=== PATIENT | female | born 1950 | race Caucasian/White ===

== ENCOUNTER 2017-06-02 16:59 | Inpatient (IN) | payer MEDICARE, MEDICAID ==
[~2017-06-02] VITALS: Ht 167.6 cm; Wt 81.6 kg
[~2017-06-02 16:59] MED LIST: ADDERAL20 MG ORAL; AMBIEN5 M1 PO; DILANTIN100 MG ORAL; DILANTIN30 MG ORAL; EFFEXOR XR150 MG ORAL; EFFEXOR-XR150 MG ORAL; LIPITOR80 MG ORAL; MIRALAX17 G2 ORAL; PHENYTOIN MC; TYLENOL650 MG/20. ORAL
--- NOTE | 2017-06-02 17:40 | Emergency Room Report ---
History of Present Illness General Chief Complaint: Head, Face, Neck Trauma Source: Patient, Medical Record, EMS Present Illness HPI 67-year-old female, wheelchair-bound for one month due to unsteady gait, presenting with minor head trauma. Patient states that she was rolling her wheelchair, was going very fast, unable to stop and hit the left side of her face onto a pole. Patient denies falling out of her wheelchair, no LOC. No nausea no vomiting. Denies being on any blood thinners. States that she has a history of seizures but has not had a seizure for many years Denies any other complaints Allergies: Coded Allergies: CODEINE (Verified Allergy, Unknown, 05/10/16) Patient History Past Medical History: see triage record Past Surgical History: none Pertinent Family History: none Last Menstrual Period: na Reviewed Nursing Documentation: PMH: Agreed, PSxH: Agreed Nursing Documentation-PMH Past Medical History: No History, Except For Hx Cardiac Problems: No Hx Asthma: Yes Hx Cancer: No Hx Gastrointestinal Problems: No Hx Seizures: Yes Review of Systems All Other Systems: negative except mentioned in HPI Physical Exam Vital Signs Date Time Temp Pulse Resp B/P (MAP) Pulse Ox O2 Delivery O2 Flow Rate FiO2 06/02/17 17:05 97.2 84 16 137/84 96 Room Air Sp02 EP Interpretation: reviewed, normal General Appearance: normal inspection, well appearing, no apparent distress, alert, GCS 15, non-toxic, other - Calm cooperative Head: normocephalic - Left periorbital region and left forehead with ecchymosis and nonboggy hematoma Eyes: bilateral eye normal inspection, bilateral eye PERRL, bilateral eye EOMI , bilateral eye other - No exophthalmus bilaterally, left periorbital swelling, tender to palpation ENT: normal ENT inspection, normal pharynx, normal voice, moist mucus membranes Neck: normal inspection, full range of motion, supple, no bony tend Respiratory: normal inspection, lungs clear, normal breath sounds, no respiratory distress, no retraction, no wheezing, speaking full sentences, chest symmetrical Cardiovascular #1: normal inspection, regular rate, rhythm, normal capillary refill Cardiovascular #2: 2+ radial (R), 2+ radial (L) Gastrointestinal: normal inspection, non tender, soft, non-distended, no guarding Musculoskeletal: normal inspection, back normal, normal range of motion, non- tender Neurologic: normal inspection, alert, oriented x3, responsive, motor strength/ tone normal, sensory intact, normal gait, speech normal Psychiatric: normal inspection, judgement/insight normal, memory normal Skin: normal inspection, normal color, no rash, warm/dry, well hydrated, normal turgor Medical Decision Making Diagnostic Impression: Primary Impression: Unsteady gait Additional Impressions: UTI (urinary tract infection) Minor head injury ER Course 67-year-old female with minor head injury after a mechanical accident DDX: Rule out intracranial process/orbital fractures Plan: CT head pain control ER course: Patient has remained stable during ED stay. CT head neg +UTI Disposition: Pt admitted to med surg Patient was signed out to Dr. Vitor Moore, who has accepted patient for admission. Please note that this Emergency Department Report was dictated using [employer] mixer technology software, occasionally this can lead to erroneous entry secondary to interpretation by the dictation equipment Laboratory Tests Test 06/02/17 18:53 06/02/17 19:11 White Blood Count 9.0 K/UL (4.8-10.8) Red Blood Count 4.49 M/UL (4.20-5.40) Hemoglobin 13.9 G/DL (12.0-16.0) Hematocrit 41.6 % (37.0-47.0) Mean Corpuscular Volume 93 FL (80-99) Mean Corpuscular Hemoglobin 30.9 PG (27.0-31.0) Mean Corpuscular Hemoglobin Concent 33.3 G/DL (32.0-36.0) Red Cell Distribution Width 12.3 % (11.6-14.8) Platelet Count 243 K/UL (150-450) Mean Platelet Volume 6.0 FL (6.5-10.1) L Neutrophils (%) (Auto) 51.9 % (45.0-75.0) Lymphocytes (%) (Auto) 36.6 % (20.0-45.0) Monocytes (%) (Auto) 7.7 % (1.0-10.0) Eosinophils (%) (Auto) 2.5 % (0.0-3.0) Basophils (%) (Auto) 1.3 % (0.0-2.0) Sodium Level 141 mEQ/L (135-145) Potassium Level 4.0 mEQ/L (3.4-4.9) Chloride Level 103 mEQ/L (98-107) Carbon Dioxide Level 29 mEQ/L (20-30) Anion Gap 9 (5-15) Blood Urea Nitrogen 13 mg/dL (7-23) Creatinine 0.7 mg/dL (0.5-0.9) Estimate Glomerular Filtration Rate > 60 mL/min (>60) Glucose Level 162 mg/dL (74-106) H Calcium Level 8.5 mg/dL (8.6-10.2) L Total Bilirubin < 0.2 mg/dL (0.0-1.2) Aspartate Amino Transferase (AST) 19 U/L (5-40) Alanine Aminotransferase (ALT) 13 U/L (3-33) Alkaline Phosphatase 95 U/L (35-104) Total Creatine Kinase 70 U/L (26-140) Creatine Kinase MB 1.8 ng/mL (< 3.8) Creatine Kinase MB Relative Index 2.5 Troponin I < 0.30 ng/mL (<=0.30) Total Protein 6.2 g/dL (6.6-8.7) L Albumin 3.7 g/dL (3.5-5.2) Globulin 2.5 g/dL Albumin/Globulin Ratio 1.4 (1.0-2.7) Urine Color [place] Urine Appearance Slightly cloudy Urine pH 7 (4.5-8.0) Urine Specific [place] 1.010 (1.005-1.035) Urine Protein Negative (NEGATIVE) Urine Glucose (UA) Negative (NEGATIVE) Urine Ketones Negative (NEGATIVE) Urine Occult Blood 1+ (NEGATIVE) H Urine Nitrite Negative (NEGATIVE) Urine Bilirubin Negative (NEGATIVE) Urine Ictotest Negative Urine Urobilinogen Normal MG/DL (0.0-1.0) Urine Leukocyte Esterase 3+ (NEGATIVE) H Urine RBC 2-4 /HPF (0 - 2) H Urine WBC 20-30 /HPF (0 - 2) H Urine Squamous Epithelial Cells Many /LPF (NONE/OCC) H Urine Bacteria Moderate /HPF (NONE) H EKG Diagnostic Results Rate: normal Rhythm: NSR ST Segments: no acute changes ASA given to the pt in ED: No Rhythm Strip Diag. Results EP Interpretation: yes Rate: 79 Rhythm: NSR, no PVC's, no ectopy CT/MRI/US Diagnostic Results CT/MRI/US Diagnostic Results : Imaging Test Ordered: CT head Impression no acute intracranial findings L periorbital contusion Electronically signed by Tiffany Spear MD Last Vital Signs Date Time Temp Pulse Resp B/P (MAP) Pulse Ox O2 Delivery O2 Flow Rate FiO2 06/02/17 17:05 97.2 84 16 137/84 96 Room Air Disposition: ADMITTED INPATIENT Condition: Serious Tiffany Spear M.D. Jun 02, 2017 17:40
[2017-06-02 18:25] VITALS: BP 134/79
[2017-06-02 19:05] LABS: BASOPHILS % (AUTO) 1.3 % (0.0-2.0); EOSINOPHILS % (AUTO) 2.5 % (0.0-3.0); LYMPHOCYTES % (AUTO) 36.6 % (20.0-45.0); MEAN CORPUSCULAR HEMOGLOBIN 30.9 PG (27.0-31.0); MEAN CORPUSCULAR HGB CONC 33.3 G/DL (32.0-36.0); MEAN CORPUSCULAR VOLUME 93 FL (80-99); MONOCYTES % (AUTO) 7.7 % (1.0-10.0); NEUTROPHILS % (AUTO) 51.9 % (45.0-75.0); PLATELET COUNT 243 K/UL (150-450); RED BLOOD COUNT 4.49 M/UL (4.20-5.40); RED CELL DISTRIBUTION WIDTH 12.3 % (11.6-14.8)
[2017-06-02 19:22] LABS: ALANINE AMINOTRANSFERASE 13 U/L (3-33); ALBUMIN/GLOBULIN RATIO 1.4 (1.0-2.7); ANION GAP 9 (5-15); ASPARTATE AMINO TRANSFERASE 19 U/L (5-40); CALCIUM 8.5 mg/dL (8.6-10.2); CARBON DIOXIDE 29 mEQ/L (20-30); CHLORIDE 103 mEQ/L (98-107); CREATININE 0.7 mg/dL (0.5-0.9); GLOMERULAR FILTRATION RATE > 60 mL/min (>60); HEMOLYSIS 4; SODIUM 141 mEQ/L (135-145); TOTAL PROTEIN 6.2 g/dL (6.6-8.7); TROPONIN I < 0.30 ng/mL (<=0.30)
[2017-06-02 19:33] LABS: CKMB 1.8 ng/mL (< 3.8)
[2017-06-02 19:39] LABS: APPEARANCE,URINE SLIGHTLY CLOUDY; KETONES,URINE NEGATIVE (NEGATIVE); LEUKOCYTE ESTERASE ,URINE 3+ (NEGATIVE); NITRITE,URINE NEGATIVE (NEGATIVE); PH,URINE 7 (4.5-8.0); PROTEIN,URINE NEGATIVE (NEGATIVE); UROBILINOGEN,URINE NORMAL MG/DL (0.0-1.0)
[2017-06-02 19:50] LABS: BACTERIA,URINE MODERATE /HPF; ICTOTEST NEGATIVE; SQUAMOUS EPITHELIAL CELL,UR MANY /LPF (NONE/OCC); WBC,URINE 20-30 /HPF (0 - 2)
[2017-06-02] MEDS ORDERED: cefTRIAXone 1 GM in NS 55 ML IVPB ONE (20:00)
[2017-06-02] MEDS ORDERED: LORAZEPAM1 MG ORAL (20:10)
[2017-06-02] MEDS ORDERED: DUONEB 0.5-3(2.53 ML HHN (20:10)
[2017-06-02] MEDS ORDERED: MIRTAZAPINE15 MG ORAL (20:10)
[2017-06-02] MEDS ORDERED: ADULT ROBITUSS118 ML ORAL (20:10)
[2017-06-02] MEDS ORDERED: EFFEXOR XR75 MG ORAL (20:10)
[2017-06-02] MEDS ORDERED: TRAZODONE HCL50 MG ORAL (20:10)
[2017-06-02] MEDS ORDERED: IBUPROFEN600 MG ORAL (20:10)
[2017-06-02] MEDS ORDERED: DILANTIN-1125 MG/5 M PO (20:10)
[2017-06-02] MEDS ORDERED: ADDERAL20 MG ORAL (20:10)
[2017-06-02] MEDS ORDERED: ABILIFY20 MG ORAL (20:10)
[2017-06-02] MEDS ORDERED: COLACE100 MG ORAL (20:10)
[2017-06-02] MEDS ORDERED: DEPAKOTE500 MG PO ×2 (20:10)
[2017-06-02 20:40] VITALS: BP 132/18
[2017-06-02 22:20] VITALS: BP 136/18
[2017-06-02] MEDS ORDERED: LORazepam 1mg tab ORAL PRN (22:30)
[2017-06-02] MEDS ORDERED: Mylanta II UD 30ml ORAL PRN (22:30)
[2017-06-02] MEDS ORDERED: Miralax 17gm pkt ORAL PRN (22:30)
[2017-06-03 04:00] VITALS: BP_SYST 132; BP_SYST 152; BP_DIAS 79; BP_DIAS 91
[2017-06-03 08:00] VITALS: BP 133/66
[2017-06-03 08:00] LABS: BASOPHILS % (AUTO) 1.6 % (0.0-2.0); EOSINOPHILS % (AUTO) 4.5 % (0.0-3.0); LYMPHOCYTES % (AUTO) 31.8 % (20.0-45.0); MEAN CORPUSCULAR HEMOGLOBIN 32.1 PG (27.0-31.0); MEAN CORPUSCULAR HGB CONC 34.6 G/DL (32.0-36.0); MEAN CORPUSCULAR VOLUME 93 FL (80-99); MEAN PLATELET VOLUME 6.8 FL (6.5-10.1); MONOCYTES % (AUTO) 8.8 % (1.0-10.0); NEUTROPHILS % (AUTO) 53.3 % (45.0-75.0); PLATELET COUNT 283 K/UL (150-450); RED BLOOD COUNT 4.85 M/UL (4.20-5.40); RED CELL DISTRIBUTION WIDTH 12.2 % (11.6-14.8); WHITE BLOOD COUNT 7.3 K/UL (4.8-10.8)
[2017-06-03 08:22] LABS: ALANINE AMINOTRANSFERASE 15 U/L (3-33); ALBUMIN/GLOBULIN RATIO 1.3 (1.0-2.7); ANION GAP 10 (5-15); ASPARTATE AMINO TRANSFERASE 20 U/L (5-40); CALCIUM 9.6 mg/dL (8.6-10.2); CARBON DIOXIDE 32 mEQ/L (20-30); CHLORIDE 102 mEQ/L (98-107); CHOLESTEROL 202 mg/dL (< 200); CHOLESTEROL/HDL RATIO 2.3 (3.3-4.4); CREATININE 0.7 mg/dL (0.5-0.9); GLOMERULAR FILTRATION RATE > 60 mL/min (>60); HEMOLYSIS 4; LDL CHOLESTEROL CALC 92 mg/dL (60-99); SODIUM 144 mEQ/L (135-145); TOTAL PROTEIN 7.1 g/dL (6.6-8.7)
[2017-06-03] MEDS: Venlafaxine XR 75mg cap ORAL SCH ×2 (08:27→17:33)
[2017-06-03] MEDS: ARIPiprazole 10mg tab ORAL SCH (08:27)
[2017-06-03] MEDS: Morphine Sulfate 2mg/ml Inj IVP PRN ×3 (08:28→17:34)
[2017-06-03] MEDS ORDERED: Phenytoin Susp 100mg/4ml ORAL SCH (09:00)
[2017-06-03] MEDS ORDERED: Venlafaxine XR 75mg cap ORAL SCH (09:00)
--- NOTE | 2017-06-03 09:26 | Diagnostic Imaging Report ---
Indication: Headache Technique: Contiguous 5 mm thick transaxial imaging of the head obtained in a Siemens Sensation [address] scanner. Soft tissue and bone windows generated. Total Dose length Product (DLP): [address] Dose Index Volume (CTDIvol): 70.38, 0.15 mGy Comparison: 05/10/2016 Findings: There is mild prominence of the ventricles, basal cisterns, and cerebral sulci consistent with atrophy. Mild, nonspecific, white matter hypoattenuation is noted throughout the brain consistent with chronic small vessel disease. There is no midline shift, edema, acute hemorrhage, mass effect, or abnormal extra-axial fluid collections. There is no fracture. There is soft tissue swelling over the left supraorbital and periorbital soft tissues. Impression: No acute intracranial bleed, mass effect or edema. Mild atrophy of the brain. Nonspecific white matter hypoattenuation probably due to chronic small vessel disease. Left periorbital/portable soft tissue contusion The CT scanner at [facility] is accredited by the [employer] and the scans are performed using dose optimization techniques as appropriate to a performed exam including Automatic Exposure control.
--- NOTE | 2017-06-03 11:00 | Diagnostic Imaging Report ---
Indication: Dyspnea Comparison: 05/10/16 A single view chest radiograph was obtained. Findings: Cardiomediastinal appearance is within normal limits for age. Pulmonary vascularity is appropriate. The diaphragmatic contour is smooth and costophrenic angles are sharp. No pleural effusions are identified. The bones are osteopenic. Impression: No acute findings
[2017-06-03 11:56] VITALS: BP 139/80
--- NOTE | 2017-06-03 12:31 | Neurology Progress Note ---
Objective Physical Exam Last Vital Signs Date Time Temp Pulse Resp B/P (MAP) Pulse Ox O2 Delivery O2 Flow Rate FiO2 06/03/17 11:56 97.5 78 18 139/80 96 Room Air Laboratory Tests Test 06/02/17 18:53 06/02/17 19:11 06/03/17 06:50 White Blood Count 9.0 K/UL (4.8-10.8) 7.3 K/UL (4.8-10.8) Red Blood Count 4.49 M/UL (4.20-5.40) 4.85 M/UL (4.20-5.40) Hemoglobin 13.9 G/DL (12.0-16.0) 15.6 G/DL (12.0-16.0) Hematocrit 41.6 % (37.0-47.0) 45.1 % (37.0-47.0) Mean Corpuscular Volume 93 FL (80-99) 93 FL (80-99) Mean Corpuscular Hemoglobin 30.9 PG (27.0-31.0) 32.1 PG (27.0-31.0) H Mean Corpuscular Hemoglobin Concent 33.3 G/DL (32.0-36.0) 34.6 G/DL (32.0-36.0) Red Cell Distribution Width 12.3 % (11.6-14.8) 12.2 % (11.6-14.8) Platelet Count 243 K/UL (150-450) 283 K/UL (150-450) Mean Platelet Volume 6.0 FL (6.5-10.1) L 6.8 FL (6.5-10.1) Neutrophils (%) (Auto) 51.9 % (45.0-75.0) 53.3 % (45.0-75.0) Lymphocytes (%) (Auto) 36.6 % (20.0-45.0) 31.8 % (20.0-45.0) Monocytes (%) (Auto) 7.7 % (1.0-10.0) 8.8 % (1.0-10.0) Eosinophils (%) (Auto) 2.5 % (0.0-3.0) 4.5 % (0.0-3.0) H Basophils (%) (Auto) 1.3 % (0.0-2.0) 1.6 % (0.0-2.0) Sodium Level 141 mEQ/L (135-145) 144 mEQ/L (135-145) Potassium Level 4.0 mEQ/L (3.4-4.9) 5.0 mEQ/L (3.4-4.9) H Chloride Level 103 mEQ/L (98-107) 102 mEQ/L (98-107) Carbon Dioxide Level 29 mEQ/L (20-30) 32 mEQ/L (20-30) H Anion Gap 9 (5-15) 10 (5-15) Blood Urea Nitrogen 13 mg/dL (7-23) 12 mg/dL (7-23) Creatinine 0.7 mg/dL (0.5-0.9) 0.7 mg/dL (0.5-0.9) Estimat Glomerular Filtration Rate > 60 mL/min (>60) > 60 mL/min (>60) Glucose Level 162 mg/dL (74-106) H 114 mg/dL (74-106) H Calcium Level 8.5 mg/dL (8.6-10.2) L 9.6 mg/dL (8.6-10.2) Total Bilirubin < 0.2 mg/dL (0.0-1.2) 0.3 mg/dL (0.0-1.2) Aspartate Amino Transf (AST/SGOT) 19 U/L (5-40) 20 U/L (5-40) Alanine Aminotransferase (ALT/SGPT) 13 U/L (3-33) 15 U/L (3-33) Alkaline Phosphatase 95 U/L (35-104) 99 U/L (35-104) Total Creatine Kinase 70 U/L (26-140) Creatine Kinase MB 1.8 ng/mL (< 3.8) Creatine Kinase MB Relative Index 2.5 Troponin I < 0.30 ng/mL (<=0.30) Total Protein 6.2 g/dL (6.6-8.7) L 7.1 g/dL (6.6-8.7) Albumin 3.7 g/dL (3.5-5.2) 4.1 g/dL (3.5-5.2) Globulin 2.5 g/dL 3.0 g/dL Albumin/Globulin Ratio 1.4 (1.0-2.7) 1.3 (1.0-2.7) Urine Color [place] Urine Appearance Slightly cloudy Urine pH 7 (4.5-8.0) Urine Specific [place] 1.010 (1.005-1.035) Urine Protein Negative (NEGATIVE) Urine Glucose (UA) Negative (NEGATIVE) Urine Ketones Negative (NEGATIVE) Urine Occult Blood 1+ (NEGATIVE) H Urine Nitrite Negative (NEGATIVE) Urine Bilirubin Negative (NEGATIVE) Urine Ictotest Negative Urine Urobilinogen Normal MG/DL (0.0-1.0) Urine Leukocyte Esterase 3+ (NEGATIVE) H Urine RBC 2-4 /HPF (0 - 2) H Urine WBC 20-30 /HPF (0 - 2) H Urine Squamous Epithelial Cells Many /LPF (NONE/OCC) H Urine Bacteria Moderate /HPF (NONE) H Triglycerides Level 109 mg/dL (< 150) Cholesterol Level 202 mg/dL (< 200) H LDL Cholesterol 92 mg/dL (60-99) HDL Cholesterol 88 mg/dL (> 60) H Cholesterol/HDL Ratio 2.3 (3.3-4.4) L Thyroid Stimulating Hormone (TSH) 1.850 uIU/mL (0.300-4.500) Impression/Recommendations Recommendations # [id number] NICOLE HENDERSON Jun 03, 2017 12:31
--- NOTE | 2017-06-03 12:55 | Diagnostic Imaging Report ---
APPROVED REPORT CPT Code: 52172 Present Symptoms Lower Extremity Pain: Bilateral Comments: Fall BILATERAL: Imaging reveals a patent deep venous system bilaterally. There is no evidence of thrombus within the femoral, popliteal or tibial segments. The greater saphenous veins are also within normal limits. Doppler indicates normal spontaneous flow within these segments.
--- NOTE | 2017-06-03 14:28 | Consultation ---
History of Present Illness General Date patient seen: Jun 03, 2017 Chief Complaint: Head, Face, Neck Trauma Referring physician: Dr. Moore Reason for Consultation: Inpatient management Present Illness HPI 67-year-old female with hx of COPD, seizures, psychosis, long term resident wheelchair-bound for one month due to unsteady gait, presenting with minor head trauma. Patient states that she was rolling her wheelchair, was going very fast , unable to stop and hit the left side of her face onto a pole. Patient denies falling out of her wheelchair, no LOC. No nausea no vomiting. Denies being on any blood thinners. States that she has a history of seizures but has not had a seizure for many years. she is admitted for observation. Allergies: Coded Allergies: CODEINE (Verified Allergy, Unknown, 05/10/16) Medication History Scheduled Aripiprazole* (Abilify*), 20 MG ORAL DAILY, (Reported) Atorvastatin (Lipitor), 10 MG ORAL BEDTIME, (Reported) Dextroamphetamine/Amphetamine (Adderall 20 mg Tablet), 10 MG ORAL ACBREAKFAST, ( Reported) Divalproex Sodium (Depakote), 750 MG PO BEFORE BREAKFAST, (Reported) Divalproex Sodium (Depakote), 500 MG PO BEDTIME, (Reported) Docusate Sodium* (Colace*), 100 MG ORAL TWICE A DAY, (Reported) Guaifenesin/Dextromethorphan* (Adult Robitussin Peak Cold Liq*), 10 ML ORAL Q4H, (Reported) Mirtazapine* (Remeron*), 7.5 MG ORAL BEDTIME, (Reported) Phenytoin (Dilantin), 200 MG ORAL BID, (Reported) Phenytoin (Dilantin-125), 250 MG PO BID, (Reported) Trazodone Hcl* (Desyrel*), 50 MG ORAL BEDTIME, (Reported) Venlafaxine Hcl* (Effexor Xr*), 150 MG ORAL DAILY, (Reported) Venlafaxine Hcl* (Effexor Xr*), 75 MG ORAL BID, (Reported) Scheduled PRN Acetaminophen (Acetaminophen), 650 MG ORAL Q4HR PRN for Prn Headache/Temp > 101, (Reported) Ibuprofen* (Motrin*), 600 MG ORAL Q6H PRN for For Pain, (Reported) Ipratropium/Albuterol Sulfate (DuoNeb 0.5-3(2.5)mg/3ml), 3 ML HHN for Shortness of Breath, (Reported) Lorazepam* (Lorazepam*), 1 MG ORAL EVERY 6 HOURS PRN for anxiety, (Reported) Polyethylene Glycol 3350* (Miralax*), 17 GM ORAL DAILY PRN for Insomnia, ( Reported) Zolpidem Tartrate (Ambien), 5 MG PO NEEDED PRN for Insomnia, (Reported) Patient History Healthcare decision maker N Resuscitation status Full Code Advanced Directive on File Past Medical/Surgical History Past Medical/Surgical History: (1) Psychosis (2) Seizures Review of Systems All Other Systems: negative except mentioned in HPI Physical Exam General Appearance: WD/WN Lines, tubes and drains: peripheral Neck: non-tender, normal alignment Respiratory/Chest: chest wall non-tender, lungs clear, normal breath sounds Breasts: no masses Cardiovascular/Chest: normal rate, regular rhythm Abdomen: normal bowel sounds, non tender Genitourinary/Rectal: normal genital exam Extremities: normal range of motion, non-tender Last 24 Hour Vital Signs Date Time Temp Pulse Resp B/P (MAP) Pulse Ox O2 Delivery O2 Flow Rate FiO2 06/03/17 13:33 97.5 06/03/17 11:56 97.5 78 18 139/80 96 Room Air 06/03/17 08:00 96.4 81 18 133/66 95 Room Air 06/03/17 04:00 97.0 84 20 152/91 95 Room Air 06/02/17 22:45 84 18 136/78 98 Room Air 06/02/17 22:20 98.1 82 16 136/18 98 Room Air 06/02/17 20:40 98.1 80 16 132/18 98 Room Air 06/02/17 18:57 97.3 06/02/17 18:25 97.2 85 17 134/79 98 Room Air 06/02/17 17:05 97.2 84 16 137/84 96 Room Air Intake and Output 06/03/17 06/04/17 19:00 07:00 Intake Total 840 ml Balance 840 ml Intake Oral 840 ml # Voids 3 Laboratory Tests Test 06/02/17 18:53 06/02/17 19:11 06/03/17 06:50 White Blood Count 9.0 K/UL (4.8-10.8) 7.3 K/UL (4.8-10.8) Red Blood Count 4.49 M/UL (4.20-5.40) 4.85 M/UL (4.20-5.40) Hemoglobin 13.9 G/DL (12.0-16.0) 15.6 G/DL (12.0-16.0) Hematocrit 41.6 % (37.0-47.0) 45.1 % (37.0-47.0) Mean Corpuscular Volume 93 FL (80-99) 93 FL (80-99) Mean Corpuscular Hemoglobin 30.9 PG (27.0-31.0) 32.1 PG (27.0-31.0) H Mean Corpuscular Hemoglobin Concent 33.3 G/DL (32.0-36.0) 34.6 G/DL (32.0-36.0) Red Cell Distribution Width 12.3 % (11.6-14.8) 12.2 % (11.6-14.8) Platelet Count 243 K/UL (150-450) 283 K/UL (150-450) Mean Platelet Volume 6.0 FL (6.5-10.1) L 6.8 FL (6.5-10.1) Neutrophils (%) (Auto) 51.9 % (45.0-75.0) 53.3 % (45.0-75.0) Lymphocytes (%) (Auto) 36.6 % (20.0-45.0) 31.8 % (20.0-45.0) Monocytes (%) (Auto) 7.7 % (1.0-10.0) 8.8 % (1.0-10.0) Eosinophils (%) (Auto) 2.5 % (0.0-3.0) 4.5 % (0.0-3.0) H Basophils (%) (Auto) 1.3 % (0.0-2.0) 1.6 % (0.0-2.0) Sodium Level 141 mEQ/L (135-145) 144 mEQ/L (135-145) Potassium Level 4.0 mEQ/L (3.4-4.9) 5.0 mEQ/L (3.4-4.9) H Chloride Level 103 mEQ/L (98-107) 102 mEQ/L (98-107) Carbon Dioxide Level 29 mEQ/L (20-30) 32 mEQ/L (20-30) H Anion Gap 9 (5-15) 10 (5-15) Blood Urea Nitrogen 13 mg/dL (7-23) 12 mg/dL (7-23) Creatinine 0.7 mg/dL (0.5-0.9) 0.7 mg/dL (0.5-0.9) Estimat Glomerular Filtration Rate > 60 mL/min (>60) > 60 mL/min (>60) Glucose Level 162 mg/dL (74-106) H 114 mg/dL (74-106) H Calcium Level 8.5 mg/dL (8.6-10.2) L 9.6 mg/dL (8.6-10.2) Total Bilirubin < 0.2 mg/dL (0.0-1.2) 0.3 mg/dL (0.0-1.2) Aspartate Amino Transf (AST/SGOT) 19 U/L (5-40) 20 U/L (5-40) Alanine Aminotransferase (ALT/SGPT) 13 U/L (3-33) 15 U/L (3-33) Alkaline Phosphatase 95 U/L (35-104) 99 U/L (35-104) Total Creatine Kinase 70 U/L (26-140) Creatine Kinase MB 1.8 ng/mL (< 3.8) Creatine Kinase MB Relative Index 2.5 Troponin I < 0.30 ng/mL (<=0.30) Total Protein 6.2 g/dL (6.6-8.7) L 7.1 g/dL (6.6-8.7) Albumin 3.7 g/dL (3.5-5.2) 4.1 g/dL (3.5-5.2) Globulin 2.5 g/dL 3.0 g/dL Albumin/Globulin Ratio 1.4 (1.0-2.7) 1.3 (1.0-2.7) Urine Color [place] Urine Appearance Slightly cloudy Urine pH 7 (4.5-8.0) Urine Specific [place] 1.010 (1.005-1.035) Urine Protein Negative (NEGATIVE) Urine Glucose (UA) Negative (NEGATIVE) Urine Ketones Negative (NEGATIVE) Urine Occult Blood 1+ (NEGATIVE) H Urine Nitrite Negative (NEGATIVE) Urine Bilirubin Negative (NEGATIVE) Urine Ictotest Negative Urine Urobilinogen Normal MG/DL (0.0-1.0) Urine Leukocyte Esterase 3+ (NEGATIVE) H Urine RBC 2-4 /HPF (0 - 2) H Urine WBC 20-30 /HPF (0 - 2) H Urine Squamous Epithelial Cells Many /LPF (NONE/OCC) H Urine Bacteria Moderate /HPF (NONE) H Triglycerides Level 109 mg/dL (< 150) Cholesterol Level 202 mg/dL (< 200) H LDL Cholesterol 92 mg/dL (60-99) HDL Cholesterol 88 mg/dL (> 60) H Cholesterol/HDL Ratio 2.3 (3.3-4.4) L Thyroid Stimulating Hormone (TSH) 1.850 uIU/mL (0.300-4.500) Phenytoin (Dilantin) Level 31.4 ug/mL (10-20) *H Valproic Acid (Depakene) Level 16 ug/mL (50-100) L Microbiology Date/Time Source Procedure Growth Status 06/02/17 19:11 Urine,Clean Catch Urine Culture - Preliminary NO GROWTH Resulted Height (Feet): 5 Height (Inches): 6.00 Weight (Pounds): 180 Medications Current Medications Medications (Trade) Dose Ordered Sig/Tho Route PRN Reason Start Time Stop Time Status Last Admin Dose Admin Acetaminophen (Tylenol) 650 mg Q4H PRN ORAL fever 06/02/17 22:30 07/02/17 22:29 Al Hydroxide/Mg Hydroxide (Mylanta II) 30 ml Q6H PRN ORAL dyspepsia 06/02/17 22:30 07/02/17 22:29 Aripiprazole (Abilify) 20 mg DAILY ORAL 06/03/17 09:00 07/03/17 08:59 06/03/17 08:27 Dextrose (Dextrose 50%) STAT PRN IV Hypoglycemia 06/02/17 22:30 07/02/17 22:29 Divalproex Sodium (Depakote) 500 mg BEDTIME ORAL 06/03/17 21:00 07/03/17 20:59 Lorazepam (Ativan 2mg/ml 1ml) 0.5 mg Q4H PRN IV For Anxiety 06/02/17 22:30 06/09/17 22:29 Mirtazapine (Remeron) 7.5 mg BEDTIME ORAL 06/03/17 21:00 07/03/17 20:59 Morphine Sulfate (Morphine Sulfate) 1 mg EVERY 4 HOURS PRN IVP For Pain 06/02/17 22:30 06/09/17 22:29 06/03/17 13:03 Ondansetron HCl (Zofran) 4 mg Q6H PRN IVP Nausea & Vomiting 06/02/17 22:30 07/02/17 22:29 Polyethylene Glycol (Miralax) 17 gm HSPRN PRN ORAL Constipation 06/02/17 22:30 07/02/17 22:29 Trazodone HCl (Desyrel) 50 mg BEDTIME ORAL 06/03/17 21:00 07/03/17 20:59 Venlafaxine HCl (Effexor-XR) 150 mg BID ORAL 06/03/17 09:00 07/03/17 08:59 06/03/17 08:27 Zolpidem Tartrate (Ambien) 5 mg HSPRN PRN ORAL Insomnia 06/02/17 22:30 06/09/17 22:29 Assessment/Plan Problem List: (1) Altered level of consciousness ICD Codes: R40.4 - Transient alteration of awareness SNOMED: 1621230 (2) Confusion ICD Codes: R41.0 - Disorientation, unspecified SNOMED: 826602799 (3) Seizures ICD Codes: R56.9 - Unspecified convulsions SNOMED: 25018010 (4) Unsteady gait ICD Codes: R26.81 - Unsteadiness on feet SNOMED: 55466299, 347101424 Assessment/Plan neuro evaluation symptomatic treatment respiratory treatment dvt prophylaxis' pt/ot SHYAM PALENCIA Jun 03, 2017 14:28
[2017-06-03 16:14] VITALS: BP 154/91
[2017-06-03] MEDS: LORazepam Inj 2mg/ml 1ml IV PRN ×2 (17:33→21:36)
--- NOTE | 2017-06-03 17:39 | Infectious Diseases Prog Note ---
Assessment/Plan Problems: (1) UTI (urinary tract infection) Assessment & Plan: will start cefepime empirically, and send urine culture (2) Minor head injury Assessment & Plan: due to facial trauma, continue neuro check, neurology is following (3) Confusion Assessment & Plan: due to the above, will continue antibiotics, neurology is following Subjective Allergies: Coded Allergies: CODEINE (Verified Allergy, Unknown, 05/10/16) Objective Vital Signs Last 24 Hour Vital Signs Date Time Temp Pulse Resp B/P (MAP) Pulse Ox O2 Delivery O2 Flow Rate FiO2 06/03/17 16:14 97.3 79 18 154/91 95 Room Air 06/03/17 13:33 97.5 06/03/17 11:56 97.5 78 18 139/80 96 Room Air 06/03/17 08:00 96.4 81 18 133/66 95 Room Air 06/03/17 04:00 97.0 84 20 152/91 95 Room Air 06/02/17 22:45 84 18 136/78 98 Room Air 06/02/17 22:20 98.1 82 16 136/18 98 Room Air 06/02/17 20:40 98.1 80 16 132/18 98 Room Air 06/02/17 18:57 97.3 06/02/17 18:25 97.2 85 17 134/79 98 Room Air Height (Feet): 5 Height (Inches): 6.00 Weight (Pounds): 180 Microbiology Date/Time Source Procedure Growth Status 06/02/17 19:11 Urine,Clean Catch Urine Culture - Preliminary NO GROWTH Resulted Laboratory Tests Test 06/02/17 18:53 06/02/17 19:11 06/03/17 06:50 White Blood Count 9.0 K/UL (4.8-10.8) 7.3 K/UL (4.8-10.8) Red Blood Count 4.49 M/UL (4.20-5.40) 4.85 M/UL (4.20-5.40) Hemoglobin 13.9 G/DL (12.0-16.0) 15.6 G/DL (12.0-16.0) Hematocrit 41.6 % (37.0-47.0) 45.1 % (37.0-47.0) Mean Corpuscular Volume 93 FL (80-99) 93 FL (80-99) Mean Corpuscular Hemoglobin 30.9 PG (27.0-31.0) 32.1 PG (27.0-31.0) H Mean Corpuscular Hemoglobin Concent 33.3 G/DL (32.0-36.0) 34.6 G/DL (32.0-36.0) Red Cell Distribution Width 12.3 % (11.6-14.8) 12.2 % (11.6-14.8) Platelet Count 243 K/UL (150-450) 283 K/UL (150-450) Mean Platelet Volume 6.0 FL (6.5-10.1) L 6.8 FL (6.5-10.1) Neutrophils (%) (Auto) 51.9 % (45.0-75.0) 53.3 % (45.0-75.0) Lymphocytes (%) (Auto) 36.6 % (20.0-45.0) 31.8 % (20.0-45.0) Monocytes (%) (Auto) 7.7 % (1.0-10.0) 8.8 % (1.0-10.0) Eosinophils (%) (Auto) 2.5 % (0.0-3.0) 4.5 % (0.0-3.0) H Basophils (%) (Auto) 1.3 % (0.0-2.0) 1.6 % (0.0-2.0) Sodium Level 141 mEQ/L (135-145) 144 mEQ/L (135-145) Potassium Level 4.0 mEQ/L (3.4-4.9) 5.0 mEQ/L (3.4-4.9) H Chloride Level 103 mEQ/L (98-107) 102 mEQ/L (98-107) Carbon Dioxide Level 29 mEQ/L (20-30) 32 mEQ/L (20-30) H Anion Gap 9 (5-15) 10 (5-15) Blood Urea Nitrogen 13 mg/dL (7-23) 12 mg/dL (7-23) Creatinine 0.7 mg/dL (0.5-0.9) 0.7 mg/dL (0.5-0.9) Estimat Glomerular Filtration Rate > 60 mL/min (>60) > 60 mL/min (>60) Glucose Level 162 mg/dL (74-106) H 114 mg/dL (74-106) H Calcium Level 8.5 mg/dL (8.6-10.2) L 9.6 mg/dL (8.6-10.2) Total Bilirubin < 0.2 mg/dL (0.0-1.2) 0.3 mg/dL (0.0-1.2) Aspartate Amino Transf (AST/SGOT) 19 U/L (5-40) 20 U/L (5-40) Alanine Aminotransferase (ALT/SGPT) 13 U/L (3-33) 15 U/L (3-33) Alkaline Phosphatase 95 U/L (35-104) 99 U/L (35-104) Total Creatine Kinase 70 U/L (26-140) Creatine Kinase MB 1.8 ng/mL (< 3.8) Creatine Kinase MB Relative Index 2.5 Troponin I < 0.30 ng/mL (<=0.30) Total Protein 6.2 g/dL (6.6-8.7) L 7.1 g/dL (6.6-8.7) Albumin 3.7 g/dL (3.5-5.2) 4.1 g/dL (3.5-5.2) Globulin 2.5 g/dL 3.0 g/dL Albumin/Globulin Ratio 1.4 (1.0-2.7) 1.3 (1.0-2.7) Urine Color [place] Urine Appearance Slightly cloudy Urine pH 7 (4.5-8.0) Urine Specific [place] 1.010 (1.005-1.035) Urine Protein Negative (NEGATIVE) Urine Glucose (UA) Negative (NEGATIVE) Urine Ketones Negative (NEGATIVE) Urine Occult Blood 1+ (NEGATIVE) H Urine Nitrite Negative (NEGATIVE) Urine Bilirubin Negative (NEGATIVE) Urine Ictotest Negative Urine Urobilinogen Normal MG/DL (0.0-1.0) Urine Leukocyte Esterase 3+ (NEGATIVE) H Urine RBC 2-4 /HPF (0 - 2) H Urine WBC 20-30 /HPF (0 - 2) H Urine Squamous Epithelial Cells Many /LPF (NONE/OCC) H Urine Bacteria Moderate /HPF (NONE) H Triglycerides Level 109 mg/dL (< 150) Cholesterol Level 202 mg/dL (< 200) H LDL Cholesterol 92 mg/dL (60-99) HDL Cholesterol 88 mg/dL (> 60) H Cholesterol/HDL Ratio 2.3 (3.3-4.4) L Thyroid Stimulating Hormone (TSH) 1.850 uIU/mL (0.300-4.500) Phenytoin (Dilantin) Level 31.4 ug/mL (10-20) *H Valproic Acid (Depakene) Level 16 ug/mL (50-100) L Current Medications Medications (Trade) Dose Ordered Sig/Tho Route PRN Reason Start Time Stop Time Status Last Admin Dose Admin Acetaminophen (Tylenol) 650 mg Q4H PRN ORAL fever 06/02/17 22:30 07/02/17 22:29 Al Hydroxide/Mg Hydroxide (Mylanta II) 30 ml Q6H PRN ORAL dyspepsia 06/02/17 22:30 07/02/17 22:29 Aripiprazole (Abilify) 20 mg DAILY ORAL 06/03/17 09:00 07/03/17 08:59 06/03/17 08:27 Dextrose (Dextrose 50%) STAT PRN IV Hypoglycemia 06/02/17 22:30 07/02/17 22:29 Divalproex Sodium (Depakote) 500 mg BEDTIME ORAL 06/03/17 21:00 07/03/17 20:59 Lorazepam (Ativan 2mg/ml 1ml) 0.5 mg Q4H PRN IV For Anxiety 06/02/17 22:30 06/09/17 22:29 06/03/17 17:33 Mirtazapine (Remeron) 7.5 mg BEDTIME ORAL 06/03/17 21:00 07/03/17 20:59 Morphine Sulfate (Morphine Sulfate) 1 mg EVERY 4 HOURS PRN IVP For Pain 06/02/17 22:30 06/09/17 22:29 06/03/17 17:34 Ondansetron HCl (Zofran) 4 mg Q6H PRN IVP Nausea & Vomiting 06/02/17 22:30 07/02/17 22:29 Polyethylene Glycol (Miralax) 17 gm HSPRN PRN ORAL Constipation 06/02/17 22:30 07/02/17 22:29 Trazodone HCl (Desyrel) 50 mg BEDTIME ORAL 06/03/17 21:00 07/03/17 20:59 Venlafaxine HCl (Effexor-XR) 150 mg BID ORAL 06/03/17 09:00 07/03/17 08:59 06/03/17 17:33 Zolpidem Tartrate (Ambien) 5 mg HSPRN PRN ORAL Insomnia 06/02/17 22:30 06/09/17 22:29 Rivera Shipley M.D. Jun 03, 2017 17:39
[2017-06-03] MEDS: Cefepime HCl 1 GM in D5W 55 ML IVPB SCH (18:16)
--- NOTE | 2017-06-03 19:13 | Cardiology Report ---
APPROVED REPORT EKG Measurement Heart [id number] VA [id number] Normal sinus rhythm Normal ECG
[2017-06-03 19:58] VITALS: BP 112/79
--- NOTE | 2017-06-03 21:30 | Consultation ---
DATE OF CONSULTATION: 06/03/2017 NEUROLOGICAL CONSULTATION REQUESTING PHYSICIAN: iVtor Moore D.O. History of Present Illness: The patient is a 67-year-old female, seen in neurological consultation to evaluate the seizure disorder and episodes of head trauma. According to the patient, she was at her nursing facility sitting in a wheelchair, when she stood up her wheelchair lost control and bumped into the wall hitting her head against the rails falling. She is not sure if she did have some loss of consciousness. With this, she was brought to the emergency room. The patient reported that she is suffering from chronic seizure disorder, which "not usual ones", described a sudden onset of being dizzy, legs buckling up and she would fall down, although she was quite weak with description of her seizures. She indicated her last such episode was about 10 days ago. Last month or two, she is quite unsteady with the walking so she is using more often wheelchair. Her vital signs on admission were stable, blood pressure 137/84 and she was afebrile. Her initial workup included laboratory studies with normal CBC, unremarkable chemistry except glucose 162 and calcium 8.5. Normal lipid, troponin, and CK. Her urinalysis, 20-30 WBC. Imaging studies included a chest x-ray revealing no acute findings. CT scan of the brain revealing no acute intracranial abnormality. There was a mild diffuse atrophy and nonspecific white matter hypoattenuation. There was a left periorbital soft tissue contusion noted. Since admission till present, there was no paroxysmal event noted. Past Medical History: The patient has a history of chronic psychiatric disorder, history of chronic seizure disorder, history of amphetamine dependency presumably for narcolepsy. Medications: Her treatment now includes Abilify, she is on Adderall 10 mg every morning, Depakote 750 mg every morning and 500 mg at bedtime, Robitussin, Motrin, albuterol, lorazepam 1 mg q.6 h. as needed, Remeron 7.5 mg at bedtime, phenytoin 200 mg b.i.d., trazodone 50 mg at bedtime, Effexor 150 mg daily, and zolpidem. ALLERGIES: Codeine. SOCIAL HISTORY: Lives in a nursing facility, previously homeless. FAMILY HISTORY: Noncontributory. Review Of Symptoms: The patient indicates that she is feeling well. She has some discomfort in the injury site of her scalp. She has history of a seizure activity, but no chest pain, no palpitation. History of recent gait abnormality. PHYSICAL EXAMINATION: General: A well-developed and well-nourished female, lying in bed, smiling. VITAL SIGNS: Now stable, blood pressure 132/80 and respiration 14. HEENT: Head, normocephalic with periorbital ecchymosis, but no otorrhea, no rhinorrhea. NECK: Supple. MUSCULOSKELETAL: No injuries. Peripheral pulses 1+ symmetric. Mental Status: She is alert and oriented x3 with no evidence of aphasia or apraxia. Emotionally inappropriate. Cranial Nerve II: Pupils, both responding to light and accommodation. Extraocular movement intact. No nystagmus. CRANIAL NERVE V: Normal corneal responses. CRANIAL NERVE VII: No facial asymmetry. CRANIAL NERVE VIII: Grossly normal hearing. CRANIAL NERVES IX THROUGH XII: With normal limits. Motor Examination: Normal muscle tone and strength 5/5 in all extremities. No involuntary movement. Deep tendon reflexes 1+ symmetric with downgoing toes on both sides. Sensory Exam: Normal to pinprick and light touch. Gait, the patient was very unsteady, she almost fell when unassisted. IMPRESSION: 1. Chronic partial complex seizure disorder, rule out pseudoseizures. 2. Gait ataxia. 3. Polypharmacy. 4. Chronic psychiatric disorder. RECOMMENDATIONS: 1. The patient to be seen by Psychiatrist to streamline her antidepressants and antipsychotic treatment. 2. We will adjust Depakote to keep it in midtherapeutic range, subsequently we will taper off Dilantin. 3. We will check EEG, observe for any paroxysmal events. 4. Get PT/OT and start mobility protocol. Thank you. Cody Michaels M.D. DR: DARLYN JOB#: [id number] CC:
[2017-06-03] MEDS: Depakote 500mg tab ORAL SCH (21:32)
[2017-06-03] MEDS: TraZODone 50mg tab ORAL SCH (21:32)
--- NOTE | 2017-06-03 22:45 | History and Physical Report ---
DATE OF ADMISSION: 06/02/2017 TIME SEEN: At 1 p.m. CONSULTANTS: 1. Cody Michaels M.D. 2. Keon Tejeda M.D. 3. Jules Savage M.D. Chief Complaint: Weakness, unsteady gait, fall, periorbital ecchymosis, and seizure. Brief History: This is a 67-year-old female from [facility], presented with the above-mentioned diagnoses. Apparently, she had a seizure and fell, sustained bilateral periorbital ecchymosis. The patient is calm in bed, slightly weak, no complaints. PAST MEDICAL HISTORY: Include seizures and schizophrenia. PAST SURGICAL HISTORY: Right knee. Medications: Include Depakote, Remeron, Desyrel, Abilify, Effexor, Tylenol, morphine, MiraLAX, Zofran, Ambien, and Ativan. ALLERGIES: Codeine. Social History: Positive smoke. No alcohol. No intravenous drug abuse. FAMILY HISTORY: Noncontributory. Review Of Systems: No chest pain. No shortness of breath. No nausea, vomiting, or diarrhea. PHYSICAL EXAMINATION: General: Calm in bed, slightly weak, oriented x3, and in no acute distress. Vital Signs: Show temperature is 97 degrees, pulse 78, respirations 18, and blood pressure 139/80. HEENT: Bilateral periorbital ecchymosis noted. The patient is able to see. CARDIOVASCULAR: No murmurs. LUNGS: Distant and clear. ABDOMEN: Positive bowel sounds. Nontender and nondistended. EXTREMITIES: No cyanosis, clubbing, or edema. NEUROLOGIC: The patient is moving all extremities. Slightly weak. Laboratory Data: Labs at this time show CBC is normal. BMP shows potassium 5.0, bicarbonate 32, and glucose 114. Cholesterol 202. Urine toxicology, valproic 16 and phenytoin 31.4. Urinalysis, 3+ leukocyte esterase. ASSESSMENT: 1. Weakness. 2. Urinary tract infection. 3. Unsteady gait. 4. Seizure. 5. Periorbital ecchymosis. 6. Schizophrenia. PLAN: 1. Continue premedications. 2. OT, PT, and dietary evaluation. 3. Pain control. 4. Seizure control. 5. CBC and BMP in the morning. 6. Antibiotics per Infectious Disease. 7. Resume home medications. 8. Dr. Michaels, Dr. Tejeda, Dr. Savage, and Dr. Lemons to consult. 9. We will continue to follow this patient medically. Vitor Moore D.O. DR: ESTHELA JOB#: [id number] CC:
[2017-06-03 23:20] VITALS: BP 132/60
--- NOTE | 2017-06-03 23:30 | Consultation ---
DATE OF CONSULTATION: INFECTIOUS DISEASES CONSULTATION REQUESTING PHYSICIAN: Vitor Moore D.O. Reason For Consultation: Urinary tract infection. Recommendation for antibiotic therapy. History of Present Illness: The patient is a 67-year-old female with past medical history of asthma and seizure disorder, who is wheelchair-bound for one month with unsteady gait, was rolling her wheelchair and going fast, unable to stop, so she hit her face into a pole and was brought into the emergency room at [facility] for facial trauma and black eyes. The patient did not lose consciousness. Denied any significant vision changes after the trauma. No nasal drainage or drip. No shortness of breath or cough. No nausea or vomiting. The patient was found to have urinary tract infection in the emergency room. So, she was started on ceftriaxone and I was consulted by the primary provider for antibiotic treatment and further management. Past Medical History: Significant for asthma and seizure and unsteady gait. PAST SURGICAL HISTORY: Negative. Medications: The patient received ceftriaxone. For the rest of her medications, please refer to MAR. ALLERGIES: She is allergic to codeine. Social History: She lives at the [facility]. No recent drugs, tobacco, or alcohol. FAMILY HISTORY: Not contributory. Review of Systems: A 12-point system reviewed, all negative apart from the one I mentioned above in my History and Physical. PHYSICAL EXAMINATION: General: An elderly female with facial ecchymosis and bruises around her eyes, awake, alert, mildly confused, not in distress. Vital Signs: Temperature 97.3 degrees, pulse 97, respiration 18, blood pressure 154/91 and saturation 95% on room air. HEENT: She had black eyes and bruises around both eyes. No bleeding or drainage from her eyes or nose. No eyedrop or prolapse. No ear drainage or bleeding. Moist oral mucosa. No exudate or thrush. NECK: Supple. No lymphadenopathy. Full range of motion. CARDIOVASCULAR: Regular rate and rhythm. No murmur or gallop. LUNGS: Clear bilaterally. No wheezing or rhonchi. Abdomen: Soft, nontender, and nondistended. Positive bowel sounds. No hepatosplenomegaly. EXTREMITIES: No edema or cyanosis. Laboratory And Diagnostic Data: Labs showed white count of 9000, creatinine of 0.7. Urinalysis showed +3 leukocyte esterase, WBC 20 to 30 and moderate amount of bacteria. Imaging, head CT scan showed no acute intracranial bleed, mass effect, or edema. Chest x-ray showed no acute finding. ASSESSMENT/RECOMMENDATION: 1. Urinary tract infection. We will start the patient on cefepime empiric treatment pending urine culture results. 2. Minor head injury due to facial trauma. Continue neuro check. Neurology is following. 3. Confusion, suspect due to head injury. We will continue antibiotics to cover for urine infection. Neurology team is following. Thank you. Rivera Shipley M.D. DR: BRIDGETTE JOB#: [id number] CC:
[2017-06-04] MEDS: Zolpidem 5mg tab ORAL PRN ×2 (01:57→22:26)
[2017-06-04 03:57] VITALS: BP 120/76
[2017-06-04 07:15] LABS: BASOPHILS % (AUTO) 1.2 % (0.0-2.0); EOSINOPHILS % (AUTO) 4.5 % (0.0-3.0); LYMPHOCYTES % (AUTO) 40.8 % (20.0-45.0); MEAN CORPUSCULAR HEMOGLOBIN 32.1 PG (27.0-31.0); MEAN CORPUSCULAR HGB CONC 34.3 G/DL (32.0-36.0); MEAN CORPUSCULAR VOLUME 94 FL (80-99); MEAN PLATELET VOLUME 6.9 FL (6.5-10.1); MONOCYTES % (AUTO) 8.7 % (1.0-10.0); NEUTROPHILS % (AUTO) 44.9 % (45.0-75.0); PLATELET COUNT 236 K/UL (150-450); RED BLOOD COUNT 4.37 M/UL (4.20-5.40); RED CELL DISTRIBUTION WIDTH 12.4 % (11.6-14.8); WHITE BLOOD COUNT 5.7 K/UL (4.8-10.8)
[2017-06-04 07:46] LABS: ANION GAP 11 (5-15); CALCIUM 9.1 mg/dL (8.6-10.2); CARBON DIOXIDE 31 mEQ/L (20-30); CHLORIDE 102 mEQ/L (98-107); CREATININE 0.8 mg/dL (0.5-0.9); GLOMERULAR FILTRATION RATE > 60 mL/min (>60); HEMOLYSIS 0; POTASSIUM 4.7 mEQ/L (3.4-4.9); SODIUM 144 mEQ/L (135-145)
[2017-06-04 08:00] VITALS: BP 132/84
--- NOTE | 2017-06-04 08:30 | Consultation ---
DATE OF CONSULTATION: 06/03/2017 INITIAL PSYCHIATRIC CONSULTATION CONSULTING PHYSICIAN: Hussein Vicente M.D. History Of Present Illness: This is a 67-year-old female patient with unsteady gait. The patient began to 00:15 confusion, disorganized thought process, and mood lability. She states that she has a history of bipolar II disorder. She states she has been delusional. She was admitted to [facility] with unsteady gait and generalized weakness. The patient states that her mood lability is worse and she also has increased depression 00:43 she would like adjustment to her Effexor medication. She normally uses Effexor 75 mg twice a day; however, she is requesting 00:49 to reduce depression and anxiety. Social History: She is financially supported by [employer] and Medicare. She is living in 00:[address] [facility], financially supported by [employer] and [employer]. SUBSTANCE ABUSE HISTORY: Denies drug or alcohol use. ALLERGIES: No known drug allergies. Mental Status Examination: This is a 67-year-old female without psychomotor agitation. 01:10. Denies auditory or visual hallucinations or delusions. Denies suicidal or homicidal thoughts. Insight and judgement are fair. DIAGNOSIS: Bipolar II. Plan: Continue her on Abilify 20 mg daily and Depakote as well as Effexor, but I am going to increase her Effexor to 150 twice a day for maximal effect on reducing her anxiety and depression. Chart reviewed and discussed with staff. Jules Savage M.D. DR: LALO JOB#: [id number] CC:
[2017-06-04] MEDS: ARIPiprazole 10mg tab ORAL SCH (09:36)
[2017-06-04] MEDS: Venlafaxine XR 75mg cap ORAL SCH ×2 (09:37→17:18)
[2017-06-04] MEDS: Cefepime HCl 1 GM in D5W 55 ML IVPB SCH ×3 (09:38→22:27)
[2017-06-04 12:00] VITALS: BP 133/79
--- NOTE | 2017-06-04 12:55 | General Progress Note ---
Assessment/Plan Problem List: (1) UTI (urinary tract infection) ICD Codes: N39.0 - Urinary tract infection, site not specified SNOMED: 71322303, 238195592 (2) Weak ICD Codes: R53.1 - Weakness SNOMED: 53983370 (3) Seizures ICD Codes: R56.9 - Unspecified convulsions SNOMED: 14802598 (4) Confusion ICD Codes: R41.0 - Disorientation, unspecified SNOMED: 575254685 (5) Altered level of consciousness ICD Codes: R40.4 - Transient alteration of awareness SNOMED: 9609338 (6) Unsteady gait ICD Codes: R26.81 - Unsteadiness on feet SNOMED: 26271203, 300207426 (7) Minor head injury ICD Codes: S00.90XA - Unspecified superficial injury of unspecified part of head, initial encounter SNOMED: 661969492 Status: stable, progressing, tolerating diet Assessment/Plan ot pt diet abx cbc bmp am Subjective Constitutional: Reports: weakness Allergies: Coded Allergies: CODEINE (Verified Allergy, Unknown, 05/10/16) All Systems: reviewed and negative except above Subjective calm in bed no seizure Objective Last 24 Hour Vital Signs Date Time Temp Pulse Resp B/P (MAP) Pulse Ox O2 Delivery O2 Flow Rate FiO2 06/04/17 12:00 97.5 80 20 133/79 94 Room Air 06/04/17 08:00 98.1 89 20 132/84 95 Room Air 06/04/17 03:57 98.1 80 19 120/76 96 Room Air 06/03/17 23:20 97.7 60 18 132/60 96 Room Air 06/03/17 19:58 98.1 80 19 112/79 96 Room Air 06/03/17 18:04 97.3 06/03/17 16:14 97.3 79 18 154/91 95 Room Air Laboratory Tests 06/04/17 05:35: White Blood Count 5.7, Red Blood Count 4.37, Hemoglobin 14.0, Hematocrit 40.9, Mean Corpuscular Volume 94, Mean Corpuscular Hemoglobin 32.1H, Mean Corpuscular Hemoglobin Concent 34.3, Red Cell Distribution Width 12.4, Platelet Count 236, Mean Platelet Volume 6.9, Neutrophils (%) (Auto) 44.9L, Lymphocytes (%) (Auto) 40.8, Monocytes (%) (Auto) 8.7, Eosinophils (%) (Auto) 4.5H, Basophils (%) (Auto ) 1.2, Sodium Level 144, Potassium Level 4.7, Chloride Level 102, Carbon Dioxide Level 31H, Anion Gap 11, Blood Urea Nitrogen 18, Creatinine 0.8, Estimat Glomerular Filtration Rate > 60, Glucose Level 88, Calcium Level 9.1 Height (Feet): 5 Height (Inches): 6.00 Weight (Pounds): 180 General Appearance: alert EENT: normal ENT inspection Neck: normal alignment Cardiovascular: normal peripheral pulses, normal rate, regular rhythm Respiratory/Chest: chest wall non-tender, lungs clear, normal breath sounds Abdomen: normal bowel sounds, non tender, soft Extremities: normal inspection Edema: no edema noted Arm (L), no edema noted Arm (R), no edema noted Leg (L), no edema noted Leg (R), no edema noted Pedal (L), no edema noted Pedal (R), no edema noted Generalized Neurologic: responsive, motor weakness Skin: normal pigmentation, warm/dry CHRISTOPHER GREEN Jun 04, 2017 12:55
[2017-06-04] MEDS: LORazepam Inj 2mg/ml 1ml IV PRN (13:38)
--- NOTE | 2017-06-04 14:55 | Neurology Progress Note ---
Objective Physical Exam Last Vital Signs Date Time Temp Pulse Resp B/P (MAP) Pulse Ox O2 Delivery O2 Flow Rate FiO2 06/04/17 12:00 97.5 80 20 133/79 94 Room Air Laboratory Tests Test 06/04/17 05:35 White Blood Count 5.7 K/UL (4.8-10.8) Red Blood Count 4.37 M/UL (4.20-5.40) Hemoglobin 14.0 G/DL (12.0-16.0) Hematocrit 40.9 % (37.0-47.0) Mean Corpuscular Volume 94 FL (80-99) Mean Corpuscular Hemoglobin 32.1 PG (27.0-31.0) H Mean Corpuscular Hemoglobin Concent 34.3 G/DL (32.0-36.0) Red Cell Distribution Width 12.4 % (11.6-14.8) Platelet Count 236 K/UL (150-450) Mean Platelet Volume 6.9 FL (6.5-10.1) Neutrophils (%) (Auto) 44.9 % (45.0-75.0) L Lymphocytes (%) (Auto) 40.8 % (20.0-45.0) Monocytes (%) (Auto) 8.7 % (1.0-10.0) Eosinophils (%) (Auto) 4.5 % (0.0-3.0) H Basophils (%) (Auto) 1.2 % (0.0-2.0) Sodium Level 144 mEQ/L (135-145) Potassium Level 4.7 mEQ/L (3.4-4.9) Chloride Level 102 mEQ/L (98-107) Carbon Dioxide Level 31 mEQ/L (20-30) H Anion Gap 11 (5-15) Blood Urea Nitrogen 18 mg/dL (7-23) Creatinine 0.8 mg/dL (0.5-0.9) Estimat Glomerular Filtration Rate > 60 mL/min (>60) Glucose Level 88 mg/dL (74-106) Calcium Level 9.1 mg/dL (8.6-10.2) General: well developed, well nourished, no acute distress Head: normocophalic, other - periorbital ecchymosis Neck: no rigidity EENT: benign Neurologic Exam Mental Status: awake, alert, oriented x4, normal cognition Speech: normal speech, no dysarthia Language: normal language, no aphasia Cranial Nerve II: fundus normal, visual bettencourt, no papilledema Cranial Nerves III, IV, : PERRLA, EOMI, pupils Cranial Nerve V: normal facial sensations, temporales function normal, masseters function normal, pterygoids function normal Cranial Nerve VII: no facial asymmetry, normal facial expressions Cranial Nerve VIII: normal hearing, no nystagmus Cranial Nerve IX: normal palate elevation, gag response Cranial Nerve X: no voice hoarseness Cranial Nerve XI: SCM symmetric, trapezii function normal Cranial Nerve XII: tongue midline, no tongue atrophy/fasciculations Motor System: normal muscle tone, strength 5/5, no involuntary movement, no muscle wasting Sensory: normal pinprick, normal light touch, normal position sense, normal graphesthesia Coordination: normal finger to nose bilaterally, other - + romberg Deep Tendon Reflexes: 0 bicep (L), 0 bicep (R), 0 tricep (L), 0 tricep (R), 0 brachioradialis (L), 0 brachioradialis (R), 0 knee (L), 0 knee (R), 0 ankle (L) , 0 ankle (R) Reflexes: mute plantar (L), mute plantar (R) Stance: normal Gait: stable, normal regular, heel + toe gait, other - unstable Impression/Recommendations Problems: (1) dilantin toxicity (2) Unsteady gait (3) Seizures (4) Minor head injury Status: stable, progressing, tolerating diet Recommendations # [id number] d/c dilantin depakote 1000mg bid NICOLE HENDERSON Jun 04, 2017 14:55
[2017-06-04 16:00] VITALS: BP 129/76
--- NOTE | 2017-06-04 16:05 | Physician Query ---
PLEASE COMPLETE DOCUMENT BEFORE SIGNING Fidelina Butler Date: Seed C[employer]/CDS Name: [employer] / CDS Phone # Exercise your independent professional judgment when responding to query. Question asked do not imply a particular answer is desired/expected. Clinical Documentation States: "Confusion / Altered Level Of Consciousness" documented in the Assessment/Plan of Dr. Vitor Moore. Clinical Findings Show: Seizures CT SCAN= No intracranial bleed, mass or trauma. Leukocyte esterase= 3+ Urine WBC= 20-30/hpf Urine Bacteria=moderate Please indicate the nature and chronicity of the condition below: [] Metabolic Encephalopathy [] Toxic Encephalopathy [] Toxic - Metabolic Encephalopathy [] Progressive Encephalopathy [] Encephalopathy, Other [] Other: [] Not Applicable Severity [] Acute [] Chronic [] Acute on Chronic [] Unable to determine Condition Present on Admission: [] Yes [] No []Clinically Undeterminable Please also document in your Progress Notes and/or Discharge Summary and indicate if the condition was present on admission. Cody Michaels MD Date/Time YADI
--- NOTE | 2017-06-04 17:20 | Infectious Diseases Prog Note ---
Assessment/Plan Problems: (1) UTI (urinary tract infection) Assessment & Plan: due to gram negative rods, on cefepime empirically, pending urine culture (2) Minor head injury Assessment & Plan: due to facial trauma, continue neuro check, neurology is following (3) Confusion Assessment & Plan: due to the above, will continue antibiotics, neurology is following Subjective Constitutional: Reports: no symptoms HEENT: Reports: visual change, congestion Respiratory: Reports: no symptoms Cardiovascular: Reports: no symptoms Gastrointestinal/Abdominal: Reports: no symptoms Genitourinary: Reports: no symptoms Neurologic: Reports: no symptoms Psychiatric: Reports: no symptoms Skin: Reports: no symptoms Endocrine: Reports: no symptoms Hematologic: Reports: no symptoms Musculoskeletal: Reports: pain, swelling Allergies: Coded Allergies: CODEINE (Verified Allergy, Unknown, 05/10/16) Objective Vital Signs Last 24 Hour Vital Signs Date Time Temp Pulse Resp B/P (MAP) Pulse Ox O2 Delivery O2 Flow Rate FiO2 06/04/17 16:00 97.9 86 20 129/76 93 Room Air 06/04/17 12:00 97.5 80 20 133/79 94 Room Air 06/04/17 08:00 98.1 89 20 132/84 95 Room Air 06/04/17 03:57 98.1 80 19 120/76 96 Room Air 06/03/17 23:20 97.7 60 18 132/60 96 Room Air 06/03/17 19:58 98.1 80 19 112/79 96 Room Air 06/03/17 18:04 97.3 Height (Feet): 5 Height (Inches): 6.00 Weight (Pounds): 180 General Appearance: other - black eyes on both side , with bruises HEENT: normocephalic, atraumatic, anicteric, mucous membranes moist Respiratory/Chest: chest wall non-tender, lungs clear, normal breath sounds, no respiratory distress, no accessory muscle use Cardiovascular: normal peripheral pulses, normal rate, regular rhythm, no gallop/murmur, no JVD Abdomen: normal bowel sounds, soft, non tender, no organomegaly, non distended , no mass, no scars Extremities: no cyanosis, no clubbing Skin: no rash, no lesions, no ulcers Neurologic/Psychiatric: alert, oriented x 3 Microbiology Date/Time Source Procedure Growth Status 06/02/17 19:24 Nasal Nares MRSA Culture - Final NO METHICILLIN RESISTANT STAPH AUREUS... Complete 06/02/17 19:11 Urine,Clean Catch Urine Culture - Preliminary Gram Negative Bacillus 1 Resulted 06/02/17 19:24 Rectum VRE Culture - Final NO VANCOMYCIN RESISTANT ENTEROCOCCUS ... Complete Laboratory Tests Test 06/04/17 05:35 White Blood Count 5.7 K/UL (4.8-10.8) Red Blood Count 4.37 M/UL (4.20-5.40) Hemoglobin 14.0 G/DL (12.0-16.0) Hematocrit 40.9 % (37.0-47.0) Mean Corpuscular Volume 94 FL (80-99) Mean Corpuscular Hemoglobin 32.1 PG (27.0-31.0) H Mean Corpuscular Hemoglobin Concent 34.3 G/DL (32.0-36.0) Red Cell Distribution Width 12.4 % (11.6-14.8) Platelet Count 236 K/UL (150-450) Mean Platelet Volume 6.9 FL (6.5-10.1) Neutrophils (%) (Auto) 44.9 % (45.0-75.0) L Lymphocytes (%) (Auto) 40.8 % (20.0-45.0) Monocytes (%) (Auto) 8.7 % (1.0-10.0) Eosinophils (%) (Auto) 4.5 % (0.0-3.0) H Basophils (%) (Auto) 1.2 % (0.0-2.0) Sodium Level 144 mEQ/L (135-145) Potassium Level 4.7 mEQ/L (3.4-4.9) Chloride Level 102 mEQ/L (98-107) Carbon Dioxide Level 31 mEQ/L (20-30) H Anion Gap 11 (5-15) Blood Urea Nitrogen 18 mg/dL (7-23) Creatinine 0.8 mg/dL (0.5-0.9) Estimat Glomerular Filtration Rate > 60 mL/min (>60) Glucose Level 88 mg/dL (74-106) Calcium Level 9.1 mg/dL (8.6-10.2) Current Medications Medications (Trade) Dose Ordered Sig/Tho Route PRN Reason Start Time Stop Time Status Last Admin Dose Admin Acetaminophen (Tylenol) 650 mg Q4H PRN ORAL fever 06/02/17 22:30 07/02/17 22:29 Al Hydroxide/Mg Hydroxide (Mylanta II) 30 ml Q6H PRN ORAL dyspepsia 06/02/17 22:30 07/02/17 22:29 Aripiprazole (Abilify) 20 mg DAILY ORAL 06/03/17 09:00 07/03/17 08:59 06/04/17 09:36 Cefepime HCl 1 gm/ Dextrose 55 ml @ 110 mls/hr EVERY 12 HOURS IVPB 06/03/17 18:30 06/10/17 18:29 06/04/17 09:38 Dextrose (Dextrose 50%) STAT PRN IV Hypoglycemia 06/02/17 22:30 07/02/17 22:29 Divalproex Sodium (Depakote) 500 mg BEDTIME ORAL 06/03/17 21:00 07/03/17 20:59 06/03/17 21:32 Lorazepam (Ativan 2mg/ml 1ml) 0.5 mg Q4H PRN IV For Anxiety 06/02/17 22:30 06/09/17 22:29 06/04/17 13:38 Mirtazapine (Remeron) 7.5 mg BEDTIME ORAL 06/03/17 21:00 07/03/17 20:59 06/03/17 21:32 Morphine Sulfate (Morphine Sulfate) 1 mg EVERY 4 HOURS PRN IVP For Pain 06/02/17 22:30 06/09/17 22:29 06/03/17 17:34 Non-Formulary Medication (Non-Formulary Med) 1 ea DAILY ORAL 06/04/17 09:00 07/04/17 08:59 UNV Ondansetron HCl (Zofran) 4 mg Q6H PRN IVP Nausea & Vomiting 06/02/17 22:30 07/02/17 22:29 Polyethylene Glycol (Miralax) 17 gm HSPRN PRN ORAL Constipation 06/02/17 22:30 07/02/17 22:29 Trazodone HCl (Desyrel) 50 mg BEDTIME ORAL 06/03/17 21:00 07/03/17 20:59 06/03/17 21:32 Venlafaxine HCl (Effexor-XR) 150 mg BID ORAL 06/03/17 09:00 11/1/17 08:59 06/04/17 17:18 Zolpidem Tartrate (Ambien) 5 mg HSPRN PRN ORAL Insomnia 06/02/17 22:30 06/09/17 22:29 06/04/17 01:57 Rivera Shipley M.D. Jun 04, 2017 17:20
--- NOTE | 2017-06-04 18:15 | Pulmonology Progress Note ---
Assessment/Plan Problems: (1) Altered level of consciousness (2) Confusion (3) Seizures (4) Unsteady gait Assessment/Plan Dilantin was discontinued pt/ot check electrolytes f/u neuro recommendations Subjective ROS Limited/Unobtainable: No Interval Events: no new complains Allergies: Coded Allergies: CODEINE (Verified Allergy, Unknown, 05/10/16) Objective Last 24 Hour Vital Signs Date Time Temp Pulse Resp B/P (MAP) Pulse Ox O2 Delivery O2 Flow Rate FiO2 06/04/17 16:00 97.9 86 20 129/76 93 Room Air 06/04/17 12:00 97.5 80 20 133/79 94 Room Air 06/04/17 08:00 98.1 89 20 132/84 95 Room Air 06/04/17 03:57 98.1 80 19 120/76 96 Room Air 06/03/17 23:20 97.7 60 18 132/60 96 Room Air 06/03/17 19:58 98.1 80 19 112/79 96 Room Air General Appearance: WD/WN HEENT: normocephalic, atraumatic Respiratory/Chest: chest wall non-tender, lungs clear Breasts: no masses Cardiovascular: normal peripheral pulses Abdomen: normal bowel sounds, soft, non tender Genitourinary: normal external genitalia Extremities: no cyanosis Skin: no ulcers Neurologic/Psychiatric: training mgr II-XII grossly normal Microbiology Date/Time Source Procedure Growth Status 06/02/17 19:24 Nasal Nares MRSA Culture - Final NO METHICILLIN RESISTANT STAPH AUREUS... Complete 06/02/17 19:11 Urine,Clean Catch Urine Culture - Preliminary Gram Negative Bacillus 1 Resulted 06/02/17 19:24 Rectum VRE Culture - Final NO VANCOMYCIN RESISTANT ENTEROCOCCUS ... Complete Laboratory Tests 06/04/17 05:35: White Blood Count 5.7, Red Blood Count 4.37, Hemoglobin 14.0, Hematocrit 40.9, Mean Corpuscular Volume 94, Mean Corpuscular Hemoglobin 32.1H, Mean Corpuscular Hemoglobin Concent 34.3, Red Cell Distribution Width 12.4, Platelet Count 236, Mean Platelet Volume 6.9, Neutrophils (%) (Auto) 44.9L, Lymphocytes (%) (Auto) 40.8, Monocytes (%) (Auto) 8.7, Eosinophils (%) (Auto) 4.5H, Basophils (%) (Auto ) 1.2, Sodium Level 144, Potassium Level 4.7, Chloride Level 102, Carbon Dioxide Level 31H, Anion Gap 11, Blood Urea Nitrogen 18, Creatinine 0.8, Estimat Glomerular Filtration Rate > 60, Glucose Level 88, Calcium Level 9.1 Current Medications Medications (Trade) Dose Ordered Sig/Tho Route PRN Reason Start Time Stop Time Status Last Admin Dose Admin Acetaminophen (Tylenol) 650 mg Q4H PRN ORAL fever 06/02/17 22:30 07/02/17 22:29 Al Hydroxide/Mg Hydroxide (Mylanta II) 30 ml Q6H PRN ORAL dyspepsia 06/02/17 22:30 07/02/17 22:29 Aripiprazole (Abilify) 20 mg DAILY ORAL 06/03/17 09:00 07/03/17 08:59 06/04/17 09:36 Cefepime HCl 1 gm/ Dextrose 55 ml @ 110 mls/hr EVERY 12 HOURS IVPB 06/03/17 18:30 06/10/17 18:29 06/04/17 09:38 Dextrose (Dextrose 50%) STAT PRN IV Hypoglycemia 06/02/17 22:30 07/02/17 22:29 Divalproex Sodium (Depakote) 500 mg BEDTIME ORAL 06/03/17 21:00 07/03/17 20:59 06/03/17 21:32 Lorazepam (Ativan 2mg/ml 1ml) 0.5 mg Q4H PRN IV For Anxiety 06/02/17 22:30 06/09/17 22:29 06/04/17 13:38 Mirtazapine (Remeron) 7.5 mg BEDTIME ORAL 06/03/17 21:00 07/03/17 20:59 06/03/17 21:32 Morphine Sulfate (Morphine Sulfate) 1 mg EVERY 4 HOURS PRN IVP For Pain 06/02/17 22:30 06/09/17 22:29 06/03/17 17:34 Non-Formulary Medication (Non-Formulary Med) 1 ea DAILY ORAL 06/04/17 09:00 07/04/17 08:59 UNV Ondansetron HCl (Zofran) 4 mg Q6H PRN IVP Nausea & Vomiting 06/02/17 22:30 07/02/17 22:29 Polyethylene Glycol (Miralax) 17 gm HSPRN PRN ORAL Constipation 06/02/17 22:30 07/02/17 22:29 Trazodone HCl (Desyrel) 50 mg BEDTIME ORAL 06/03/17 21:00 07/03/17 20:59 06/03/17 21:32 Venlafaxine HCl (Effexor-XR) 150 mg BID ORAL 06/03/17 09:00 07/03/17 08:59 06/04/17 17:18 Zolpidem Tartrate (Ambien) 5 mg HSPRN PRN ORAL Insomnia 06/02/17 22:30 06/09/17 22:29 06/04/17 01:57 SHYAM PALENCIA Jun 04, 2017 18:15
[2017-06-04 19:41] VITALS: BP 133/84
[2017-06-04] MEDS: Morphine Sulfate 2mg/ml Inj IVP PRN (21:52)
[2017-06-04] MEDS: TraZODone 50mg tab ORAL SCH (22:25)
[2017-06-04] MEDS: Depakote 500mg tab ORAL SCH (22:26)
[2017-06-04 23:49] VITALS: BP 131/76
[2017-06-05 04:00] VITALS: BP 129/74
[2017-06-05] MEDS: Morphine Sulfate 2mg/ml Inj IVP PRN ×2 (04:43→16:56)
[2017-06-05 07:35] VITALS: BP 113/72
[2017-06-05 08:31] LABS: BASOPHILS % (AUTO) 1.2 % (0.0-2.0); LYMPHOCYTES % (AUTO) 36.3 % (20.0-45.0); MEAN CORPUSCULAR HEMOGLOBIN 32.1 PG (27.0-31.0); MEAN CORPUSCULAR HGB CONC 34.6 G/DL (32.0-36.0); MEAN CORPUSCULAR VOLUME 93 FL (80-99); MONOCYTES % (AUTO) 7.7 % (1.0-10.0); NEUTROPHILS % (AUTO) 49.8 % (45.0-75.0); PLATELET COUNT 250 K/UL (150-450); RED BLOOD COUNT 4.65 M/UL (4.20-5.40); RED CELL DISTRIBUTION WIDTH 12.2 % (11.6-14.8); WHITE BLOOD COUNT 5.8 K/UL (4.8-10.8)
[2017-06-05 08:46] LABS: ANION GAP 10 (5-15); CARBON DIOXIDE 29 mEQ/L (20-30); CHLORIDE 100 mEQ/L (98-107); CREATININE 0.8 mg/dL (0.5-0.9); GLOMERULAR FILTRATION RATE > 60 mL/min (>60); HEMOLYSIS 1; POTASSIUM 4.2 mEQ/L (3.4-4.9); SODIUM 139 mEQ/L (135-145)
[2017-06-05] MEDS: Venlafaxine XR 75mg cap ORAL SCH (09:48)
[2017-06-05] MEDS: ARIPiprazole 10mg tab ORAL SCH (09:52)
[2017-06-05 11:47] VITALS: BP 122/63
--- NOTE | 2017-06-05 13:38 | General Progress Note ---
Assessment/Plan Problem List: (1) UTI (urinary tract infection) ICD Codes: N39.0 - Urinary tract infection, site not specified SNOMED: 23608662, 861732963 (2) Weak ICD Codes: R53.1 - Weakness SNOMED: 15088008 (3) Seizures ICD Codes: R56.9 - Unspecified convulsions SNOMED: 16070414 (4) Confusion ICD Codes: R41.0 - Disorientation, unspecified SNOMED: 433659357 (5) Altered level of consciousness ICD Codes: R40.4 - Transient alteration of awareness SNOMED: 5647709 (6) Unsteady gait ICD Codes: R26.81 - Unsteadiness on feet SNOMED: 57548302, 041142236 (7) Minor head injury ICD Codes: S00.90XA - Unspecified superficial injury of unspecified part of head, initial encounter SNOMED: 064977517 Status: stable, progressing, tolerating diet Assessment/Plan ot pt diet abx dc to snf Subjective Constitutional: Reports: weakness Allergies: Coded Allergies: CODEINE (Verified Allergy, Unknown, 05/10/16) All Systems: reviewed and negative except above Subjective calm in bed no seizure Objective Last 24 Hour Vital Signs Date Time Temp Pulse Resp B/P (MAP) Pulse Ox O2 Delivery O2 Flow Rate FiO2 06/05/17 11:47 97.6 72 21 122/63 97 Room Air 06/05/17 07:35 97.6 86 20 113/72 95 Room Air 06/05/17 04:00 97.9 76 20 129/74 96 Room Air 06/04/17 23:49 98.0 80 19 131/76 96 Room Air 06/04/17 19:41 98.1 83 18 133/84 96 Room Air 06/04/17 16:00 97.9 86 20 129/76 93 Room Air Intake and Output 06/05/17 06/06/17 19:00 07:00 Intake Total 480 ml Balance 480 ml Intake Oral 480 ml # Voids 1 Laboratory Tests 06/05/17 08:10: White Blood Count 5.8, Red Blood Count 4.65, Hemoglobin 14.9, Hematocrit 43.2, Mean Corpuscular Volume 93, Mean Corpuscular Hemoglobin 32.1H, Mean Corpuscular Hemoglobin Concent 34.6, Red Cell Distribution Width 12.2, Platelet Count 250, Mean Platelet Volume 7.0, Neutrophils (%) (Auto) 49.8, Lymphocytes (%) (Auto) 36.3, Monocytes (%) (Auto) 7.7, Eosinophils (%) (Auto) 5.0H, Basophils (%) (Auto ) 1.2, Sodium Level 139, Potassium Level 4.2, Chloride Level 100, Carbon Dioxide Level 29, Anion Gap 10, Blood Urea Nitrogen 16, Creatinine 0.8, Estimat Glomerular Filtration Rate > 60, Glucose Level 133H, Calcium Level 9.0 Height (Feet): 5 Height (Inches): 6.00 Weight (Pounds): 180 General Appearance: alert EENT: normal ENT inspection Neck: normal alignment Cardiovascular: normal peripheral pulses, normal rate, regular rhythm Respiratory/Chest: chest wall non-tender, lungs clear, normal breath sounds Abdomen: normal bowel sounds, non tender, soft Extremities: normal inspection Edema: no edema noted Arm (L), no edema noted Arm (R), no edema noted Leg (L), no edema noted Leg (R), no edema noted Pedal (L), no edema noted Pedal (R), no edema noted Generalized Neurologic: responsive, motor weakness Skin: normal pigmentation, warm/dry CHRISTOPHER GREEN Jun 05, 2017 13:38
[2017-06-05] MEDS ORDERED: MIRALAX17 G2 ORAL (14:50)
[2017-06-05] MEDS ORDERED: ZOFRAN 4 MG4 MG/2 ML IV (14:51)
[2017-06-05] MEDS ORDERED: MIRTAZAPINE15 MG ORAL (14:51)
[2017-06-05] MEDS ORDERED: MORPHINE SU4 MG/1 ML IV (14:51)
[2017-06-05] MEDS ORDERED: MYLANTA30 M1 PO (14:52)
[2017-06-05] MEDS ORDERED: ATIVAN0.5 MG IV (14:52)
[2017-06-05] MEDS ORDERED: CEPHALEXIN500 MG ORAL (14:53)
[2017-06-05 16:00] VITALS: BP 137/85
--- NOTE | 2017-06-05 16:27 | Infectious Diseases Prog Note ---
Assessment/Plan Problems: (1) UTI (urinary tract infection) Assessment & Plan: due to E coli , on cefepime empirically, will switch to oral keflex for 7 days (2) Minor head injury Assessment & Plan: due to facial trauma, continue neuro check, neurology is following (3) Confusion Assessment & Plan: due to the above, will continue antibiotics, neurology is following Subjective Constitutional: Reports: no symptoms HEENT: Reports: no symptoms Respiratory: Reports: no symptoms Breasts: Reports: no symptoms Cardiovascular: Reports: no symptoms Gastrointestinal/Abdominal: Reports: no symptoms Genitourinary: Reports: no symptoms Neurologic: Reports: no symptoms Psychiatric: Reports: no symptoms Skin: Reports: no symptoms Endocrine: Reports: no symptoms Hematologic: Reports: no symptoms Allergies: Coded Allergies: CODEINE (Verified Allergy, Unknown, 05/10/16) Objective Vital Signs Last 24 Hour Vital Signs Date Time Temp Pulse Resp B/P (MAP) Pulse Ox O2 Delivery O2 Flow Rate FiO2 06/05/17 16:00 97.3 80 20 137/85 96 Room Air 06/05/17 11:47 97.6 72 21 122/63 97 Room Air 06/05/17 07:35 97.6 86 20 113/72 95 Room Air 06/05/17 04:00 97.9 76 20 129/74 96 Room Air 06/04/17 23:49 98.0 80 19 131/76 96 Room Air 06/04/17 19:41 98.1 83 18 133/84 96 Room Air Height (Feet): 5 Height (Inches): 6.00 Weight (Pounds): 180 General Appearance: WD/WN, no acute distress HEENT: normocephalic, anicteric, mucous membranes moist, PERRL, pharynx normal , supple, no JVD, other - black eyes with bruises Respiratory/Chest: chest wall non-tender, lungs clear, normal breath sounds, no respiratory distress, no accessory muscle use Cardiovascular: normal peripheral pulses, normal rate, regular rhythm, no gallop/murmur, no JVD Abdomen: normal bowel sounds, soft, non tender, no organomegaly, non distended , no mass, no scars Extremities: no cyanosis, no clubbing Skin: no rash, no lesions, no ulcers Neurologic/Psychiatric: alert, oriented x 3 Lymphatic: no neck adenopathy, no groin adenopathy Microbiology Date/Time Source Procedure Growth Status 06/02/17 19:24 Nasal Nares MRSA Culture - Final NO METHICILLIN RESISTANT STAPH AUREUS... Complete 06/02/17 19:11 Urine,Clean Catch Urine Culture - Final Escherichia Coli Complete 06/02/17 19:24 Rectum VRE Culture - Final NO VANCOMYCIN RESISTANT ENTEROCOCCUS ... Complete Laboratory Tests Test 06/05/17 08:10 White Blood Count 5.8 K/UL (4.8-10.8) Red Blood Count 4.65 M/UL (4.20-5.40) Hemoglobin 14.9 G/DL (12.0-16.0) Hematocrit 43.2 % (37.0-47.0) Mean Corpuscular Volume 93 FL (80-99) Mean Corpuscular Hemoglobin 32.1 PG (27.0-31.0) H Mean Corpuscular Hemoglobin Concent 34.6 G/DL (32.0-36.0) Red Cell Distribution Width 12.2 % (11.6-14.8) Platelet Count 250 K/UL (150-450) Mean Platelet Volume 7.0 FL (6.5-10.1) Neutrophils (%) (Auto) 49.8 % (45.0-75.0) Lymphocytes (%) (Auto) 36.3 % (20.0-45.0) Monocytes (%) (Auto) 7.7 % (1.0-10.0) Eosinophils (%) (Auto) 5.0 % (0.0-3.0) H Basophils (%) (Auto) 1.2 % (0.0-2.0) Sodium Level 139 mEQ/L (135-145) Potassium Level 4.2 mEQ/L (3.4-4.9) Chloride Level 100 mEQ/L (98-107) Carbon Dioxide Level 29 mEQ/L (20-30) Anion Gap 10 (5-15) Blood Urea Nitrogen 16 mg/dL (7-23) Creatinine 0.8 mg/dL (0.5-0.9) Estimat Glomerular Filtration Rate > 60 mL/min (>60) Glucose Level 133 mg/dL (74-106) H Calcium Level 9.0 mg/dL (8.6-10.2) Current Medications Medications (Trade) Dose Ordered Sig/Tho Route PRN Reason Start Time Stop Time Status Last Admin Dose Admin Acetaminophen (Tylenol) 650 mg Q4H PRN ORAL fever 06/02/17 22:30 07/02/17 22:29 Al Hydroxide/Mg Hydroxide (Mylanta II) 30 ml Q6H PRN ORAL dyspepsia 06/02/17 22:30 07/02/17 22:29 Aripiprazole (Abilify) 20 mg DAILY ORAL 06/03/17 09:00 07/03/17 08:59 06/05/17 09:52 Cephalexin (Keflex) 500 mg FOUR TIMES A DAY ORAL 06/05/17 18:00 06/12/17 17:59 Dextrose (Dextrose 50%) STAT PRN IV Hypoglycemia 06/02/17 22:30 07/02/17 22:29 Divalproex Sodium (Depakote) 500 mg BEDTIME ORAL 06/03/17 21:00 07/03/17 20:59 06/04/17 22:26 Lorazepam (Ativan 2mg/ml 1ml) 0.5 mg Q4H PRN IV For Anxiety 06/02/17 22:30 06/09/17 22:29 06/04/17 13:38 Methylphenidate HCl (Ritalin) 5 mg DAILY ORAL 06/05/17 09:00 06/12/17 08:59 06/05/17 09:00 Mirtazapine (Remeron) 7.5 mg BEDTIME ORAL 06/03/17 21:00 07/03/17 20:59 06/04/17 22:26 Morphine Sulfate (Morphine Sulfate) 1 mg EVERY 4 HOURS PRN IVP For Pain 06/02/17 22:30 06/09/17 22:29 06/05/17 04:43 Ondansetron HCl (Zofran) 4 mg Q6H PRN IVP Nausea & Vomiting 06/02/17 22:30 07/02/17 22:29 Polyethylene Glycol (Miralax) 17 gm HSPRN PRN ORAL Constipation 06/02/17 22:30 07/02/17 22:29 Trazodone HCl (Desyrel) 50 mg BEDTIME ORAL 06/03/17 21:00 07/03/17 20:59 06/04/17 22:25 Venlafaxine HCl (Effexor-XR) 150 mg BID ORAL 06/03/17 09:00 07/03/17 08:59 06/05/17 09:48 Zolpidem Tartrate (Ambien) 5 mg HSPRN PRN ORAL Insomnia 06/02/17 22:30 06/09/17 22:29 06/04/17 22:26 Rivera Shipley M.D. Jun 05, 2017 16:27
[2017-06-05] MEDS ORDERED: NS 275ml ONE (16:45)
[2017-06-05] MEDS ORDERED: Tubing IV Secondary IV ONE (16:45)
[2017-06-05] MEDS ORDERED: Cephalexin 500mg cap ORAL SCH (18:00)
--- NOTE | 2017-06-06 08:15 | Progress Note ---
DATE: 06/05/2017 Subjective: This is a 67-year-old female patient with and unsteady gait. Plan: Continue treatment with medication regimen to prevent depression and agitation . Jules Savage M.D. DR: LALO JOB#: [id number] CC:
--- NOTE | 2017-06-06 08:15 | Progress Note ---
DATE: 06/05/2017 Subjective: This is a 67-year-old female patient coming in for . She has altered mental status and confusion . Jules Savage M.D. DR: LALO JOB#: [id number] CC:
--- NOTE | 2017-06-06 16:02 | Discharge Summary ---
Discharge Summary Hospital Course Date of Admission Jun 02, 2017 at 22:00 Date of Discharge Jun 05, 2017 at 17:11 Admitting Diagnosis unsteady gait/minor head injury HPI Nicolasa Barton is a 67 year old female who was admitted on Jun 02, 2017 at 22: 00 for Unsteady Gait,Minor Head Injury Hospital Course [id number] Discharge Discharge Disposition Patient was discharged to [facility] Discharge Diagnoses: Nanette Odonnell NP Jun 06, 2017 16:02
--- NOTE | 2017-06-07 09:15 | Discharge Summary 2 SIG ---
DATE OF ADMISSION: 06/02/2017 DATE OF DISCHARGE: 06/05/2017 CONSULTANTS: 1. Rivera Shipley M.D. 2. Jules Savage M.D. 3. Keon Tejeda M.D. 4. Cody Michaels M.D. Brief Hospital Course: The patient is a 67-year-old female from [facility], presented to ED for weakness, unsteady gait, fall, periorbital ecchymosis, and seizure. The patient is wheelchair bound and had unsteady gait. The patient stated she was unable to stop the wheelchair and hit the left side of her head into a pole. There was no loss of consciousness. She denied falling out of the wheelchair. She has history of seizures. On evaluation at ED, head CT showed no acute intracranial bleed, mass effect, or edema with mild atrophy of the brain and nonspecific white matter hypoattenuation due to chronic small vessel disease; there was presence of left periorbital soft tissue contusion. Urine showed evidence of infection. Urine WBC was 20 to 30, urine RBC 2 to 4 with 3+ leukocyte esterase, and negative nitrite. EKG was in normal sinus rhythm. She was admitted to medical floor for evaluation of unsteady gait, weakness, and UTI. She underwent neurologic evaluation. Depakote level was 16. Dilantin 51. Depakote was increased to 500 mg nightly. She was started on cefepime for urine infection. Urine culture showed growth of E. coli. She was diagnosed to have bipolar II disorder and was continued on Abilify and Effexor was increased to 150 mg b.i.d. for maximal effect for anxiety and depression. Dilantin was discontinued. She underwent PT and OT. She was eventually discharged back to shelter. FINAL DIAGNOSES: 1. Urinary tract infection with Escherichia coli. 2. Altered level of consciousness/toxic metabolic encephalopathy. 3. Bipolar II disorder. 4. Minor head injury with facial trauma. 5. Unsteady gait. 6. Seizure disorder. DISPOSITION: The patient was discharged to [facility]. DISCHARGE MEDICATIONS: Refer to medication list. Vitor Moore, D.O. I have been assigned to dictate discharge summary on this account and I was not involved in the patient's management. Nanette Odonnell N.P. DR: Jatin JOB#: [id number] CC: YADI
== END 2017-06-05 17:11 | DRG 689 ==
LOC: EDBD 16:59 → EMR 17:40 → EDBEDREQ 21:49 → 4E 22:00
DX: N39.0 Urinary tract infection, site not specified (principal); G92 Toxic encephalopathy; G40.209 Localization-related (focal) (partial) symptomatic epilepsy and epileptic syndromes with complex partial seizures, not intractable, without status epilepticus; F31.81 Bipolar II disorder; S00.12XA Contusion of left eyelid and periocular area, initial encounter; W22.8XXA Striking against or struck by other objects, initial encounter; R26.81 Unsteadiness on feet; B96.20 Unspecified Escherichia coli [E. coli] as the cause of diseases classified elsewhere; Z88.6 Allergy status to analgesic agent; Z99.3 Dependence on wheelchair
CPT/HCPCS: 36415; 70450; 71010; 80048; 80053; 80061; 80164; 80185; 81003; 82550; 82553; 84443; 84484; 85025; 87081; 87086; 87181; 93005; 93970; 97803; 99285

== ENCOUNTER 2018-07-01 14:31 | Inpatient (IN) | payer MEDICARE, MEDICAID ==
[~2018-07-01] VITALS: Ht 160 cm; Wt 108.7 kg
[~2018-07-01 14:31] MED LIST changes: +ABILIFY20 MG ORAL; +ADULT ROBITUSS118 ML ORAL; +ATIVAN0.5 MG IV; +ATORVASTATIN CA40 MG ORAL; +CEPHALEXIN500 MG ORAL; +CLOTRIMAZOLE15 GM TOPIC; +COLACE100 MG ORAL; +DEPAKOTE250 MG PO; +DEPAKOTE500 MG PO; +DILANTIN-1125 MG/5 M PO; +DUONEB 0.5-3(2.53 ML HHN; +EFFEXOR XR75 MG ORAL; +IBUPROFEN200 MG ORAL; +IBUPROFEN600 MG ORAL; +LORAZEPAM0.5 MG ORAL; +LORAZEPAM1 MG ORAL; +MIRTAZAPINE15 MG ORAL; +MORPHINE SU4 MG/1 ML IV; +MYLANTA30 M1 PO; +NYSTOP60 GM TP; +TRAZODONE HCL50 MG ORAL; +VENLAFAXINE HCL75 MG ORAL; +ZOFRAN 4 MG4 MG/2 ML IV
--- NOTE | 2018-07-01 14:33 | Emergency Room Report ---
History of Present Illness General Chief Complaint: Multiple Trauma/Fall Source: Patient, Medical Record, EMS Present Illness HPI Patient is a 68-year-old female presented after increased fall. Patient had recent vertigo sensations. Patient had been taking Dilantin as well as Depakote. She reportedly had increased pain to her left thumb. She reported with a lot of the bed last night. The patient prior history of COPD as well as a seizure disorder.The patient brought in by BLS ambulance from care facility. Allergies: Coded Allergies: CODEINE (Verified Allergy, Unknown, 05/10/16) Patient History Past Medical History: see triage record Reviewed Nursing Documentation: PMH: Agreed; PSxH: Agreed Nursing Documentation-PMH Past Medical History: No History, Except For Hx Asthma: Yes Hx COPD: Yes Hx Cancer: No Hx Gastrointestinal Problems: No Hx Seizures: Yes Review of Systems All Other Systems: negative except mentioned in HPI Physical Exam Vital Signs Date Time Temp Pulse Resp B/P (MAP) Pulse Ox O2 Delivery O2 Flow Rate FiO2 07/01/18 14:26 82 22 142/83 93 Room Air Sp02 EP Interpretation: reviewed, normal General Appearance: normal inspection, well appearing, no apparent distress, alert, GCS 15 Head: atraumatic ENT: normal ENT inspection, hearing grossly normal, normal voice Neck: normal inspection, full range of motion, supple, no bony tend Respiratory: normal inspection, no respiratory distress, no retraction, wheezing Cardiovascular #1: regular rate, rhythm, no edema Gastrointestinal: normal inspection, normal bowel sounds, non tender, soft, no guarding, no hernia Genitourinary: no CVA tenderness Musculoskeletal: normal inspection, back normal, normal range of motion, other - thumb left hand slight erythema Neurologic: normal inspection, alert, oriented x3, responsive, speech normal Psychiatric: normal inspection, judgement/insight normal, mood/affect normal Skin: normal color, no rash Medical Decision Making Diagnostic Impression: Primary Impression: Altered level of consciousness Additional Impressions: COPD (chronic obstructive pulmonary disease) dilantin toxicity ER Course Patient presented for generalized weakness. Differential diagnosis included was not limited to Dilantin toxicity, anemia, urinary tract infection, electrolyte abnormality, hypothyroidism, myocardial infarction, myasthenia gravis, dehydration, among others. Because of complexity of patient's case laboratory testing and imaging studies were ordered. The laboratory testing was notable for elevated Dilantin level. Dr. Vitor Moore was contacted for inpatient management due to the ataxia and the patient' s increased falling. CT of head read by radiology showed no evidence of cranial hemorrhage or fracture. The left hand x-rays read by radiology showed no evidence of acute fracture. Labs Test 07/01/18 14:45 07/01/18 15:00 White Blood Count 7.9 K/UL (4.8-10.8) Red Blood Count 5.37 M/UL (4.20-5.40) Hemoglobin 16.6 G/DL (12.0-16.0) Hematocrit 48.9 % (37.0-47.0) Mean Corpuscular Volume 91 FL (80-99) Mean Corpuscular Hemoglobin 31.0 PG (27.0-31.0) Mean Corpuscular Hemoglobin Concent 34.0 G/DL (32.0-36.0) Red Cell Distribution Width 10.5 % (11.6-14.8) Platelet Count 257 K/UL (150-450) Mean Platelet Volume 6.8 FL (6.5-10.1) Neutrophils (%) (Auto) 49.0 % (45.0-75.0) Lymphocytes (%) (Auto) 40.3 % (20.0-45.0) Monocytes (%) (Auto) 7.8 % (1.0-10.0) Eosinophils (%) (Auto) 1.9 % (0.0-3.0) Basophils (%) (Auto) 1.0 % (0.0-2.0) Sodium Level 141 MMOL/L (136-145) Potassium Level 4.4 MMOL/L (3.5-5.1) Chloride Level 103 MMOL/L (98-107) Carbon Dioxide Level 34 MMOL/L (21-32) Anion Gap 5 mmol/L (5-15) Blood Urea Nitrogen 10 mg/dL (7-18) Creatinine 1.0 MG/DL (0.55-1.30) Estimat Glomerular Filtration Rate 55.5 mL/min (>60) Glucose Level 98 MG/DL (74-106) Calcium Level 9.0 MG/DL (8.5-10.1) Total Bilirubin 0.3 MG/DL (0.2-1.0) Aspartate Amino Transf (AST/SGOT) 33 U/L (15-37) Alanine Aminotransferase (ALT/SGPT) 28 U/L (12-78) Alkaline Phosphatase 83 U/L (46-116) Total Protein 7.0 G/DL (6.4-8.2) Albumin 3.1 G/DL (3.4-5.0) Globulin 3.9 g/dL Albumin/Globulin Ratio 0.8 (1.0-2.7) Thyroid Stimulating Hormone (TSH) 2.325 uiU/mL (0.358-3.740) Phenytoin (Dilantin) Level 22.7 ug/mL (10-20) Valproic Acid (Depakene) Level 54 MCG/ML (50-100) Urine Color Yellow Urine Appearance Clear Urine pH 7 (4.5-8.0) Urine Specific [place] 1.010 (1.005-1.035) Urine Protein Negative (NEGATIVE) Urine Glucose (UA) Negative (NEGATIVE) Urine Ketones Negative (NEGATIVE) Urine Blood Negative (NEGATIVE) Urine Nitrite Negative (NEGATIVE) Urine Bilirubin Negative (NEGATIVE) Urine Urobilinogen 1 MG/DL (0.0-1.0) Urine Leukocyte Esterase 1+ (NEGATIVE) Urine RBC 0-2 /HPF (0 - 2) Urine WBC 2-4 /HPF (0 - 2) Urine Squamous Epithelial Cells Few /LPF (NONE/OCC) Urine Bacteria Few /HPF (NONE) Last Vital Signs Date Time Temp Pulse Resp B/P (MAP) Pulse Ox O2 Delivery O2 Flow Rate FiO2 07/01/18 14:26 82 22 142/83 93 Room Air Status: unchanged Disposition: ADMITTED INPATIENT Condition: Stable Lauro Castillo MD Jul 01, 2018 14:33
[2018-07-01] MEDS ORDERED: Norco 5mg/325mg tab ORAL ONE (14:45)
[2018-07-01] MEDS ORDERED: Albuterol/Ipratropium 3ml neb HHN ONE (14:45)
[2018-07-01] MEDS ORDERED: REMERON15 M1 ORAL (14:47)
[2018-07-01] MEDS ORDERED: TRAZODONE HCL300 MG ORAL (14:47)
[2018-07-01] MEDS ORDERED: ADDERAL20 MG ORAL (14:47)
[2018-07-01] MEDS ORDERED: PHENYTOIN SODI300 MG PO (14:47)
[2018-07-01] MEDS ORDERED: LORAZEPAM0.5 GM MC (14:47)
[2018-07-01] MEDS ORDERED: TRAMADOL HCL100 M2 ORAL (14:47)
[2018-07-01] MEDS ORDERED: DEPAKOTE SPRIN125 M1 ORAL (14:47)
[2018-07-01 14:48] VITALS: BP 142/83
[2018-07-01 14:56] LABS: EOSINOPHILS % (AUTO) 1.9 % (0.0-3.0); HEMATOCRIT 48.9 % (37.0-47.0); HEMOGLOBIN 16.6 G/DL (12.0-16.0); LYMPHOCYTES % (AUTO) 40.3 % (20.0-45.0); MEAN CORPUSCULAR VOLUME 91 FL (80-99); MONOCYTES % (AUTO) 7.8 % (1.0-10.0); PLATELET COUNT 257 K/UL (150-450); RED BLOOD COUNT 5.37 M/UL (4.20-5.40); RED CELL DISTRIBUTION WIDTH 10.5 % (11.6-14.8); WHITE BLOOD COUNT 7.9 K/UL (4.8-10.8)
[2018-07-01 15:07] LABS: ANION GAP 5 mmol/L (5-15); BLOOD UREA NITROGEN 10 mg/dL (7-18); CARBON DIOXIDE 34 MMOL/L (21-32); CHLORIDE 103 MMOL/L (98-107); POTASSIUM 4.4 MMOL/L (3.5-5.1); SODIUM 141 MMOL/L (136-145)
[2018-07-01 15:19] LABS: ALANINE AMINOTRANSFERASE 28 U/L (12-78); ALBUMIN 3.1 G/DL (3.4-5.0); ALBUMIN/GLOBULIN RATIO 0.8 (1.0-2.7); ALKALINE PHOSPHATASE 83 U/L (46-116); ASPARTATE AMINO TRANSFERASE 33 U/L (15-37); BILIRUBIN,TOTAL 0.3 MG/DL (0.2-1.0)
[2018-07-01 15:24] LABS: APPEARANCE,URINE CLEAR; BILIRUBIN, URINE NEGATIVE (NEGATIVE); GLUCOSE, URINE (UA) NEGATIVE (NEGATIVE); KETONES,URINE NEGATIVE (NEGATIVE); LEUKOCYTE ESTERASE ,URINE 1+ (NEGATIVE); NITRITE,URINE NEGATIVE (NEGATIVE); PH,URINE 7 (4.5-8.0); PROTEIN,URINE NEGATIVE (NEGATIVE); UROBILINOGEN,URINE 1 MG/DL (0.0-1.0)
[2018-07-01 15:33] LABS: COLOR,URINE YELLOW
--- NOTE | 2018-07-01 16:19 | Diagnostic Imaging Report ---
Indication: left hand pain. Findings: 3 views of the left hand were obtained. Normal alignment is demonstrated. No acute fractures, erosions, or periosteal reaction are seen. Soft tissues are unremarkable. Impression: No acute findings.
[2018-07-01] MEDS ORDERED: Albuterol/Ipratropium 3ml neb HHN PRN (18:15)
[2018-07-01] MEDS ORDERED: Mylanta II UD 30ml ORAL PRN (18:15)
[2018-07-01] MEDS ORDERED: Morphine Sulfate 2mg/ml Inj IVP PRN (18:15)
[2018-07-01] MEDS ORDERED: Nitroglycerin Subl 0.4mg tab SL PRN (18:15)
[2018-07-01] MEDS ORDERED: Miralax 17gm pkt ORAL PRN (18:15)
[2018-07-01 18:50] VITALS: BP 117/76
--- NOTE | 2018-07-01 19:30 | Cardiology Progress Note ---
Assessment/Plan Assessment/Plan The patient is seen and examined, full consult note will be dictated. Objective Last 24 Hour Vital Signs Date Time Temp Pulse Resp B/P (MAP) Pulse Ox O2 Delivery O2 Flow Rate FiO2 07/01/18 18:50 98.6 80 20 117/76 (90) 95 07/01/18 15:15 75 20 100 Room Air 21 07/01/18 15:13 76 20 96 Room Air 21 07/01/18 15:11 76 20 Room Air 21 07/01/18 14:48 98.0 22 142/83 93 Room Air 07/01/18 14:48 82 22 Room Air 07/01/18 14:26 82 22 142/83 93 Room Air Laboratory Tests Test 07/01/18 14:45 07/01/18 15:00 White Blood Count 7.9 K/UL (4.8-10.8) Red Blood Count 5.37 M/UL (4.20-5.40) Hemoglobin 16.6 G/DL (12.0-16.0) H Hematocrit 48.9 % (37.0-47.0) H Mean Corpuscular Volume 91 FL (80-99) Mean Corpuscular Hemoglobin 31.0 PG (27.0-31.0) Mean Corpuscular Hemoglobin Concent 34.0 G/DL (32.0-36.0) Red Cell Distribution Width 10.5 % (11.6-14.8) L Platelet Count 257 K/UL (150-450) Mean Platelet Volume 6.8 FL (6.5-10.1) Neutrophils (%) (Auto) 49.0 % (45.0-75.0) Lymphocytes (%) (Auto) 40.3 % (20.0-45.0) Monocytes (%) (Auto) 7.8 % (1.0-10.0) Eosinophils (%) (Auto) 1.9 % (0.0-3.0) Basophils (%) (Auto) 1.0 % (0.0-2.0) Sodium Level 141 MMOL/L (136-145) Potassium Level 4.4 MMOL/L (3.5-5.1) Chloride Level 103 MMOL/L (98-107) Carbon Dioxide Level 34 MMOL/L (21-32) H Anion Gap 5 mmol/L (5-15) Blood Urea Nitrogen 10 mg/dL (7-18) Creatinine 1.0 MG/DL (0.55-1.30) Estimat Glomerular Filtration Rate 55.5 mL/min (>60) Glucose Level 98 MG/DL (74-106) Calcium Level 9.0 MG/DL (8.5-10.1) Total Bilirubin 0.3 MG/DL (0.2-1.0) Aspartate Amino Transf (AST/SGOT) 33 U/L (15-37) Alanine Aminotransferase (ALT/SGPT) 28 U/L (12-78) Alkaline Phosphatase 83 U/L (46-116) Total Protein 7.0 G/DL (6.4-8.2) Albumin 3.1 G/DL (3.4-5.0) L Globulin 3.9 g/dL Albumin/Globulin Ratio 0.8 (1.0-2.7) L Thyroid Stimulating Hormone (TSH) 2.325 uiU/mL (0.358-3.740) Phenytoin (Dilantin) Level 22.7 ug/mL (10-20) H Valproic Acid (Depakene) Level 54 MCG/ML (50-100) Urine Color Yellow Urine Appearance Clear Urine pH 7 (4.5-8.0) Urine Specific [place] 1.010 (1.005-1.035) Urine Protein Negative (NEGATIVE) Urine Glucose (UA) Negative (NEGATIVE) Urine Ketones Negative (NEGATIVE) Urine Blood Negative (NEGATIVE) Urine Nitrite Negative (NEGATIVE) Urine Bilirubin Negative (NEGATIVE) Urine Urobilinogen 1 MG/DL (0.0-1.0) H Urine Leukocyte Esterase 1+ (NEGATIVE) H Urine RBC 0-2 /HPF (0 - 2) Urine WBC 2-4 /HPF (0 - 2) Urine Squamous Epithelial Cells Few /LPF (NONE/OCC) Urine Bacteria Few /HPF (NONE) Tr Sapp MD Jul 01, 2018 19:30
[2018-07-01 20:00] VITALS: BP 105/65
[2018-07-01] MEDS: Depakote 125mg Sprinkles ORAL SCH (20:46)
[2018-07-01] MEDS: LORazepam Inj 2mg/ml 1ml IV PRN (20:47)
[2018-07-01] MEDS: TraZODone 50mg tab ORAL SCH (20:47)
[2018-07-01] MEDS: Heparin 5000 units/ml inj SUBQ SCH (20:48)
--- NOTE | 2018-07-01 21:15 | Consultation ---
DATE OF CONSULTATION: 07/01/2018 CARDIOLOGY CONSULTATION CONSULTING PHYSICIAN: Tr Sapp M.D. REFERRING PHYSICIAN: Vitor Moore D.O. REASON FOR CONSULTATION: Management of shortness of breath. HISTORY OF PRESENT ILLNESS: The patient is a very unfortunate 68-year-old female with underlying psychiatric disorder, history of seizures, history of COPD/asthma, who presented to the hospital after an episode of fall. Apparently, the patient had some vertigo and had unstable gait and had an incidental fall. She reportedly had increased pain to the left thumb, but resolved. She has dyspnea on exertion with her activities. Cardiology consultation was made at request of Dr. Moore for evaluation of shortness of breath. There is no report of loss of consciousness with the fall. PAST MEDICAL HISTORY: 1. Asthma/COPD. 2. Seizures. PAST SURGICAL HISTORY: None. ALLERGIES: Codeine. MEDICATIONS: List of medication at nursing facility. Abilify 20 mg p.o. daily, atorvastatin 80 mg p.o. at bedtime, Lotrimin topical one application twice daily, Adderall 20 mg tablet every other day, divalproex 750 mg twice daily, ibuprofen 400 mg at bedtime q. 8 h., lorazepam 0.5 mg q. 8 h. p.r.n. agitation, Remeron 7.5 mg p.o. at bedtime, nystatin 60 g TP twice daily 14 days, phenytoin 300 mg at bedtime, tramadol 100 mg q.8 h., trazodone 50 mg at bedtime, ____ mg p.o. daily, Ambien 5 mg p.o. at bedtime p.r.n. insomnia. SOCIAL HISTORY: Denies any tobacco, alcohol, or illicit drug use. FAMILY HISTORY: No premature coronary artery disease in first-degree relatives. REVIEW OF SYSTEMS: HEENT: Denies any headache, diplopia, or blurred vision. CONSTITUTIONAL: Denies any fever, chills, night sweats, or weight loss. CARDIOVASCULAR: Denies any chest pain. She has got dyspnea on exertion. Denies any PND, orthopnea, or leg swelling. PULMONARY: She complains of cough and shortness of breath. She attributes to her asthma. GASTROINTESTINAL: Denies any nausea, vomiting, diarrhea, constipation, abdominal pain, or GI bleed. GENITOURINARY: Denies any hematuria, dysuria, or incontinence. NEUROLOGIC: History of epilepsy, but denies any signs of lateralization or altered speech at this time. PSYCHIATRIC: Very belligerent, verbally abusive, and restless and extremely agitated. PHYSICAL EXAMINATION: VITAL SIGNS: Blood pressure was 142/83, respirations 22, pulse of 82, and O2 saturation 92% on room air. GENERAL: The patient is a very verbally abusive 68-year-old female with agitation, restlessness, and aggressiveness. HEENT: Atraumatic and normocephalic. ENT: Pupils are equal, round, and reactive to light and accommodation. Extraocular muscles intact. NECK: Short with morbid obesity. Could not assess JVP or carotid upstrokes. CARDIOVASCULAR: Normal S1, S2. Regular rate and rhythm. No murmurs, gallops, or rubs. LUNGS: Diminished breath sounds bilaterally. ABDOMEN: Soft, nontender, nondistended. No hepatosplenomegaly. Positive bowel sounds. EXTREMITIES: No evidence of edema, clubbing, or cyanosis. LABORATORY FINDINGS: Chemistry showed sodium 141, potassium is 4.4, chloride 103, bicarbonate 34, BUN 10, creatinine 1.0, glucose 98, calcium 9.0. TSH 2.32. Toxicology, phenytoin level was high at 22.7. ASSESSMENT AND PLAN: The patient is a very unfortunate 68-year-old female, seen in Cardiology consultation. 1. Dyspnea on exertion. This could be secondary to obesity hypoventilation syndrome as the patient with morbid obesity and history of COPD. We will require to have chest x-ray, also 2D echocardiography for assessment of LV systolic and diastolic function and pulmonary artery pressure. 2. Ataxia most likely due to phenytoin overdose. Level of phenytoin is elevated. Neurology consultation to address the right doses of phenytoin. 3. Agitation and aggressiveness with background psychiatric disorder. Recommend psychiatric consultation. 4. Hypertension. I would probably use a calcium channel vin. Blood pressure is persistently elevated. 5. Further therapeutic and diagnostic decision will be based on results of the echocardiography and chest x-ray. I would like to thank, Dr. Moore, for allowing me to participate in the care of this patient. Tr Sekou, M.D. DR: RADHA JOB#: [id number] CC:
[2018-07-01] MEDS ORDERED: DiphenhydrAMINE 50mg/ml Inj IM SCH (21:30)
[2018-07-01] MEDS ORDERED: LORazepam Inj 2mg/ml 1ml IM SCH (21:30)
[2018-07-01] MEDS ORDERED: Haloperidol Decanoate 50mg Inj IM SCH (21:30)
--- NOTE | 2018-07-02 03:00 | History and Physical Report ---
DATE OF ADMISSION: 07/01/2018 TIME SEEN: 3 p.m. CONSULTANTS: 1. Keon Tejeda M.D. 2. Tr Sapp M.D. 3. Haja Ayala M.D. 4. Jules Savage M.D. 5. Humberto Joiner M.D. 6. Uri Lyons M.D. CHIEF COMPLAINT: Falling, weakness, vertigo, left thumb pain, and left shoulder mass. BRIEF HISTORY: This is a 68-year-old female from [facility], presented with history of recurrent falling, possible vertigo x2. The patient came to [facility], diagnosed with the above, being admitted to telemetry. Currently, calm, slightly weak. No complaint. REVIEW OF SYSTEMS: No chest pain. No shortness of breath. No nausea, vomiting, or diarrhea. PAST MEDICAL HISTORY: Includes weakness, dizziness, possible vertigo, falling, left thumb pain, left shoulder mass, obesity, depression, COPD, and drug abuse. PAST SURGICAL HISTORY: None. MEDICATIONS: Include , albuterol, and hydrocodone. We will obtain list shortly. ALLERGIES: Codeine. SOCIAL HISTORY: Positive smoking. No alcohol. No intravenous drug abuse. FAMILY HISTORY: Noncontributory. PHYSICAL EXAMINATION: GENERAL: Slightly anxious, in bed, oriented x2, in no acute distress. VITAL SIGNS: Temperature is 98 degrees, pulse 75, respirations 20, and blood pressure 142/83. CARDIOVASCULAR: No murmur. LUNGS: Distant and clear. ABDOMEN: Bowel sounds positive. Nontender. Nondistended. EXTREMITIES: Showed no cyanosis or edema. NEUROLOGIC: The patient moves all extremities. Slightly weak. LABORATORY DATA: Laboratories at this time show hemoglobin and hematocrit of 16.9 and 48.9, otherwise CBC is normal. CO2 is 34, otherwise BMP is normal. LFT and TSH are pending. Urinalysis is pending. Urine toxicology is pending as well. ASSESSMENT: 1. Falling. 2. Vertigo. 3. Weakness. 4. Left thumb pain. 5. Left shoulder mass. 6. Dizziness. 7. Obesity. 8. Depression. 9. COPD. 10. Drug abuse history. PLAN: 1. Continue previous medications. 2. OT, PT, and dietary evaluation. 3. CBC and BMP in the morning. 4. Pain control. 5. We will continue to follow this patient. 6. Check labs if become available. Vitor Moore D.O. DR: ESTHELA JOB#: [id number] CC:
[2018-07-02 04:00] VITALS: BP 127/65
[2018-07-02 06:44] LABS: BASOPHILS % (AUTO) 1.2 % (0.0-2.0); EOSINOPHILS % (AUTO) 3.3 % (0.0-3.0); HEMATOCRIT 44.8 % (37.0-47.0); HEMOGLOBIN 15.6 G/DL (12.0-16.0); LYMPHOCYTES % (AUTO) 39.2 % (20.0-45.0); MEAN CORPUSCULAR VOLUME 91 FL (80-99); MONOCYTES % (AUTO) 9.8 % (1.0-10.0); NEUTROPHILS % (AUTO) 46.5 % (45.0-75.0); PLATELET COUNT 223 K/UL (150-450); RED BLOOD COUNT 4.91 M/UL (4.20-5.40); RED CELL DISTRIBUTION WIDTH 10.7 % (11.6-14.8); WHITE BLOOD COUNT 5.9 K/UL (4.8-10.8)
[2018-07-02 07:09] LABS: ALANINE AMINOTRANSFERASE 29 U/L (12-78); ALBUMIN 2.9 G/DL (3.4-5.0); ALBUMIN/GLOBULIN RATIO 0.8 (1.0-2.7); ALKALINE PHOSPHATASE 77 U/L (46-116); ANION GAP 6 mmol/L (5-15); ASPARTATE AMINO TRANSFERASE 28 U/L (15-37); BILIRUBIN,TOTAL 0.3 MG/DL (0.2-1.0); BLOOD UREA NITROGEN 13 mg/dL (7-18); CALCIUM 8.5 MG/DL (8.5-10.1); CARBON DIOXIDE 31 MMOL/L (21-32); CHLORIDE 107 MMOL/L (98-107); CHOLESTEROL 161 MG/DL (< 200); CREATININE 0.9 MG/DL (0.55-1.30); HDL CHOLESTEROL 56 MG/DL (40-60); POTASSIUM 3.9 MMOL/L (3.5-5.1); SODIUM 144 MMOL/L (136-145); TRIGLYCERIDES 169 MG/DL (30-150)
[2018-07-02 08:00] VITALS: BP_SYST 122; BP_DIAS 7; BP_DIAS 77
[2018-07-02] MEDS: Heparin 5000 units/ml inj SUBQ SCH ×2 (08:45→20:29)
[2018-07-02] MEDS: ARIPiprazole 10mg tab ORAL SCH (08:46)
[2018-07-02] MEDS: Venlafaxine 25mg tab ORAL SCH (08:46)
[2018-07-02] MEDS: Depakote 125mg Sprinkles ORAL SCH ×2 (08:53→20:28)
--- NOTE | 2018-07-02 10:06 | Consultation ---
History of Present Illness General Date patient seen: Jul 02, 2018 Chief Complaint: Multiple Trauma/Fall Present Illness HPI 68-year-old female with hx of COPD, Obesity, psychiatric disorder and seizures presented to ER with CC of recurrent fall. Patient had recent vertigo sensations. Patient had been taking Dilantin as well as Depakote. She had toxic Dilantin level and admitted to telemetry for further work up. Allergies: Coded Allergies: CODEINE (Verified Allergy, Unknown, 05/10/16) Medication History Scheduled Aripiprazole* (Abilify*), 20 MG ORAL DAILY, (Reported) Atorvastatin Calcium* (Atorvastatin Calcium*), 80 MG ORAL DAILY, (Reported) Clotrimazole* (Lotrimin*), 1 APPLIC TOPIC TWICE A DAY Dextroamphetamine/Amphetamine (Adderall 20 mg Tablet), 30 MG ORAL EVERY OTHER DAY, (Reported) Divalproex Sodium (Divalproex Sodium), 750 MG ORAL BID, (Reported) Lorazepam (Lorazepam), 0.5 MG MC Q8HR, (Reported) Mirtazapine (Remeron), 7.5 MG ORAL BEDTIME, (Reported) Mirtazapine* (Remeron*), 7.5 MG ORAL BEDTIME, (Reported) Nystatin (Nystop), 60 GM TP BID Phenytoin Sodium Extended (Phenytoin Sodium Extended), 300 MG PO HS, (Reported) Tramadol Hcl (Tramadol Hcl), 100 MG ORAL Q8HR, (Reported) Trazodone Hcl (Trazodone Hcl), 50 MG ORAL BEDTIME, (Reported) Trazodone Hcl* (Desyrel*), 50 MG ORAL BEDTIME, (Reported) Venlafaxine Hcl* (Venlafaxine Hcl*), 100 MG ORAL DAILY, (Reported) Scheduled PRN Divalproex Sodium* (Depakote*), 750 MG PO BID PRN for seizures, (Reported) Ibuprofen (Ibuprofen*), 400 MG ORAL Q8H PRN for For Pain, (Reported) Lorazepam* (Lorazepam*), 0.5 MG ORAL EVERY 8 HOURS PRN for prn, (Reported) Zolpidem Tartrate (Ambien), 5 MG PO NEEDED PRN for Insomnia, (Reported) Patient History Healthcare decision maker N Resuscitation status Full Code Advanced Directive on File No Past Medical/Surgical History Past Medical/Surgical History: (1) COPD (chronic obstructive pulmonary disease) (2) Seizures (3) Bipolar 1 disorder (4) Psychosis (5) Schizophrenia Review of Systems All Other Systems: negative except mentioned in HPI Physical Exam General Appearance: WD/WN Lines, tubes and drains: peripheral HEENT: normocephalic, atraumatic Neck: non-tender, normal alignment Respiratory/Chest: chest wall non-tender, lungs clear Breasts: no masses Cardiovascular/Chest: normal peripheral pulses Abdomen: normal bowel sounds, non tender Genitourinary/Rectal: normal genital exam, normal rectal exam Extremities: normal range of motion, non-tender Neurologic: rn psych II-XII grossly normal Last 24 Hour Vital Signs Date Time Temp Pulse Resp B/P (MAP) Pulse Ox O2 Delivery O2 Flow Rate FiO2 07/02/18 08:00 97.6 83 22 122/7 (45) 93 07/02/18 08:00 Room Air 07/02/18 07:45 81 07/02/18 04:00 98.6 86 20 127/65 (85) 95 07/02/18 04:00 86 07/02/18 00:00 82 07/01/18 21:01 Room Air 07/01/18 20:00 82 07/01/18 20:00 98.5 82 20 105/65 (78) 95 07/01/18 20:00 82 20 Room Air 21 07/01/18 18:50 98.6 80 20 117/76 (90) 95 07/01/18 15:15 75 20 100 Room Air 21 07/01/18 15:13 76 20 96 Room Air 21 07/01/18 15:11 76 20 Room Air 21 07/01/18 14:48 98.0 22 142/83 93 Room Air 07/01/18 14:48 82 22 Room Air 07/01/18 14:26 82 22 142/83 93 Room Air Intake and Output 07/01/18 07/02/18 19:00 07:00 Intake Total 240 ml Balance 240 ml Intake Oral 240 ml # Voids 4 Laboratory Tests Test 07/01/18 14:45 07/01/18 15:00 07/02/18 05:20 White Blood Count 7.9 K/UL (4.8-10.8) 5.9 K/UL (4.8-10.8) Red Blood Count 5.37 M/UL (4.20-5.40) 4.91 M/UL (4.20-5.40) Hemoglobin 16.6 G/DL (12.0-16.0) H 15.6 G/DL (12.0-16.0) Hematocrit 48.9 % (37.0-47.0) H 44.8 % (37.0-47.0) Mean Corpuscular Volume 91 FL (80-99) 91 FL (80-99) Mean Corpuscular Hemoglobin 31.0 PG (27.0-31.0) 31.7 PG (27.0-31.0) H Mean Corpuscular Hemoglobin Concent 34.0 G/DL (32.0-36.0) 34.8 G/DL (32.0-36.0) Red Cell Distribution Width 10.5 % (11.6-14.8) L 10.7 % (11.6-14.8) L Platelet Count 257 K/UL (150-450) 223 K/UL (150-450) Mean Platelet Volume 6.8 FL (6.5-10.1) 6.8 FL (6.5-10.1) Neutrophils (%) (Auto) 49.0 % (45.0-75.0) 46.5 % (45.0-75.0) Lymphocytes (%) (Auto) 40.3 % (20.0-45.0) 39.2 % (20.0-45.0) Monocytes (%) (Auto) 7.8 % (1.0-10.0) 9.8 % (1.0-10.0) Eosinophils (%) (Auto) 1.9 % (0.0-3.0) 3.3 % (0.0-3.0) H Basophils (%) (Auto) 1.0 % (0.0-2.0) 1.2 % (0.0-2.0) Sodium Level 141 MMOL/L (136-145) 144 MMOL/L (136-145) Potassium Level 4.4 MMOL/L (3.5-5.1) 3.9 MMOL/L (3.5-5.1) Chloride Level 103 MMOL/L (98-107) 107 MMOL/L (98-107) Carbon Dioxide Level 34 MMOL/L (21-32) H 31 MMOL/L (21-32) Anion Gap 5 mmol/L (5-15) 6 mmol/L (5-15) Blood Urea Nitrogen 10 mg/dL (7-18) 13 mg/dL (7-18) Creatinine 1.0 MG/DL (0.55-1.30) 0.9 MG/DL (0.55-1.30) Estimat Glomerular Filtration Rate 55.5 mL/min (>60) > 60 mL/min (>60) Glucose Level 98 MG/DL (74-106) 103 MG/DL (74-106) Calcium Level 9.0 MG/DL (8.5-10.1) 8.5 MG/DL (8.5-10.1) Total Bilirubin 0.3 MG/DL (0.2-1.0) 0.3 MG/DL (0.2-1.0) Aspartate Amino Transf (AST/SGOT) 33 U/L (15-37) 28 U/L (15-37) Alanine Aminotransferase (ALT/SGPT) 28 U/L (12-78) 29 U/L (12-78) Alkaline Phosphatase 83 U/L (46-116) 77 U/L (46-116) Total Protein 7.0 G/DL (6.4-8.2) 6.5 G/DL (6.4-8.2) Albumin 3.1 G/DL (3.4-5.0) L 2.9 G/DL (3.4-5.0) L Globulin 3.9 g/dL 3.6 g/dL Albumin/Globulin Ratio 0.8 (1.0-2.7) L 0.8 (1.0-2.7) L Thyroid Stimulating Hormone (TSH) 2.325 uiU/mL (0.358-3.740) 1.660 uiU/mL (0.358-3.740) Phenytoin (Dilantin) Level 22.7 ug/mL (10-20) H Valproic Acid (Depakene) Level 54 MCG/ML (50-100) Urine Color Yellow Urine Appearance Clear Urine pH 7 (4.5-8.0) Urine Specific [place] 1.010 (1.005-1.035) Urine Protein Negative (NEGATIVE) Urine Glucose (UA) Negative (NEGATIVE) Urine Ketones Negative (NEGATIVE) Urine Blood Negative (NEGATIVE) Urine Nitrite Negative (NEGATIVE) Urine Bilirubin Negative (NEGATIVE) Urine Urobilinogen 1 MG/DL (0.0-1.0) H Urine Leukocyte Esterase 1+ (NEGATIVE) H Urine RBC 0-2 /HPF (0 - 2) Urine WBC 2-4 /HPF (0 - 2) Urine Squamous Epithelial Cells Few /LPF (NONE/OCC) Urine Bacteria Few /HPF (NONE) Prothrombin Time 10.9 SEC (9.30-11.50) Prothromb Time International Ratio 1.0 (0.9-1.1) Activated Partial Thromboplast Time 28 SEC (23-33) Triglycerides Level 169 MG/DL (30-150) H Cholesterol Level 161 MG/DL (< 200) LDL Cholesterol 70 mg/dL (<100) HDL Cholesterol 56 MG/DL (40-60) Cholesterol/HDL Ratio 2.9 (3.3-4.4) L Height (Feet): 5 Height (Inches): 3.00 Weight (Pounds): 239 Medications Current Medications Medications (Trade) Dose Ordered Sig/Tho Route PRN Reason Start Time Stop Time Status Last Admin Dose Admin Acetaminophen (Tylenol) 650 mg Q4H PRN ORAL fever 07/01/18 18:15 07/31/18 18:14 Al Hydroxide/Mg Hydroxide (Mylanta II) 30 ml Q6H PRN ORAL dyspepsia 07/01/18 18:15 07/31/18 18:14 Albuterol/ Ipratropium (Albuterol/ Ipratropium) 3 ml Q4H PRN HHN Shortness of Breath 07/01/18 18:15 07/06/18 18:14 Aripiprazole (Abilify) 20 mg DAILY ORAL 07/02/18 09:00 08/01/18 08:59 07/02/18 08:46 Clonidine HCl (Catapres Tab) 0.1 mg Q4H PRN ORAL For High Blood Pressure 07/01/18 18:15 07/31/18 18:14 Dextrose (Dextrose 50%) 25 ml Q30M PRN IV Hypoglycemia 07/01/18 18:15 07/31/18 18:14 Dextrose (Dextrose 50%) 50 ml Q30M PRN IV Hypoglycemia 07/01/18 18:15 07/31/18 18:14 Divalproex Sodium (Depakote Sprinkles) 750 mg Q12HR ORAL 07/01/18 21:00 07/31/18 20:59 07/02/18 08:53 Heparin Sodium (Porcine) (Heparin 5000 units/ml) 5,000 units EVERY 12 HOURS SUBQ 07/01/18 21:00 07/31/18 20:59 07/02/18 08:45 Lorazepam (Ativan 2mg/ml 1ml) 0.5 mg Q4H PRN IV For Anxiety 07/01/18 18:15 07/08/18 18:14 07/01/18 20:47 Mirtazapine (Remeron) 7.5 mg BEDTIME ORAL 07/01/18 21:00 07/31/18 20:59 07/01/18 20:47 Morphine Sulfate (Morphine Sulfate) 1 mg Q4H PRN IVP For Pain 7-07/01/18 18:15 07/08/18 18:14 Nitroglycerin (Ntg) 0.4 mg Q5M X 3 DOSES PRN SL Prn Chest Pain 07/01/18 18:15 07/31/18 18:14 Ondansetron HCl (Zofran) 4 mg Q6H PRN IVP Nausea & Vomiting 07/01/18 18:15 07/31/18 18:14 Polyethylene Glycol (Miralax) 17 gm HSPRN PRN ORAL Constipation 07/01/18 18:15 07/31/18 18:14 Temazepam (Restoril) 15 mg HSPRN PRN ORAL Insomnia 07/01/18 18:15 07/08/18 18:14 Trazodone HCl (Desyrel) 50 mg BEDTIME ORAL 07/01/18 21:00 07/31/18 20:59 07/01/18 20:47 Venlafaxine HCl (Effexor) 100 mg DAILY ORAL 07/02/18 09:00 08/01/18 08:59 07/02/18 08:46 Assessment/Plan Problem List: (1) Acute encephalopathy ICD Codes: G93.40 - Encephalopathy, unspecified SNOMED: 22701846, 446841170 (2) Schizophrenia ICD Codes: F20.9 - Schizophrenia, unspecified SNOMED: 67995298 (3) Paranoid disorder ICD Codes: F22 - Delusional disorders SNOMED: 204283516 (4) COPD (chronic obstructive pulmonary disease) ICD Codes: J44.9 - Chronic obstructive pulmonary disease, unspecified SNOMED: 71144715 (5) dilantin toxicity Assessment/Plan telemetry monitoring hold Dilantin cardio evaluation symptomatic treatment psych evaluation Keon Tejeda MD Jul 02, 2018 10:06
[2018-07-02 11:58] VITALS: BP 136/89
--- NOTE | 2018-07-02 12:48 | Consultation ---
History of Present Illness General Chief Complaint: Multiple Trauma/Fall Present Illness HPI 68-year-old female with complex medical and psych history such as COPD, obesity , psychiatric disorder and seizures presented to ER with complaints of recurrent falls. States has been dizzy and fell backwards with trauma to back shoulder, and hand. Admitted for care and management. Surgery called to evaluate given trauma. noted to have large bruise on back. c/o left shoulder pain and hand pain. Allergies: Coded Allergies: CODEINE (Verified Allergy, Unknown, 05/10/16) Medication History Scheduled Aripiprazole* (Abilify*), 20 MG ORAL DAILY, (Reported) Atorvastatin Calcium* (Atorvastatin Calcium*), 80 MG ORAL DAILY, (Reported) Clotrimazole* (Lotrimin*), 1 APPLIC TOPIC TWICE A DAY Dextroamphetamine/Amphetamine (Adderall 20 mg Tablet), 30 MG ORAL EVERY OTHER DAY, (Reported) Divalproex Sodium (Divalproex Sodium), 750 MG ORAL BID, (Reported) Lorazepam (Lorazepam), 0.5 MG MC Q8HR, (Reported) Mirtazapine (Remeron), 7.5 MG ORAL BEDTIME, (Reported) Mirtazapine* (Remeron*), 7.5 MG ORAL BEDTIME, (Reported) Nystatin (Nystop), 60 GM TP BID Phenytoin Sodium Extended (Phenytoin Sodium Extended), 300 MG PO HS, (Reported) Tramadol Hcl (Tramadol Hcl), 100 MG ORAL Q8HR, (Reported) Trazodone Hcl (Trazodone Hcl), 50 MG ORAL BEDTIME, (Reported) Trazodone Hcl* (Desyrel*), 50 MG ORAL BEDTIME, (Reported) Venlafaxine Hcl* (Venlafaxine Hcl*), 100 MG ORAL DAILY, (Reported) Scheduled PRN Divalproex Sodium* (Depakote*), 750 MG PO BID PRN for seizures, (Reported) Ibuprofen (Ibuprofen*), 400 MG ORAL Q8H PRN for For Pain, (Reported) Lorazepam* (Lorazepam*), 0.5 MG ORAL EVERY 8 HOURS PRN for prn, (Reported) Zolpidem Tartrate (Ambien), 5 MG PO NEEDED PRN for Insomnia, (Reported) Patient History History Provided By: Patient, Medical Record, PMD Healthcare decision maker N Resuscitation status Full Code Advanced Directive on File No Past Medical/Surgical History Past Medical/Surgical History: (1) Acute encephalopathy (2) Drug abuse (3) dilantin toxicity (4) Psychosis (5) Bipolar 1 disorder (6) Cellulitis (7) Seizures (8) COPD (chronic obstructive pulmonary disease) (9) Paranoid disorder (10) Schizophrenia Review of Systems All Other Systems: negative except mentioned in HPI Physical Exam General Appearance: no apparent distress, alert Lines, tubes and drains: peripheral HEENT: mucous membranes moist Neck: normal inspection Respiratory/Chest: normal breath sounds, no respiratory distress, no accessory muscle use Cardiovascular/Chest: normal rate Abdomen: normal bowel sounds, non tender, soft, no organomegaly, no mass Extremities: other - soft, range of motion normal passive and actively. skin lesion noted to left upper arm. no trauma on upper extremity around area of pain. no hematoma. no infection Skin Exam: warm/dry, other Neurologic: alert, responsive Last 24 Hour Vital Signs Date Time Temp Pulse Resp B/P (MAP) Pulse Ox O2 Delivery O2 Flow Rate FiO2 07/02/18 11:58 98.4 76 21 136/89 (105) 99 07/02/18 11:39 76 07/02/18 08:00 97.6 83 22 122/77 (92) 07/02/18 08:00 Room Air 07/02/18 07:45 81 07/02/18 04:00 98.6 86 20 127/65 (85) 95 07/02/18 04:00 86 07/02/18 00:00 82 07/01/18 21:01 Room Air 07/01/18 20:00 82 07/01/18 20:00 98.5 82 20 105/65 (78) 95 07/01/18 20:00 82 20 Room Air 21 07/01/18 18:50 98.6 80 20 117/76 (90) 95 07/01/18 15:15 75 20 100 Room Air 21 07/01/18 15:13 76 20 96 Room Air 21 07/01/18 15:11 76 20 Room Air 21 07/01/18 14:48 98.0 22 142/83 93 Room Air 07/01/18 14:48 82 22 Room Air 07/01/18 14:26 82 22 142/83 93 Room Air Intake and Output 07/01/18 07/02/18 19:00 07:00 Intake Total 240 ml Balance 240 ml Intake Oral 240 ml # Voids 4 Laboratory Tests Test 07/01/18 14:45 07/01/18 15:00 07/02/18 05:20 White Blood Count 7.9 K/UL (4.8-10.8) 5.9 K/UL (4.8-10.8) Red Blood Count 5.37 M/UL (4.20-5.40) 4.91 M/UL (4.20-5.40) Hemoglobin 16.6 G/DL (12.0-16.0) H 15.6 G/DL (12.0-16.0) Hematocrit 48.9 % (37.0-47.0) H 44.8 % (37.0-47.0) Mean Corpuscular Volume 91 FL (80-99) 91 FL (80-99) Mean Corpuscular Hemoglobin 31.0 PG (27.0-31.0) 31.7 PG (27.0-31.0) H Mean Corpuscular Hemoglobin Concent 34.0 G/DL (32.0-36.0) 34.8 G/DL (32.0-36.0) Red Cell Distribution Width 10.5 % (11.6-14.8) L 10.7 % (11.6-14.8) L Platelet Count 257 K/UL (150-450) 223 K/UL (150-450) Mean Platelet Volume 6.8 FL (6.5-10.1) 6.8 FL (6.5-10.1) Neutrophils (%) (Auto) 49.0 % (45.0-75.0) 46.5 % (45.0-75.0) Lymphocytes (%) (Auto) 40.3 % (20.0-45.0) 39.2 % (20.0-45.0) Monocytes (%) (Auto) 7.8 % (1.0-10.0) 9.8 % (1.0-10.0) Eosinophils (%) (Auto) 1.9 % (0.0-3.0) 3.3 % (0.0-3.0) H Basophils (%) (Auto) 1.0 % (0.0-2.0) 1.2 % (0.0-2.0) Sodium Level 141 MMOL/L (136-145) 144 MMOL/L (136-145) Potassium Level 4.4 MMOL/L (3.5-5.1) 3.9 MMOL/L (3.5-5.1) Chloride Level 103 MMOL/L (98-107) 107 MMOL/L (98-107) Carbon Dioxide Level 34 MMOL/L (21-32) H 31 MMOL/L (21-32) Anion Gap 5 mmol/L (5-15) 6 mmol/L (5-15) Blood Urea Nitrogen 10 mg/dL (7-18) 13 mg/dL (7-18) Creatinine 1.0 MG/DL (0.55-1.30) 0.9 MG/DL (0.55-1.30) Estimat Glomerular Filtration Rate 55.5 mL/min (>60) > 60 mL/min (>60) Glucose Level 98 MG/DL (74-106) 103 MG/DL (74-106) Calcium Level 9.0 MG/DL (8.5-10.1) 8.5 MG/DL (8.5-10.1) Total Bilirubin 0.3 MG/DL (0.2-1.0) 0.3 MG/DL (0.2-1.0) Aspartate Amino Transf (AST/SGOT) 33 U/L (15-37) 28 U/L (15-37) Alanine Aminotransferase (ALT/SGPT) 28 U/L (12-78) 29 U/L (12-78) Alkaline Phosphatase 83 U/L (46-116) 77 U/L (46-116) Total Protein 7.0 G/DL (6.4-8.2) 6.5 G/DL (6.4-8.2) Albumin 3.1 G/DL (3.4-5.0) L 2.9 G/DL (3.4-5.0) L Globulin 3.9 g/dL 3.6 g/dL Albumin/Globulin Ratio 0.8 (1.0-2.7) L 0.8 (1.0-2.7) L Thyroid Stimulating Hormone (TSH) 2.325 uiU/mL (0.358-3.740) 1.660 uiU/mL (0.358-3.740) Phenytoin (Dilantin) Level 22.7 ug/mL (10-20) H Valproic Acid (Depakene) Level 54 MCG/ML (50-100) Urine Color Yellow Urine Appearance Clear Urine pH 7 (4.5-8.0) Urine Specific [place] 1.010 (1.005-1.035) Urine Protein Negative (NEGATIVE) Urine Glucose (UA) Negative (NEGATIVE) Urine Ketones Negative (NEGATIVE) Urine Blood Negative (NEGATIVE) Urine Nitrite Negative (NEGATIVE) Urine Bilirubin Negative (NEGATIVE) Urine Urobilinogen 1 MG/DL (0.0-1.0) H Urine Leukocyte Esterase 1+ (NEGATIVE) H Urine RBC 0-2 /HPF (0 - 2) Urine WBC 2-4 /HPF (0 - 2) Urine Squamous Epithelial Cells Few /LPF (NONE/OCC) Urine Bacteria Few /HPF (NONE) Prothrombin Time 10.9 SEC (9.30-11.50) Prothromb Time International Ratio 1.0 (0.9-1.1) Activated Partial Thromboplast Time 28 SEC (23-33) Triglycerides Level 169 MG/DL (30-150) H Cholesterol Level 161 MG/DL (< 200) LDL Cholesterol 70 mg/dL (<100) HDL Cholesterol 56 MG/DL (40-60) Cholesterol/HDL Ratio 2.9 (3.3-4.4) L Height (Feet): 5 Height (Inches): 3.00 Weight (Pounds): 239 Medications Current Medications Medications (Trade) Dose Ordered Sig/Tho Route PRN Reason Start Time Stop Time Status Last Admin Dose Admin Acetaminophen (Tylenol) 650 mg Q4H PRN ORAL fever 07/01/18 18:15 07/31/18 18:14 Al Hydroxide/Mg Hydroxide (Mylanta II) 30 ml Q6H PRN ORAL dyspepsia 07/01/18 18:15 07/31/18 18:14 Albuterol/ Ipratropium (Albuterol/ Ipratropium) 3 ml Q4H PRN HHN Shortness of Breath 07/01/18 18:15 07/06/18 18:14 Aripiprazole (Abilify) 20 mg DAILY ORAL 07/02/18 09:00 08/01/18 08:59 07/02/18 08:46 Clonidine HCl (Catapres Tab) 0.1 mg Q4H PRN ORAL For High Blood Pressure 07/01/18 18:15 07/31/18 18:14 Dextrose (Dextrose 50%) 25 ml Q30M PRN IV Hypoglycemia 07/01/18 18:15 07/31/18 18:14 Dextrose (Dextrose 50%) 50 ml Q30M PRN IV Hypoglycemia 07/01/18 18:15 07/31/18 18:14 Divalproex Sodium (Depakote Sprinkles) 750 mg Q12HR ORAL 07/01/18 21:00 07/31/18 20:59 07/02/18 08:53 Heparin Sodium (Porcine) (Heparin 5000 units/ml) 5,000 units EVERY 12 HOURS SUBQ 07/01/18 21:00 07/31/18 20:59 07/02/18 08:45 Lorazepam (Ativan 2mg/ml 1ml) 0.5 mg Q4H PRN IV For Anxiety 07/01/18 18:15 07/08/18 18:14 07/01/18 20:47 Mirtazapine (Remeron) 7.5 mg BEDTIME ORAL 07/01/18 21:00 07/31/18 20:59 07/01/18 20:47 Morphine Sulfate (Morphine Sulfate) 1 mg Q4H PRN IVP For Pain 7-10 07/01/18 18:15 07/08/18 18:14 Nitroglycerin (Ntg) 0.4 mg Q5M X 3 DOSES PRN SL Prn Chest Pain 07/01/18 18:15 07/31/18 18:14 Ondansetron HCl (Zofran) 4 mg Q6H PRN IVP Nausea & Vomiting 07/01/18 18:15 07/31/18 18:14 Polyethylene Glycol (Miralax) 17 gm HSPRN PRN ORAL Constipation 07/01/18 18:15 07/31/18 18:14 Temazepam (Restoril) 15 mg HSPRN PRN ORAL Insomnia 07/01/18 18:15 07/08/18 18:14 Trazodone HCl (Desyrel) 50 mg BEDTIME ORAL 07/01/18 21:00 07/31/18 20:59 07/01/18 20:47 Venlafaxine HCl (Effexor) 100 mg DAILY ORAL 07/02/18 09:00 08/01/18 08:59 07/02/18 08:46 Assessment/Plan Problem List: (1) Trauma Assessment & Plan: s/p fall left upper arm pain. range of motion nml. exam benign. likely muscle ache from falling left mid back/flank bruise, subcutaneous fat injury stable. no acute surgical or trauma treatment indicated psych as per team thank you ICD Codes: T14.90XA - Injury, unspecified, initial encounter SNOMED: 988588955 (2) Psychosis ICD Codes: F29 - Unspecified psychosis not due to a substance or known physiological condition SNOMED: 88992582 (3) Cellulitis ICD Codes: L03.90 - Cellulitis, unspecified SNOMED: 325230080 Status: stable EloyUri Jul 02, 2018 12:48
--- NOTE | 2018-07-02 13:33 | General Progress Note ---
Assessment/Plan Problem List: (1) Falling ICD Codes: R29.6 - Repeated falls SNOMED: 741750225 (2) Weak ICD Codes: R53.1 - Weakness SNOMED: 34294386 (3) Vertigo ICD Codes: R42 - Dizziness and giddiness SNOMED: 305448571 (4) Acute encephalopathy ICD Codes: G93.40 - Encephalopathy, unspecified SNOMED: 95532201, 795796317 (5) Psychosis ICD Codes: F29 - Unspecified psychosis not due to a substance or known physiological condition SNOMED: 47344938 (6) Bipolar 1 disorder ICD Codes: F31.9 - Bipolar disorder, unspecified SNOMED: 038948840 (7) COPD (chronic obstructive pulmonary disease) ICD Codes: J44.9 - Chronic obstructive pulmonary disease, unspecified SNOMED: 00405756 (8) Schizophrenia ICD Codes: F20.9 - Schizophrenia, unspecified SNOMED: 02008430 (9) Paranoid disorder ICD Codes: F22 - Delusional disorders SNOMED: 274290809 (10) dilantin toxicity Status: unchanged Assessment/Plan ot pt diet ivf abx cbc bmp am psyc transfer Subjective Constitutional: Reports: weakness Allergies: Coded Allergies: CODEINE (Verified Allergy, Unknown, 05/10/16) All Systems: reviewed and negative except above Subjective sleepy calm Objective Last 24 Hour Vital Signs Date Time Temp Pulse Resp B/P (MAP) Pulse Ox O2 Delivery O2 Flow Rate FiO2 07/02/18 11:58 98.4 76 21 136/89 (105) 99 07/02/18 11:39 76 07/02/18 08:00 97.6 83 22 122/77 (92) 07/02/18 08:00 Room Air 07/02/18 07:45 81 07/02/18 04:00 98.6 86 20 127/65 (85) 95 07/02/18 04:00 86 07/02/18 00:00 82 07/01/18 21:01 Room Air 07/01/18 20:00 82 07/01/18 20:00 98.5 82 20 105/65 (78) 95 07/01/18 20:00 82 20 Room Air 21 07/01/18 18:50 98.6 80 20 117/76 (90) 95 07/01/18 15:15 75 20 100 Room Air 21 10/30/18 15:13 76 20 96 Room Air 21 07/01/18 15:11 76 20 Room Air 21 07/01/18 14:48 98.0 22 142/83 93 Room Air 07/01/18 14:48 82 22 Room Air 07/01/18 14:26 82 22 142/83 93 Room Air Intake and Output 07/01/18 07/02/18 19:00 07:00 Intake Total 240 ml Balance 240 ml Intake Oral 240 ml # Voids 4 Laboratory Tests 07/01/18 14:45: White Blood Count 7.9, Red Blood Count 5.37, Hemoglobin 16.6H, Hematocrit 48.9H , Mean Corpuscular Volume 91, Mean Corpuscular Hemoglobin 31.0, Mean Corpuscular Hemoglobin Concent 34.0, Red Cell Distribution Width 10.5L, Platelet Count 257, Mean Platelet Volume 6.8, Neutrophils (%) (Auto) 49.0, Lymphocytes (%) (Auto) 40.3, Monocytes (%) (Auto) 7.8, Eosinophils (%) (Auto) 1.9, Basophils (%) (Auto) 1.0, Sodium Level 141, Potassium Level 4.4, Chloride Level 103, Carbon Dioxide Level 34H, Anion Gap 5, Blood Urea Nitrogen 10, Creatinine 1.0, Estimat Glomerular Filtration Rate 55.5, Glucose Level 98, Calcium Level 9.0, Total Bilirubin 0.3, Aspartate Amino Transf (AST/SGOT) 33, Alanine Aminotransferase (ALT/SGPT) 28, Alkaline Phosphatase 83, Total Protein 7.0, Albumin 3.1L, Globulin 3.9, Albumin/Globulin Ratio 0.8L, Thyroid Stimulating Hormone (TSH) 2.325, Phenytoin (Dilantin) Level 22.7H, Valproic Acid (Depakene) Level 54 07/01/18 15:00: Urine Color Yellow, Urine Appearance Clear, Urine pH 7, Urine Specific [place] 1.010, Urine Protein Negative, Urine Glucose (UA) Negative, Urine Ketones Negative, Urine Blood Negative, Urine Nitrite Negative, Urine Bilirubin Negative , Urine Urobilinogen 1H, Urine Leukocyte Esterase 1+H, Urine RBC 0-2, Urine WBC 2-4, Urine Squamous Epithelial Cells Few, Urine Bacteria Few 07/02/18 05:20: White Blood Count 5.9, Red Blood Count 4.91, Hemoglobin 15.6, Hematocrit 44.8, Mean Corpuscular Volume 91, Mean Corpuscular Hemoglobin 31.7H, Mean Corpuscular Hemoglobin Concent 34.8, Red Cell Distribution Width 10.7L, Platelet Count 223, Mean Platelet Volume 6.8, Neutrophils (%) (Auto) 46.5, Lymphocytes (%) (Auto) 39.2, Monocytes (%) (Auto) 9.8, Eosinophils (%) (Auto) 3.3H, Basophils (%) (Auto ) 1.2, Sodium Level 144, Potassium Level 3.9, Chloride Level 107, Carbon Dioxide Level 31, Anion Gap 6, Blood Urea Nitrogen 13, Creatinine 0.9, Estimat Glomerular Filtration Rate > 60, Glucose Level 103, Calcium Level 8.5, Total Bilirubin 0.3, Aspartate Amino Transf (AST/SGOT) 28, Alanine Aminotransferase ( ALT/SGPT) 29, Alkaline Phosphatase 77, Total Protein 6.5, Albumin 2.9L, Globulin 3.6, Albumin/Globulin Ratio 0.8L, Thyroid Stimulating Hormone (TSH) 1.660, Prothrombin Time 10.9, Prothromb Time International Ratio 1.0, Activated Partial Thromboplast Time 28, Triglycerides Level 169H, Cholesterol Level 161, LDL Cholesterol 70, HDL Cholesterol 56, Cholesterol/HDL Ratio 2.9L Height (Feet): 5 Height (Inches): 3.00 Weight (Pounds): 239 General Appearance: lethargic EENT: normal ENT inspection Neck: normal alignment Cardiovascular: normal peripheral pulses, normal rate, regular rhythm Respiratory/Chest: chest wall non-tender, lungs clear, normal breath sounds Abdomen: normal bowel sounds, non tender, soft Extremities: normal inspection Edema: no edema noted Arm (L), no edema noted Arm (R), no edema noted Leg (L), no edema noted Leg (R), no edema noted Pedal (L), no edema noted Pedal (R), no edema noted Generalized Neurologic: motor weakness Skin: normal pigmentation, warm/dry Vitor Moore DO Jul 02, 2018 13:33
--- NOTE | 2018-07-02 14:34 | Consultation ---
Consult Note Consult Note # ID [id number] Jovanni Mclain MD Jul 02, 2018 14:34
[2018-07-02] MEDS: LORazepam Inj 2mg/ml 1ml IV PRN (15:23)
--- NOTE | 2018-07-02 15:38 | Diagnostic Imaging Report ---
Indication: Chest pain Technique: One view of the chest Comparison: 06/02/2017 Findings: Lungs and pleural spaces are clear. Heart size is normal. No significant interim change Impression: No acute process
[2018-07-02 16:00] VITALS: BP 119/70
[2018-07-02] MEDS ORDERED: Azithromycin 500 MG in D5W 275 ML IV SCH (16:00)
[2018-07-02 20:00] VITALS: BP 149/82
[2018-07-02] MEDS: TraZODone 50mg tab ORAL SCH ×2 (20:21→20:28)
--- NOTE | 2018-07-02 23:00 | Consultation ---
DATE OF CONSULTATION: 07/02/2018 INFECTIOUS DISEASES CONSULTATION CONSULTING PHYSICIAN: Jovanni Mclain M.D. REFERRING PHYSICIAN: Vitor Moore M.D. REASON FOR CONSULTATION: Evaluation of the patient for COPD exacerbation, antibiotic management. HISTORY OF PRESENT ILLNESS: The patient is a 68-year-old female with multiple medical problems as listed below, who was admitted to this medical center after the patient had fall due to dizziness and injured back. The patient complained of back pain and also she has been complaining of having recent cough. The patient is overall poor historian. Infectious Disease consultation has been requested for further evaluation of the patient and antibiotic management. PAST MEDICAL HISTORY: 1. History of asthma. 2. COPD. 3. Bipolar disorder. 4. History of seizure. ALLERGIES: Codeine. FAMILY HISTORY: Not contributing. REVIEW OF SYSTEMS: Poor historian. Much of the information was able to be gathered as mentioned above. The patient does not have chest pain or abdominal pain. The patient has no diarrhea, nausea, or vomiting. Mostly complaining of back pain. MEDICATIONS: Currently, she is off of antibiotics. PHYSICAL EXAMINATION: VITAL SIGNS: Temperature 98.6, pulse 86, respiratory rate 18, and blood pressure 136/89. HEENT: No pale conjunctivae. No icterus. NECK: No lymphadenopathy. CHEST: Coarse breathing sounds. HEART: S1 and S2. ABDOMEN: Soft, obese. BACK: The patient has ecchymosis in the lower back. EXTREMITIES: No cyanosis at this time. NEUROLOGIC: Awake. LABORATORY AND DIAGNOSTIC DATA: White blood cells 5.9, hemoglobin 16, and platelet 323,000. UA unremarkable. BUN 10, creatinine 0.9. ALT, AST, and alkaline phosphatase are unremarkable. Hand x-ray, no acute injury. ASSESSMENT: The patient is a 68-year-old female with: 1. COPD exacerbation. 2. Afebrile. 3. Normal white blood cells. 4. History of dizziness. PLAN: 1. We will start the patient on Zithromax. 2. Monitor CBC. 3. Monitor BMP. 4. Monitor chest x-ray. 5. Based on the patient's clinical course and labs, we will do further recommendation. Thank you, Dr. Vitor Moore, for allowing me to participate in the care of this patient. I will follow the patient with you during this hospitalization. Jovanni Mclain M.D. DR: Natalia JOB#: [id number] CC:
[2018-07-03] VITALS: BP 135/64
[2018-07-03 04:00] VITALS: BP 122/67
--- NOTE | 2018-07-03 06:30 | Consultation ---
DATE OF CONSULTATION: 07/02/2018 NOTE: POOR AUDIO CONSULTING PHYSICIAN: Jayden Limon PsyD. ATTENDING PHYSICIAN: Vitor Moore D.O. HISTORY OF PRESENT ILLNESS: This is a 68-year-old female patient who unsteady gait, falling, and vertigo. Left shoulder mass, left thumb pain. The patient has been continued . The patient has a history of schizoaffective disorder, bipolar type. The patient has been on psychotropic medications in the past. The patient is alert and oriented to person and place. This clinician assessed the patient. . She does not know why she came . She is very forgetful, confused, helpless. Denies any significant anxiety. Denies any suicidal or homicidal thoughts of ideation. However, does states that she has been sleeping more during the daytime. She is physically not doing well. . PAST MEDICAL HISTORY: COPD, obesity, and vertigo. ALLERGIES: The patient is allergic to codeine. SUBSTANCE ABUSE HISTORY: The patient does have a history of illicit substances including marijuana and history of alcohol use, and she does also smoke cigarettes. SOCIAL HISTORY: The patient is a 68-year-old female patient . MENTAL STATUS EXAMINATION: The patient is alert and oriented to person and place. Mood is dysphoric. Affect blunted. Thought process is disorganized. Poor attention and concentration. Poor insight, judgment, and impulse control. DIAGNOSES: 1. Schizoaffective disorder, bipolar type. 2. . 3. . PLAN: I assessed this patient. Provide the patient with reality orientation. . Continue with behavioral management. This clinician has reviewed the patient's chart. . Jayden Limon PsyD. DR: YVONNE JOB#: [id number] CC:
[2018-07-03 07:11] LABS: ALANINE AMINOTRANSFERASE 23 U/L (12-78); ALBUMIN/GLOBULIN RATIO 0.8 (1.0-2.7); ALKALINE PHOSPHATASE 80 U/L (46-116); ANION GAP 5 mmol/L (5-15); ASPARTATE AMINO TRANSFERASE 31 U/L (15-37); BILIRUBIN,TOTAL 0.4 MG/DL (0.2-1.0); BLOOD UREA NITROGEN 11 mg/dL (7-18); CARBON DIOXIDE 31 MMOL/L (21-32); CHLORIDE 104 MMOL/L (98-107); CREATININE 0.8 MG/DL (0.55-1.30); PHOSPHORUS 3.6 MG/DL (2.5-4.9); SODIUM 140 MMOL/L (136-145)
[2018-07-03 07:13] LABS: BASOPHILS % (AUTO) 1.2 % (0.0-2.0); EOSINOPHILS % (AUTO) 2.4 % (0.0-3.0); HEMOGLOBIN 16.7 G/DL (12.0-16.0); LYMPHOCYTES % (AUTO) 36.8 % (20.0-45.0); MEAN CORPUSCULAR VOLUME 90 FL (80-99); MONOCYTES % (AUTO) 8.2 % (1.0-10.0); NEUTROPHILS % (AUTO) 51.4 % (45.0-75.0); PLATELET COUNT 252 K/UL (150-450); RED BLOOD COUNT 5.35 M/UL (4.20-5.40); RED CELL DISTRIBUTION WIDTH 10.4 % (11.6-14.8); WHITE BLOOD COUNT 6.1 K/UL (4.8-10.8)
[2018-07-03 07:44] VITALS: BP 148/104
[2018-07-03] MEDS: Depakote 125mg Sprinkles ORAL SCH (08:22)
[2018-07-03] MEDS: ARIPiprazole 10mg tab ORAL SCH (08:22)
[2018-07-03] MEDS: Heparin 5000 units/ml inj SUBQ SCH ×2 (08:23→20:33)
[2018-07-03] MEDS: Venlafaxine 25mg tab ORAL SCH (08:23)
--- NOTE | 2018-07-03 10:56 | General Surgery Progress Note ---
General Surgery-Progress Note Subjective Symptoms: improved, tolerating diet Additional Comments states she is feeling better today. left shoulder pain resolved. no n/v/f/c. Objective Last 24 Hour Vital Signs Date Time Temp Pulse Resp B/P (MAP) Pulse Ox O2 Delivery O2 Flow Rate FiO2 07/03/18 08:00 Room Air 07/03/18 07:44 97.5 86 18 148/104 (119) 93 07/03/18 07:34 84 07/03/18 04:00 97.5 88 18 122/67 (85) 97 07/03/18 04:00 86 07/03/18 00:00 82 07/03/18 00:00 97.9 82 20 135/64 (87) 96 07/02/18 21:00 Room Air 07/02/18 20:34 77 18 Room Air 21 07/02/18 20:00 97.5 78 20 149/82 (104) 95 07/02/18 20:00 80 07/02/18 16:00 98.5 83 17 119/70 (86) 92 07/02/18 15:27 80 07/02/18 11:58 98.4 76 21 136/89 (105) 99 07/02/18 11:39 76 I&O Intake and Output 07/02/18 07/03/18 19:00 07:00 Intake Total 1350 ml Balance 1350 ml Intake Oral 1350 ml # Voids 5 3 Wound: clean, dry Drains: none Cardiovascular: RSR Respiratory: clear Abdomen: soft, flat, non-tender, present bowel sounds Extremities: no tenderness, no cyanosis Laboratory Tests Test 07/03/18 06:00 White Blood Count 6.1 K/UL (4.8-10.8) Red Blood Count 5.35 M/UL (4.20-5.40) Hemoglobin 16.7 G/DL (12.0-16.0) H Hematocrit 48.0 % (37.0-47.0) H Mean Corpuscular Volume 90 FL (80-99) Mean Corpuscular Hemoglobin 31.3 PG (27.0-31.0) H Mean Corpuscular Hemoglobin Concent 34.9 G/DL (32.0-36.0) Red Cell Distribution Width 10.4 % (11.6-14.8) L Platelet Count 252 K/UL (150-450) Mean Platelet Volume 6.7 FL (6.5-10.1) Neutrophils (%) (Auto) 51.4 % (45.0-75.0) Lymphocytes (%) (Auto) 36.8 % (20.0-45.0) Monocytes (%) (Auto) 8.2 % (1.0-10.0) Eosinophils (%) (Auto) 2.4 % (0.0-3.0) Basophils (%) (Auto) 1.2 % (0.0-2.0) Sodium Level 140 MMOL/L (136-145) Potassium Level 4.0 MMOL/L (3.5-5.1) Chloride Level 104 MMOL/L (98-107) Carbon Dioxide Level 31 MMOL/L (21-32) Anion Gap 5 mmol/L (5-15) Blood Urea Nitrogen 11 mg/dL (7-18) Creatinine 0.8 MG/DL (0.55-1.30) Estimat Glomerular Filtration Rate > 60 mL/min (>60) Glucose Level 97 MG/DL (74-106) Calcium Level 9.0 MG/DL (8.5-10.1) Phosphorus Level 3.6 MG/DL (2.5-4.9) Magnesium Level 2.1 MG/DL (1.8-2.4) Total Bilirubin 0.4 MG/DL (0.2-1.0) Aspartate Amino Transf (AST/SGOT) 31 U/L (15-37) Alanine Aminotransferase (ALT/SGPT) 23 U/L (12-78) Alkaline Phosphatase 80 U/L (46-116) Total Protein 7.0 G/DL (6.4-8.2) Albumin 3.0 G/DL (3.4-5.0) L Globulin 4.0 g/dL Albumin/Globulin Ratio 0.8 (1.0-2.7) L Phenytoin (Dilantin) Level 19.0 ug/mL (10-20) Plan Problems: (1) Trauma Assessment & Plan: s/p fall left upper arm pain. range of motion nml. exam benign. likely muscle ache from falling left mid back/flank bruise, subcutaneous fat injury stable. no acute surgical or trauma treatment indicated psych as per team thank you (2) Psychosis (3) Cellulitis Uri Lyons 1, 2018 10:56
--- NOTE | 2018-07-03 11:08 | Pulmonology Progress Note ---
Assessment/Plan Problems: (1) Acute encephalopathy (2) Schizophrenia (3) Paranoid disorder (4) COPD (chronic obstructive pulmonary disease) (5) dilantin toxicity Assessment/Plan improving f/u Dilantin level, today is 19 ( therapeutic) f/u psych recommendation respiratory treatment Subjective ROS Limited/Unobtainable: No Constitutional: Reports: no symptoms HEENT: Repors: no symptoms Respiratory: Reports: no symptoms Allergies: Coded Allergies: CODEINE (Verified Allergy, Unknown, 05/10/16) Objective Last 24 Hour Vital Signs Date Time Temp Pulse Resp B/P (MAP) Pulse Ox O2 Delivery O2 Flow Rate FiO2 07/03/18 08:00 Room Air 07/03/18 07:44 97.5 86 18 148/104 (119) 93 07/03/18 07:34 84 07/03/18 04:00 97.5 88 18 122/67 (85) 97 07/03/18 04:00 86 07/03/18 00:00 82 07/03/18 00:00 97.9 82 20 135/64 (87) 96 07/02/18 21:00 Room Air 07/02/18 20:34 77 18 Room Air 21 07/02/18 20:00 97.5 78 20 149/82 (104) 95 07/02/18 20:00 80 07/02/18 16:00 98.5 83 17 119/70 (86) 92 07/02/18 15:27 80 07/02/18 11:58 98.4 76 21 136/89 (105) 99 07/02/18 11:39 76 Intake and Output 07/02/18 07/03/18 19:00 07:00 Intake Total 1350 ml Balance 1350 ml Intake Oral 1350 ml # Voids 5 3 General Appearance: WD/WN HEENT: normocephalic, atraumatic Respiratory/Chest: chest wall non-tender, lungs clear Cardiovascular: normal peripheral pulses, normal rate Abdomen: normal bowel sounds, soft, non tender Genitourinary: normal external genitalia Extremities: no cyanosis Skin: no rash 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 normal Laboratory Tests 07/03/18 06:00: White Blood Count 6.1, Red Blood Count 5.35, Hemoglobin 16.7H, Hematocrit 48.0H , Mean Corpuscular Volume 90, Mean Corpuscular Hemoglobin 31.3H, Mean Corpuscular Hemoglobin Concent 34.9, Red Cell Distribution Width 10.4L, Platelet Count 252, Mean Platelet Volume 6.7, Neutrophils (%) (Auto) 51.4, Lymphocytes (%) (Auto) 36.8, Monocytes (%) (Auto) 8.2, Eosinophils (%) (Auto) 2.4, Basophils (%) (Auto) 1.2, Sodium Level 140, Potassium Level 4.0, Chloride Level 104, Carbon Dioxide Level 31, Anion Gap 5, Blood Urea Nitrogen 11, Creatinine 0.8, Estimat Glomerular Filtration Rate > 60, Glucose Level 97, Calcium Level 9.0, Phosphorus Level 3.6, Magnesium Level 2.1, Total Bilirubin 0.4, Aspartate Amino Transf (AST/SGOT) 31, Alanine Aminotransferase (ALT/SGPT) 23, Alkaline Phosphatase 80, Total Protein 7.0, Albumin 3.0L, Globulin 4.0, Albumin/Globulin Ratio 0.8L, Phenytoin (Dilantin) Level 19.0 Current Medications Medications (Trade) Dose Ordered Sig/Tho Route PRN Reason Start Time Stop Time Status Last Admin Dose Admin Acetaminophen (Tylenol) 650 mg Q4H PRN ORAL fever 07/01/18 18:15 07/31/18 18:14 Al Hydroxide/Mg Hydroxide (Mylanta II) 30 ml Q6H PRN ORAL dyspepsia 07/01/18 18:15 07/31/18 18:14 Albuterol/ Ipratropium (Albuterol/ Ipratropium) 3 ml Q4H PRN HHN Shortness of Breath 07/01/18 18:15 07/06/18 18:14 Aripiprazole (Abilify) 20 mg DAILY ORAL 07/02/18 09:00 08/01/18 08:59 07/03/18 08:22 Azithromycin 500 mg/Dextrose 275 ml @ 275 mls/hr Q24HRS IV 07/02/18 16:00 07/08/18 16:59 07/02/18 15:32 Clonidine HCl (Catapres Tab) 0.1 mg Q4H PRN ORAL For High Blood Pressure 07/01/18 18:15 07/31/18 18:14 Dextrose (Dextrose 50%) 25 ml Q30M PRN IV Hypoglycemia 07/01/18 18:15 07/31/18 18:14 Dextrose (Dextrose 50%) 50 ml Q30M PRN IV Hypoglycemia 07/01/18 18:15 07/31/18 18:14 Divalproex Sodium (Depakote Sprinkles) 750 mg Q12HR ORAL 07/01/18 21:00 07/31/18 20:59 07/03/18 08:22 Heparin Sodium (Porcine) (Heparin 5000 units/ml) 5,000 units EVERY 12 HOURS SUBQ 07/01/18 21:00 07/31/18 20:59 07/03/18 08:23 Lorazepam (Ativan 2mg/ml 1ml) 0.5 mg Q4H PRN IV For Anxiety 07/01/18 18:15 07/08/18 18:14 07/02/18 15:23 Mirtazapine (Remeron) 7.5 mg BEDTIME ORAL 07/01/18 21:00 07/31/18 20:59 07/01/18 20:47 Morphine Sulfate (Morphine Sulfate) 1 mg Q4H PRN IVP For Pain 7-10 07/01/18 18:15 07/08/18 18:14 Nitroglycerin (Ntg) 0.4 mg Q5M X 3 DOSES PRN SL Prn Chest Pain 07/01/18 18:15 07/31/18 18:14 Ondansetron HCl (Zofran) 4 mg Q6H PRN IVP Nausea & Vomiting 07/01/18 18:15 07/31/18 18:14 Polyethylene Glycol (Miralax) 17 gm HSPRN PRN ORAL Constipation 07/01/18 18:15 07/31/18 18:14 Temazepam (Restoril) 15 mg HSPRN PRN ORAL Insomnia 07/01/18 18:15 07/08/18 18:14 Trazodone HCl (Desyrel) 50 mg BEDTIME ORAL 07/01/18 21:00 07/31/18 20:59 07/02/18 20:28 Venlafaxine HCl (Effexor) 100 mg DAILY ORAL 07/02/18 09:00 08/01/18 08:59 07/03/18 08:23 Keon Tejeda MD Jul 03, 2018 11:08
--- NOTE | 2018-07-03 11:10 | Infectious Diseases Prog Note ---
Assessment/Plan Assessment/Plan ASSESSMENT: The patient is a 68-year-old female with: COPD exacerbation CXR: NAPD Afebrile Normal WBC History of dizziness History of asthma Bipolar disorder History of seizure PLAN: Cont the patient on Zithromax d# 2 Monitor CBC Monitor BMP Monitor chest x-ray Subjective Constitutional: Denies: no symptoms, fever, chills, fatigue, anorexia, drenching sweats, other Allergies: Coded Allergies: CODEINE (Verified Allergy, Unknown, 05/10/16) Objective Vital Signs Last 24 Hour Vital Signs Date Time Temp Pulse Resp B/P (MAP) Pulse Ox O2 Delivery O2 Flow Rate FiO2 07/03/18 08:00 Room Air 07/03/18 07:44 97.5 86 18 148/104 (119) 93 07/03/18 07:34 84 07/03/18 04:00 97.5 88 18 122/67 (85) 97 07/03/18 04:00 86 07/03/18 00:00 82 07/03/18 00:00 97.9 82 20 135/64 (87) 96 07/02/18 21:00 Room Air 07/02/18 20:34 77 18 Room Air 21 07/02/18 20:00 97.5 78 20 149/82 (104) 95 07/02/18 20:00 80 07/02/18 16:00 98.5 83 17 119/70 (86) 92 07/02/18 15:27 80 07/02/18 11:58 98.4 76 21 136/89 (105) 99 07/02/18 11:39 76 Height (Feet): 5 Height (Inches): 3.00 Weight (Pounds): 239 HEENT: atraumatic Respiratory/Chest: no respiratory distress Cardiovascular: regularly irregular Abdomen: no organomegaly Laboratory Tests Test 07/03/18 06:00 White Blood Count 6.1 K/UL (4.8-10.8) Red Blood Count 5.35 M/UL (4.20-5.40) Hemoglobin 16.7 G/DL (12.0-16.0) H Hematocrit 48.0 % (37.0-47.0) H Mean Corpuscular Volume 90 FL (80-99) Mean Corpuscular Hemoglobin 31.3 PG (27.0-31.0) H Mean Corpuscular Hemoglobin Concent 34.9 G/DL (32.0-36.0) Red Cell Distribution Width 10.4 % (11.6-14.8) L Platelet Count 252 K/UL (150-450) Mean Platelet Volume 6.7 FL (6.5-10.1) Neutrophils (%) (Auto) 51.4 % (45.0-75.0) Lymphocytes (%) (Auto) 36.8 % (20.0-45.0) Monocytes (%) (Auto) 8.2 % (1.0-10.0) Eosinophils (%) (Auto) 2.4 % (0.0-3.0) Basophils (%) (Auto) 1.2 % (0.0-2.0) Sodium Level 140 MMOL/L (136-145) Potassium Level 4.0 MMOL/L (3.5-5.1) Chloride Level 104 MMOL/L (98-107) Carbon Dioxide Level 31 MMOL/L (21-32) Anion Gap 5 mmol/L (5-15) Blood Urea Nitrogen 11 mg/dL (7-18) Creatinine 0.8 MG/DL (0.55-1.30) Estimat Glomerular Filtration Rate > 60 mL/min (>60) Glucose Level 97 MG/DL (74-106) Calcium Level 9.0 MG/DL (8.5-10.1) Phosphorus Level 3.6 MG/DL (2.5-4.9) Magnesium Level 2.1 MG/DL (1.8-2.4) Total Bilirubin 0.4 MG/DL (0.2-1.0) Aspartate Amino Transf (AST/SGOT) 31 U/L (15-37) Alanine Aminotransferase (ALT/SGPT) 23 U/L (12-78) Alkaline Phosphatase 80 U/L (46-116) Total Protein 7.0 G/DL (6.4-8.2) Albumin 3.0 G/DL (3.4-5.0) L Globulin 4.0 g/dL Albumin/Globulin Ratio 0.8 (1.0-2.7) L Phenytoin (Dilantin) Level 19.0 ug/mL (10-20) Current Medications Medications (Trade) Dose Ordered Sig/Tho Route PRN Reason Start Time Stop Time Status Last Admin Dose Admin Acetaminophen (Tylenol) 650 mg Q4H PRN ORAL fever 07/01/18 18:15 07/31/18 18:14 Al Hydroxide/Mg Hydroxide (Mylanta II) 30 ml Q6H PRN ORAL dyspepsia 07/01/18 18:15 07/31/18 18:14 Albuterol/ Ipratropium (Albuterol/ Ipratropium) 3 ml Q4H PRN HHN Shortness of Breath 07/01/18 18:15 07/06/18 18:14 Aripiprazole (Abilify) 20 mg DAILY ORAL 07/02/18 09:00 08/01/18 08:59 07/03/18 08:22 Azithromycin 500 mg/Dextrose 275 ml @ 275 mls/hr Q24HRS IV 07/02/18 16:00 07/08/18 16:59 07/02/18 15:32 Clonidine HCl (Catapres Tab) 0.1 mg Q4H PRN ORAL For High Blood Pressure 07/01/18 18:15 07/31/18 18:14 Dextrose (Dextrose 50%) 25 ml Q30M PRN IV Hypoglycemia 07/01/18 18:15 07/31/18 18:14 Dextrose (Dextrose 50%) 50 ml Q30M PRN IV Hypoglycemia 07/01/18 18:15 07/31/18 18:14 Divalproex Sodium (Depakote Sprinkles) 750 mg Q12HR ORAL 07/01/18 21:00 07/31/18 20:59 07/03/18 08:22 Heparin Sodium (Porcine) (Heparin 5000 units/ml) 5,000 units EVERY 12 HOURS SUBQ 07/01/18 21:00 07/31/18 20:59 07/03/18 08:23 Lorazepam (Ativan 2mg/ml 1ml) 0.5 mg Q4H PRN IV For Anxiety 07/01/18 18:15 07/08/18 18:14 07/02/18 15:23 Mirtazapine (Remeron) 7.5 mg BEDTIME ORAL 07/01/18 21:00 07/31/18 20:59 07/01/18 20:47 Morphine Sulfate (Morphine Sulfate) 1 mg Q4H PRN IVP For Pain 7-10 07/01/18 18:15 07/08/18 18:14 Nitroglycerin (Ntg) 0.4 mg Q5M X 3 DOSES PRN SL Prn Chest Pain 07/01/18 18:15 07/31/18 18:14 Ondansetron HCl (Zofran) 4 mg Q6H PRN IVP Nausea & Vomiting 07/01/18 18:15 07/31/18 18:14 Polyethylene Glycol (Miralax) 17 gm HSPRN PRN ORAL Constipation 07/01/18 18:15 07/31/18 18:14 Temazepam (Restoril) 15 mg HSPRN PRN ORAL Insomnia 07/01/18 18:15 07/08/18 18:14 Trazodone HCl (Desyrel) 50 mg BEDTIME ORAL 07/01/18 21:00 07/31/18 20:59 07/02/18 20:28 Venlafaxine HCl (Effexor) 100 mg DAILY ORAL 07/02/18 09:00 08/01/18 08:59 07/03/18 08:23 Jovanni Mclain MD Jul 03, 2018 11:10
[2018-07-03 12:00] VITALS: BP 147/84
--- NOTE | 2018-07-03 14:07 | General Progress Note ---
Assessment/Plan Problem List: (1) Falling ICD Codes: R29.6 - Repeated falls SNOMED: 121283889 (2) Weak ICD Codes: R53.1 - Weakness SNOMED: 69362392 (3) Vertigo ICD Codes: R42 - Dizziness and giddiness SNOMED: 952639859 (4) Acute encephalopathy ICD Codes: G93.40 - Encephalopathy, unspecified SNOMED: 57506629, 237387633 (5) Psychosis ICD Codes: F29 - Unspecified psychosis not due to a substance or known physiological condition SNOMED: 08608096 (6) Bipolar 1 disorder ICD Codes: F31.9 - Bipolar disorder, unspecified SNOMED: 251899624 (7) COPD (chronic obstructive pulmonary disease) ICD Codes: J44.9 - Chronic obstructive pulmonary disease, unspecified SNOMED: 92966787 (8) Schizophrenia ICD Codes: F20.9 - Schizophrenia, unspecified SNOMED: 76046852 (9) Paranoid disorder ICD Codes: F22 - Delusional disorders SNOMED: 529594464 (10) dilantin toxicity Status: stable, progressing Assessment/Plan ot pt diet ivf abx cbc bmp am psyc transfer Subjective Constitutional: Reports: weakness Allergies: Coded Allergies: CODEINE (Verified Allergy, Unknown, 05/10/16) All Systems: reviewed and negative except above Subjective sleepy calm sl dizzy Objective Last 24 Hour Vital Signs Date Time Temp Pulse Resp B/P (MAP) Pulse Ox O2 Delivery O2 Flow Rate FiO2 07/03/18 12:00 98.3 80 18 147/84 (105) 94 07/03/18 11:19 80 07/03/18 08:00 81 18 Room Air 21 07/03/18 08:00 Room Air 07/03/18 07:44 97.5 86 18 148/104 (119) 93 07/03/18 07:34 84 07/03/18 04:00 97.5 88 18 122/67 (85) 97 07/03/18 04:00 86 07/03/18 00:00 82 07/03/18 00:00 97.9 82 20 135/64 (87) 96 07/02/18 21:00 Room Air 07/02/18 20:34 77 18 Room Air 21 07/02/18 20:00 97.5 78 20 149/82 (104) 95 07/02/18 20:00 80 07/02/18 16:00 98.5 83 17 119/70 (86) 92 07/02/18 15:27 80 Intake and Output 07/02/18 07/03/18 19:00 07:00 Intake Total 1350 ml Balance 1350 ml Intake Oral 1350 ml # Voids 5 3 Laboratory Tests 07/03/18 06:00: White Blood Count 6.1, Red Blood Count 5.35, Hemoglobin 16.7H, Hematocrit 48.0H , Mean Corpuscular Volume 90, Mean Corpuscular Hemoglobin 31.3H, Mean Corpuscular Hemoglobin Concent 34.9, Red Cell Distribution Width 10.4L, Platelet Count 252, Mean Platelet Volume 6.7, Neutrophils (%) (Auto) 51.4, Lymphocytes (%) (Auto) 36.8, Monocytes (%) (Auto) 8.2, Eosinophils (%) (Auto) 2.4, Basophils (%) (Auto) 1.2, Sodium Level 140, Potassium Level 4.0, Chloride Level 104, Carbon Dioxide Level 31, Anion Gap 5, Blood Urea Nitrogen 11, Creatinine 0.8, Estimat Glomerular Filtration Rate > 60, Glucose Level 97, Calcium Level 9.0, Phosphorus Level 3.6, Magnesium Level 2.1, Total Bilirubin 0.4, Aspartate Amino Transf (AST/SGOT) 31, Alanine Aminotransferase (ALT/SGPT) 23, Alkaline Phosphatase 80, Total Protein 7.0, Albumin 3.0L, Globulin 4.0, Albumin/Globulin Ratio 0.8L, Phenytoin (Dilantin) Level 19.0 Height (Feet): 5 Height (Inches): 3.00 Weight (Pounds): 239 General Appearance: lethargic EENT: normal ENT inspection Neck: normal alignment Cardiovascular: normal peripheral pulses, normal rate, regular rhythm Respiratory/Chest: chest wall non-tender, lungs clear, normal breath sounds Abdomen: normal bowel sounds, non tender, soft Extremities: normal inspection Edema: no edema noted Arm (L), no edema noted Arm (R), no edema noted Leg (L), no edema noted Leg (R), no edema noted Pedal (L), no edema noted Pedal (R), no edema noted Generalized Neurologic: responsive, motor weakness Skin: normal pigmentation, warm/dry MooreVitorg Jul 03, 2018 14:07
[2018-07-03] MEDS ORDERED: Nitroglycerin Subl 0.4mg tab SL PRN (15:30)
[2018-07-03] MEDS ORDERED: DEPAKOTE250 MG PO (15:31)
[2018-07-03 16:00] VITALS: BP 131/76
[2018-07-03] MEDS ORDERED: Morphine Sulfate 2mg/ml Inj IVP PRN (16:00)
[2018-07-03] MEDS ORDERED: Albuterol/Ipratropium 3ml neb HHN PRN (16:00)
[2018-07-03] MEDS ORDERED: Mylanta II UD 30ml ORAL PRN (16:00)
[2018-07-03] MEDS: Azithromycin 500 MG in D5W 275 ML IV SCH (16:15)
[2018-07-03] MEDS: LORazepam Inj 2mg/ml 1ml IV PRN (16:17)
[2018-07-03 20:00] VITALS: BP 106/90
[2018-07-03] MEDS ORDERED: Miralax 17gm pkt ORAL PRN (21:00)
[2018-07-03] MEDS ORDERED: TraZODone 50mg tab ORAL SCH (21:00)
[2018-07-04] VITALS: BP 116/85
[2018-07-04 04:00] VITALS: BP 128/86
[2018-07-04 07:11] LABS: BASOPHILS % (AUTO) 1.2 % (0.0-2.0); EOSINOPHILS % (AUTO) 2.1 % (0.0-3.0); HEMATOCRIT 46.6 % (37.0-47.0); HEMOGLOBIN 16.6 G/DL (12.0-16.0); LYMPHOCYTES % (AUTO) 35.8 % (20.0-45.0); MEAN CORPUSCULAR VOLUME 90 FL (80-99); MONOCYTES % (AUTO) 8.2 % (1.0-10.0); NEUTROPHILS % (AUTO) 52.7 % (45.0-75.0); PLATELET COUNT 243 K/UL (150-450); RED BLOOD COUNT 5.21 M/UL (4.20-5.40); RED CELL DISTRIBUTION WIDTH 10.5 % (11.6-14.8); WHITE BLOOD COUNT 6.4 K/UL (4.8-10.8)
[2018-07-04 07:23] LABS: ANION GAP 6 mmol/L (5-15); BLOOD UREA NITROGEN 10 mg/dL (7-18); CARBON DIOXIDE 30 MMOL/L (21-32); CHLORIDE 104 MMOL/L (98-107); CREATININE 0.8 MG/DL (0.55-1.30); POTASSIUM 3.9 MMOL/L (3.5-5.1); SODIUM 140 MMOL/L (136-145)
[2018-07-04 08:00] VITALS: BP 126/89
[2018-07-04] MEDS: Heparin 5000 units/ml inj SUBQ SCH (08:17)
[2018-07-04] MEDS ORDERED: Venlafaxine 25mg tab ORAL SCH (09:00)
[2018-07-04] MEDS ORDERED: ARIPiprazole 10mg tab ORAL SCH (09:00)
[2018-07-04] MEDS: LORazepam Inj 2mg/ml 1ml IV PRN ×2 (09:17→18:12)
--- NOTE | 2018-07-04 11:04 | Pulmonology Progress Note ---
Assessment/Plan Problems: (1) Acute encephalopathy (2) Schizophrenia (3) Paranoid disorder (4) COPD (chronic obstructive pulmonary disease) (5) dilantin toxicity Assessment/Plan improving f/u Dilantin level, it is 19 ( therapeutic) f/u psych recommendation respiratory treatment On Depakote, might need to restart on Dilantin at lower dose Subjective ROS Limited/Unobtainable: No Interval Events: doing better, better mood Allergies: Coded Allergies: CODEINE (Verified Allergy, Unknown, 05/10/16) Objective Last 24 Hour Vital Signs Date Time Temp Pulse Resp B/P (MAP) Pulse Ox O2 Delivery O2 Flow Rate FiO2 07/04/18 08:31 Room Air 07/04/18 08:00 98.4 88 20 126/89 (101) 98 07/04/18 07:33 78 16 Room Air 21 07/04/18 04:00 98.5 84 20 128/86 (100) 94 07/04/18 00:00 97.7 90 20 116/85 (95) 94 07/03/18 21:00 Room Air 07/03/18 20:00 96.7 83 20 106/90 (95) 96 07/03/18 19:45 87 18 Room Air 21 07/03/18 16:00 97.7 85 20 131/76 (94) 99 07/03/18 12:00 98.3 80 18 147/84 (105) 94 07/03/18 11:19 80 Intake and Output 07/03/18 07/04/18 19:00 07:00 Intake Total 800 ml 400 ml Output Total 550 ml Balance 250 ml 400 ml Intake Oral 800 ml 400 ml Output Urine Total 550 ml # Voids 3 2 # Bowel Movements 1 General Appearance: WD/WN HEENT: normocephalic, atraumatic Respiratory/Chest: chest wall non-tender, lungs clear Breasts: no masses Cardiovascular: normal peripheral pulses, normal rate Abdomen: normal bowel sounds, soft, non tender Genitourinary: normal external genitalia 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 Lymphatic: no neck adenopathy Laboratory Tests 07/04/18 06:20: White Blood Count 6.4, Red Blood Count 5.21, Hemoglobin 16.6H, Hematocrit 46.6, Mean Corpuscular Volume 90, Mean Corpuscular Hemoglobin 31.8H, Mean Corpuscular Hemoglobin Concent 35.6, Red Cell Distribution Width 10.5L, Platelet Count 243, Mean Platelet Volume 6.5, Neutrophils (%) (Auto) 52.7, Lymphocytes (%) (Auto) 35.8, Monocytes (%) (Auto) 8.2, Eosinophils (%) (Auto) 2.1, Basophils (%) (Auto ) 1.2, Sodium Level 140, Potassium Level 3.9, Chloride Level 104, Carbon Dioxide Level 30, Anion Gap 6, Blood Urea Nitrogen 10, Creatinine 0.8, Estimat Glomerular Filtration Rate > 60, Glucose Level 100, Calcium Level 9.0 Current Medications Medications (Trade) Dose Ordered Sig/Tho Route PRN Reason Start Time Stop Time Status Last Admin Dose Admin Acetaminophen (Tylenol) 650 mg Q4H PRN ORAL T>100.5 07/03/18 16:00 07/31/18 15:59 Al Hydroxide/Mg Hydroxide (Mylanta II) 30 ml Q6H PRN ORAL dyspepsia 07/03/18 16:00 07/31/18 15:59 Albuterol/ Ipratropium (Albuterol/ Ipratropium) 3 ml Q4H PRN HHN Shortness of Breath 07/03/18 16:00 07/06/18 15:59 Aripiprazole (Abilify) 20 mg DAILY ORAL 07/04/18 09:00 08/01/18 08:59 07/04/18 08:16 Azithromycin 500 mg/Dextrose 275 ml @ 275 mls/hr Q24HRS IV 07/03/18 16:00 07/08/18 16:59 07/03/18 16:15 Clonidine HCl (Catapres Tab) 0.1 mg Q4H PRN ORAL SBP > 160mmHg 07/03/18 16:00 07/31/18 15:59 Dextrose (Dextrose 50%) 25 ml Q30M PRN IV Hypoglycemia 07/03/18 15:45 07/31/18 18:14 Dextrose (Dextrose 50%) 50 ml Q30M PRN IV Hypoglycemia 07/03/18 15:45 07/31/18 18:14 Divalproex Sodium (Depakote) 750 mg Q12HR ORAL 07/03/18 21:00 07/31/18 20:59 07/04/18 08:16 Heparin Sodium (Porcine) (Heparin 5000 units/ml) 5,000 units EVERY 12 HOURS SUBQ 07/03/18 21:00 07/31/18 20:59 07/04/18 08:17 Lorazepam (Ativan 2mg/ml 1ml) 0.5 mg Q4H PRN IV For Anxiety 07/03/18 16:00 07/08/18 15:59 07/04/18 09:17 Mirtazapine (Remeron) 7.5 mg BEDTIME ORAL 07/03/18 21:00 07/31/18 20:59 07/03/18 20:32 Morphine Sulfate (Morphine Sulfate) 1 mg Q4H PRN IVP For Pain 7-10 07/03/18 16:00 07/08/18 15:59 Nitroglycerin (Ntg) 0.4 mg Q5M X 3 DOSES PRN SL Prn Chest Pain 07/03/18 15:30 07/31/18 18:14 Ondansetron HCl (Zofran) 4 mg Q6H PRN IVP Nausea & Vomiting 07/03/18 16:00 07/31/18 15:59 Polyethylene Glycol (Miralax) 17 gm HSPRN PRN ORAL Constipation 07/03/18 21:00 07/31/18 20:59 Temazepam (Restoril) 15 mg HSPRN PRN ORAL Insomnia 07/03/18 21:00 07/08/18 20:59 Trazodone HCl (Desyrel) 50 mg BEDTIME ORAL 07/03/18 21:00 07/31/18 20:59 07/03/18 20:32 Venlafaxine HCl (Effexor) 100 mg DAILY ORAL 07/04/18 09:00 08/01/18 08:59 07/04/18 08:16 Keon Tejeda MD Jul 04, 2018 11:04
--- NOTE | 2018-07-04 11:15 | General Surgery Progress Note ---
General Surgery-Progress Note Subjective Additional Comments no acute events. doing well. comfortable. ambulatory by herself. pain improved. no n/v/f/c. Objective Last 24 Hour Vital Signs Date Time Temp Pulse Resp B/P (MAP) Pulse Ox O2 Delivery O2 Flow Rate FiO2 07/04/18 08:31 Room Air 07/04/18 08:00 98.4 88 20 126/89 (101) 98 07/04/18 07:33 78 16 Room Air 21 07/04/18 04:00 98.5 84 20 128/86 (100) 94 07/04/18 00:00 97.7 90 20 116/85 (95) 94 07/03/18 21:00 Room Air 07/03/18 20:00 96.7 83 20 106/90 (95) 96 07/03/18 19:45 87 18 Room Air 21 07/03/18 16:00 97.7 85 20 131/76 (94) 99 07/03/18 12:00 98.3 80 18 147/84 (105) 94 07/03/18 11:19 80 I&O Intake and Output 07/03/18 07/04/18 19:00 07:00 Intake Total 800 ml 400 ml Output Total 550 ml Balance 250 ml 400 ml Intake Oral 800 ml 400 ml Output Urine Total 550 ml # Voids 3 2 # Bowel Movements 1 Wound: clean Drains: none Cardiovascular: RSR Respiratory: clear Abdomen: soft, flat, non-tender Extremities: no edema, no tenderness, no cyanosis Laboratory Tests Test 07/04/18 06:20 White Blood Count 6.4 K/UL (4.8-10.8) Red Blood Count 5.21 M/UL (4.20-5.40) Hemoglobin 16.6 G/DL (12.0-16.0) H Hematocrit 46.6 % (37.0-47.0) Mean Corpuscular Volume 90 FL (80-99) Mean Corpuscular Hemoglobin 31.8 PG (27.0-31.0) H Mean Corpuscular Hemoglobin Concent 35.6 G/DL (32.0-36.0) Red Cell Distribution Width 10.5 % (11.6-14.8) L Platelet Count 243 K/UL (150-450) Mean Platelet Volume 6.5 FL (6.5-10.1) Neutrophils (%) (Auto) 52.7 % (45.0-75.0) Lymphocytes (%) (Auto) 35.8 % (20.0-45.0) Monocytes (%) (Auto) 8.2 % (1.0-10.0) Eosinophils (%) (Auto) 2.1 % (0.0-3.0) Basophils (%) (Auto) 1.2 % (0.0-2.0) Sodium Level 140 MMOL/L (136-145) Potassium Level 3.9 MMOL/L (3.5-5.1) Chloride Level 104 MMOL/L (98-107) Carbon Dioxide Level 30 MMOL/L (21-32) Anion Gap 6 mmol/L (5-15) Blood Urea Nitrogen 10 mg/dL (7-18) Creatinine 0.8 MG/DL (0.55-1.30) Estimat Glomerular Filtration Rate > 60 mL/min (>60) Glucose Level 100 MG/DL (74-106) Calcium Level 9.0 MG/DL (8.5-10.1) Plan Problems: (1) Trauma Assessment & Plan: s/p fall left upper arm pain. range of motion nml. exam benign. likely muscle ache from falling left mid back/flank bruise, subcutaneous fat injury stable. no acute surgical or trauma treatment indicated psych as per team d/c planning thank you (2) Psychosis (3) Cellulitis Uri Lyons Jul 04, 2018 11:15
[2018-07-04 12:00] VITALS: BP 143/100
--- NOTE | 2018-07-04 13:21 | General Progress Note ---
Assessment/Plan Problem List: (1) Falling ICD Codes: R29.6 - Repeated falls SNOMED: 474802415 (2) Weak ICD Codes: R53.1 - Weakness SNOMED: 70771823 (3) Vertigo ICD Codes: R42 - Dizziness and giddiness SNOMED: 489622014 (4) Acute encephalopathy ICD Codes: G93.40 - Encephalopathy, unspecified SNOMED: 65130958, 995029035 (5) Psychosis ICD Codes: F29 - Unspecified psychosis not due to a substance or known physiological condition SNOMED: 54417797 (6) Bipolar 1 disorder ICD Codes: F31.9 - Bipolar disorder, unspecified SNOMED: 409962695 (7) COPD (chronic obstructive pulmonary disease) ICD Codes: J44.9 - Chronic obstructive pulmonary disease, unspecified SNOMED: 92809894 (8) Schizophrenia ICD Codes: F20.9 - Schizophrenia, unspecified SNOMED: 19178581 (9) Paranoid disorder ICD Codes: F22 - Delusional disorders SNOMED: 843518435 (10) dilantin toxicity Status: stable, progressing Assessment/Plan ot pt diet ivf abx psyc transfer vs snf Subjective Constitutional: Reports: weakness Allergies: Coded Allergies: CODEINE (Verified Allergy, Unknown, 05/10/16) All Systems: reviewed and negative except above Subjective sleepy calm Objective Last 24 Hour Vital Signs Date Time Temp Pulse Resp B/P (MAP) Pulse Ox O2 Delivery O2 Flow Rate FiO2 07/04/18 12:00 97.7 84 20 143/100 (114) 96 07/04/18 08:31 Room Air 07/04/18 08:00 98.4 88 20 126/89 (101) 98 07/04/18 07:33 78 16 Room Air 21 07/04/18 04:00 98.5 84 20 128/86 (100) 94 07/04/18 00:00 97.7 90 20 116/85 (95) 94 07/03/18 21:00 Room Air 07/03/18 20:00 96.7 83 20 106/90 (95) 96 07/03/18 19:45 87 18 Room Air 21 07/03/18 16:00 97.7 85 20 131/76 (94) 99 Intake and Output 07/03/18 07/04/18 19:00 07:00 Intake Total 800 ml 400 ml Output Total 550 ml Balance 250 ml 400 ml Intake Oral 800 ml 400 ml Output Urine Total 550 ml # Voids 3 2 # Bowel Movements 1 Laboratory Tests 07/04/18 06:20: White Blood Count 6.4, Red Blood Count 5.21, Hemoglobin 16.6H, Hematocrit 46.6, Mean Corpuscular Volume 90, Mean Corpuscular Hemoglobin 31.8H, Mean Corpuscular Hemoglobin Concent 35.6, Red Cell Distribution Width 10.5L, Platelet Count 243, Mean Platelet Volume 6.5, Neutrophils (%) (Auto) 52.7, Lymphocytes (%) (Auto) 35.8, Monocytes (%) (Auto) 8.2, Eosinophils (%) (Auto) 2.1, Basophils (%) (Auto ) 1.2, Sodium Level 140, Potassium Level 3.9, Chloride Level 104, Carbon Dioxide Level 30, Anion Gap 6, Blood Urea Nitrogen 10, Creatinine 0.8, Estimat Glomerular Filtration Rate > 60, Glucose Level 100, Calcium Level 9.0 Height (Feet): 5 Height (Inches): 3.00 Weight (Pounds): 239 General Appearance: lethargic EENT: normal ENT inspection Neck: normal alignment Cardiovascular: normal peripheral pulses, normal rate, regular rhythm Respiratory/Chest: chest wall non-tender, lungs clear, normal breath sounds Abdomen: normal bowel sounds, non tender, soft Extremities: normal inspection Edema: no edema noted Arm (L), no edema noted Arm (R), no edema noted Leg (L), no edema noted Leg (R), no edema noted Pedal (L), no edema noted Pedal (R), no edema noted Generalized Neurologic: responsive, motor weakness Skin: normal pigmentation, warm/dry Vitor Moore DO Jul 04, 2018 13:20
--- NOTE | 2018-07-04 15:16 | Infectious Diseases Prog Note ---
Assessment/Plan Assessment/Plan ASSESSMENT: The patient is a 68-year-old female with: COPD exacerbation CXR: NAPD Afebrile Normal WBC History of dizziness History of asthma Bipolar disorder History of seizure PLAN: Cont the patient on Zithromax d# 3 / 5-7 , ok to DC pt on oral Zithro to complete the course Monitor CBC Monitor BMP Monitor chest x-ray Subjective Allergies: Coded Allergies: CODEINE (Verified Allergy, Unknown, 05/10/16) Subjective probable DC today Objective Vital Signs Last 24 Hour Vital Signs Date Time Temp Pulse Resp B/P (MAP) Pulse Ox O2 Delivery O2 Flow Rate FiO2 07/04/18 12:00 97.7 84 20 143/100 (114) 96 07/04/18 08:31 Room Air 07/04/18 08:00 98.4 88 20 126/89 (101) 98 07/04/18 07:33 78 16 Room Air 21 07/04/18 04:00 98.5 84 20 128/86 (100) 94 07/04/18 00:00 97.7 90 20 116/85 (95) 94 07/03/18 21:00 Room Air 07/03/18 20:00 96.7 83 20 106/90 (95) 96 07/03/18 19:45 87 18 Room Air 21 07/03/18 16:00 97.7 85 20 131/76 (94) 99 Height (Feet): 5 Height (Inches): 3.00 Weight (Pounds): 239 HEENT: mucous membranes moist Respiratory/Chest: no respiratory distress Cardiovascular: no gallop/murmur Abdomen: non distended Laboratory Tests Test 07/04/18 06:20 White Blood Count 6.4 K/UL (4.8-10.8) Red Blood Count 5.21 M/UL (4.20-5.40) Hemoglobin 16.6 G/DL (12.0-16.0) H Hematocrit 46.6 % (37.0-47.0) Mean Corpuscular Volume 90 FL (80-99) Mean Corpuscular Hemoglobin 31.8 PG (27.0-31.0) H Mean Corpuscular Hemoglobin Concent 35.6 G/DL (32.0-36.0) Red Cell Distribution Width 10.5 % (11.6-14.8) L Platelet Count 243 K/UL (150-450) Mean Platelet Volume 6.5 FL (6.5-10.1) Neutrophils (%) (Auto) 52.7 % (45.0-75.0) Lymphocytes (%) (Auto) 35.8 % (20.0-45.0) Monocytes (%) (Auto) 8.2 % (1.0-10.0) Eosinophils (%) (Auto) 2.1 % (0.0-3.0) Basophils (%) (Auto) 1.2 % (0.0-2.0) Sodium Level 140 MMOL/L (136-145) Potassium Level 3.9 MMOL/L (3.5-5.1) Chloride Level 104 MMOL/L (98-107) Carbon Dioxide Level 30 MMOL/L (21-32) Anion Gap 6 mmol/L (5-15) Blood Urea Nitrogen 10 mg/dL (7-18) Creatinine 0.8 MG/DL (0.55-1.30) Estimat Glomerular Filtration Rate > 60 mL/min (>60) Glucose Level 100 MG/DL (74-106) Calcium Level 9.0 MG/DL (8.5-10.1) Current Medications Medications (Trade) Dose Ordered Sig/Tho Route PRN Reason Start Time Stop Time Status Last Admin Dose Admin Acetaminophen (Tylenol) 650 mg Q4H PRN ORAL T>100.5 07/03/18 16:00 07/31/18 15:59 Al Hydroxide/Mg Hydroxide (Mylanta II) 30 ml Q6H PRN ORAL dyspepsia 07/03/18 16:00 07/31/18 15:59 Albuterol/ Ipratropium (Albuterol/ Ipratropium) 3 ml Q4H PRN HHN Shortness of Breath 07/03/18 16:00 07/06/18 15:59 Aripiprazole (Abilify) 20 mg DAILY ORAL 07/04/18 09:00 08/01/18 08:59 07/04/18 08:16 Azithromycin (Zithromax) 250 mg DAILY ORAL 07/05/18 09:00 07/08/18 09:01 Azithromycin 500 mg/Dextrose 275 ml @ 275 mls/hr Q24HRS IV 07/03/18 16:00 07/04/18 23:59 07/03/18 16:15 Clonidine HCl (Catapres Tab) 0.1 mg Q4H PRN ORAL SBP > 160mmHg 07/03/18 16:00 07/31/18 15:59 Dextrose (Dextrose 50%) 25 ml Q30M PRN IV Hypoglycemia 07/03/18 15:45 07/31/18 18:14 Dextrose (Dextrose 50%) 50 ml Q30M PRN IV Hypoglycemia 07/03/18 15:45 07/31/18 18:14 Divalproex Sodium (Depakote) 750 mg Q12HR ORAL 07/03/18 21:00 07/31/18 20:59 07/04/18 08:16 Heparin Sodium (Porcine) (Heparin 5000 units/ml) 5,000 units EVERY 12 HOURS SUBQ 07/03/18 21:00 07/31/18 20:59 07/04/18 08:17 Lorazepam (Ativan 2mg/ml 1ml) 0.5 mg Q4H PRN IV For Anxiety 07/03/18 16:00 07/08/18 15:59 07/04/18 09:17 Mirtazapine (Remeron) 7.5 mg BEDTIME ORAL 07/03/18 21:00 07/31/18 20:59 07/03/18 20:32 Morphine Sulfate (Morphine Sulfate) 1 mg Q4H PRN IVP For Pain 7-10 07/03/18 16:00 07/08/18 15:59 Nitroglycerin (Ntg) 0.4 mg Q5M X 3 DOSES PRN SL Prn Chest Pain 07/03/18 15:30 07/31/18 18:14 Ondansetron HCl (Zofran) 4 mg Q6H PRN IVP Nausea & Vomiting 07/03/18 16:00 07/31/18 15:59 Polyethylene Glycol (Miralax) 17 gm HSPRN PRN ORAL Constipation 07/03/18 21:00 07/31/18 20:59 Temazepam (Restoril) 15 mg HSPRN PRN ORAL Insomnia 07/03/18 21:00 07/08/18 20:59 Trazodone HCl (Desyrel) 50 mg BEDTIME ORAL 07/03/18 21:00 07/31/18 20:59 07/03/18 20:32 Venlafaxine HCl (Effexor) 100 mg DAILY ORAL 07/04/18 09:00 08/01/18 08:59 07/04/18 08:16 Jovanni Mclain MD Jul 04, 2018 15:16
--- NOTE | 2018-07-04 15:50 | Cardiology Report ---
APPROVED REPORT EXAM: Two-dimensional and M-mode echocardiogram with Doppler and color Doppler. INDICATION LV FUNCTION M-Mode DIMENSIONS IVSd1.5 (0.7-1.1cm)Left Atrium (MM)3.5 (1.6-4.0cm) LVDd3.2 (3.5-5.6cm)Aortic Root3.1 (2.0-3.7cm) PWd1.6 (0.7-1.1cm)Aortic Cusp Exc.1.7 (1.5-2.0cm) IVSs1.9 cm LVDs1.8 (2.5-4.0cm) PWs1.5 cm TDI E/Lateral E'0.0E/Medial E'0.0 Technically difficult study due to pts body habitus. Normal left ventricular chamber size, systolic function and wall motion to extent visualized. Left ventricular ejection fraction estimated to be 60-65 %. Anterior Echo-free space, may be due to pericardial fat or effusion. Mild left ventricular hypertrophy. No evidence of pericardial effusion. All other cardiac chamber sizes are within normal limits. Focal aortic valve sclerosis with adequate cusp excursion. Thickened mitral valve leaflets with normal excursion. Mitral annulus and aortic root calcification. Pulmonic valve not well visualized. Normal tricuspid valve structure. IVC at normal size without physiologic collapse, suggestive to increase RA pressure . A color flow and spectral Doppler study was performed and revealed: No aortic insufficiency . Trace mitral regurgitation. Mitral diastolic velocities suggest reduced left ventricular relaxation c/w mild LV diastolic dysfunction (Grade I ). Trace tricuspid regurgitation. Tricuspid systolic velocities suggests peak right ventricular systolic pressure of 20 mmHg
[2018-07-04 16:00] VITALS: BP 148/100
[2018-07-04] MEDS: Azithromycin 500 MG in D5W 275 ML IV SCH (16:00)
--- NOTE | 2018-07-04 16:05 | Cardiology Report ---
APPROVED REPORT EKG Measurement Heart [id number] Normal sinus rhythm Normal ECG
[2018-07-04] MEDS ORDERED: ZITHROMAX250 MG ORAL ×2 (16:18→16:19)
--- NOTE | 2018-07-04 23:56 | Cardiology Progress Note ---
Assessment/Plan Assessment/Plan 1. Dyspnea on exertion. This could be secondary to obesity hypoventilation syndrome as the patient with morbid obesity and history of COPD. We will require to have chest x-ray, 2D echocardiography shows normal LV systolic function with grade I LVDD and normal PAP. 2. Ataxia most likely due to phenytoin overdose. 3. Agitation and aggressiveness with background psychiatric disorder. 4. Hypertension. recommend calcium channel vin, clonidine as needed. Subjective Subjective Transferred to the med surg unit. No cardiac events. Objective Last 24 Hour Vital Signs Date Time Temp Pulse Resp B/P (MAP) Pulse Ox O2 Delivery O2 Flow Rate FiO2 07/04/18 16:00 98.0 96 20 148/100 (116) 96 07/04/18 12:00 97.7 84 20 143/100 (114) 96 07/04/18 08:31 Room Air 07/04/18 08:00 98.4 88 20 126/89 (101) 98 07/04/18 07:33 78 16 Room Air 21 07/04/18 04:00 98.5 84 20 128/86 (100) 94 07/04/18 00:00 97.7 90 20 116/85 (95) 94 Intake and Output 07/03/18 07/04/18 19:00 07:00 Intake Total 800 ml 400 ml Output Total 550 ml Balance 250 ml 400 ml Intake Oral 800 ml 400 ml Output Urine Total 550 ml # Voids 3 2 # Bowel Movements 1 2D Echo: LVEF 65%, Mild LVH, Grade I LVDD, RVSP 20 mmHg Laboratory Tests Test 07/04/18 06:20 White Blood Count 6.4 K/UL (4.8-10.8) Red Blood Count 5.21 M/UL (4.20-5.40) Hemoglobin 16.6 G/DL (12.0-16.0) H Hematocrit 46.6 % (37.0-47.0) Mean Corpuscular Volume 90 FL (80-99) Mean Corpuscular Hemoglobin 31.8 PG (27.0-31.0) H Mean Corpuscular Hemoglobin Concent 35.6 G/DL (32.0-36.0) Red Cell Distribution Width 10.5 % (11.6-14.8) L Platelet Count 243 K/UL (150-450) Mean Platelet Volume 6.5 FL (6.5-10.1) Neutrophils (%) (Auto) 52.7 % (45.0-75.0) Lymphocytes (%) (Auto) 35.8 % (20.0-45.0) Monocytes (%) (Auto) 8.2 % (1.0-10.0) Eosinophils (%) (Auto) 2.1 % (0.0-3.0) Basophils (%) (Auto) 1.2 % (0.0-2.0) Sodium Level 140 MMOL/L (136-145) Potassium Level 3.9 MMOL/L (3.5-5.1) Chloride Level 104 MMOL/L (98-107) Carbon Dioxide Level 30 MMOL/L (21-32) Anion Gap 6 mmol/L (5-15) Blood Urea Nitrogen 10 mg/dL (7-18) Creatinine 0.8 MG/DL (0.55-1.30) Estimat Glomerular Filtration Rate > 60 mL/min (>60) Glucose Level 100 MG/DL (74-106) Calcium Level 9.0 MG/DL (8.5-10.1) Objective HEENT: Atraumatic and normocephalic. ENT: Pupils are equal, round, and reactive to light and accommodation. Extraocular muscles intact. NECK: Short with morbid obesity. Could not assess JVP or carotid upstrokes. CARDIOVASCULAR: Normal S1, S2. Regular rate and rhythm. No murmurs, gallops, or rubs. LUNGS: Diminished breath sounds bilaterally. ABDOMEN: Soft, nontender, nondistended. No hepatosplenomegaly. Positive bowel sounds. EXTREMITIES: No evidence of edema, clubbing, or cyanosis. Tr Sapp MD Jul 04, 2018 23:56
[2018-07-05] MEDS ORDERED: Azithromycin 250mg tab ORAL SCH (09:00)
--- NOTE | 2018-07-07 14:08 | Discharge Summary ---
Discharge Summary Discharge Summary _ DATE OF ADMISSION: 07/01/2018 DATE OF DISCHARGE: 07/04/2018 REASON FOR ADMISSION: 68 years old female with past medical history of COPD, asthma, seizure disorder ,obesity, psychiatric disorder, presented to emergency department with complaint of recurrent falls. Patient reported recent vertigo sensation. Patient reported increased pain to left thumb. Upon evaluation vital signs were stable. Laboratory workup revealed no leukocytosis ,stable hemoglobin and hematocrit . Urinalysis with no evidence of UTI. Dilantin level toxic -22.7 X-ray of the left hand revealed no acute findings. CT head per ED report revealed no acute intracranial pathology. Patient admitted with diagnoses of acute encephalopathy, left thumb pain, vertigo ,COPD, history of drug abuse, schizophrenia, paranoid disorder. CONSULTANTS: column precaster Dr. Sapp pulmonary t Dr. Tejeda ID specialist [facility] surgery Dr. Mclain psychiatrist Dr. Savage [facility]SE: Patient admitted to telemetry floor. Dilantin was stopped. Cardiology, pulmonology and psychiatric evaluation requested. Echocardiogram revealed preserved ejection fraction of 60-65% with mild left ventricular hypertrophy, no wall motion abnormalities. Blood pressure was managed with calcium channel vin and clonidine on as needed basis. Patient noted to have dyspnea on exertion, possibly due to obesity hypoventilation syndrome. Chest X ray revealed no acute cardiopulmonary pathology. Supplemental oxygen provided as needed to keep pulse oximetry above 92%. Pulse oximetry was stable on room air. Pulmonary toilet provided with bronchodilators. Patient started on empiric antibiotic as per ID recommendations for COPD exacerbation. Ataxia was likely due to Dilantin toxicity , which was discontinued as mentioned above. Fall precautions were maintained. Patient was working with physical therapists. No evidence of seizure activity while in the hospital. Depakote continued. Psychiatry seen and evaluated patient , and diagnosed patient with schizophrenia of bipolar type. Psychiatrist optimized psychiatric medication regimen. Supportive care provided. DVT prophylaxis provided. Bowel regimen was instituted. Patient was working with physical and occupational therapists. Pain management was addressed as needed. Patient was counseled to continue abstinence from street drugs. Patient was clinically improved and was ready for discharge back to assisted living FINAL DIAGNOSES: Acute encephalopathy COPD exacerbation Dilantin toxicity Paranoid schizophrenia bipolar type Hypertension Seizure disorder History of asthma History of drug abuse Obesity Possible obesity hypoventilation syndrome DISCHARGE MEDICATIONS: See Medication Reconciliation list. DISCHARGE INSTRUCTIONS: Patient was discharged to assisted living I have been assigned to dictate discharge summary for this account. I was not involved in the patient's management. Mallory Rosas NP Jul 07, 2018 14:08
== END 2018-07-04 19:10 | disposition home or self-care (01) | DRG 71 ==
LOC: EDBD 14:31 → EMR 15:03 → 2E 16:43 → EDBEDREQ 17:22 → 3E 07-03 15:21
DX: G93.40 Encephalopathy, unspecified (principal); J44.1 Chronic obstructive pulmonary disease with (acute) exacerbation; F20.0 Paranoid schizophrenia; E66.2 Morbid (severe) obesity with alveolar hypoventilation; L03.90 Cellulitis, unspecified; F25.0 Schizoaffective disorder, bipolar type; T42.0X5A Adverse effect of hydantoin derivatives, initial encounter; I10 Essential (primary) hypertension; G40.909 Epilepsy, unspecified, not intractable, without status epilepticus; F19.11 Other psychoactive substance abuse, in remission; Z88.6 Allergy status to analgesic agent; T42.0X1A Poisoning by hydantoin derivatives, accidental (unintentional), initial encounter; R27.0 Ataxia, unspecified; R45.1 Restlessness and agitation; S20.222A Contusion of left back wall of thorax, initial encounter; S60.229A Contusion of unspecified hand, initial encounter; W19.XXXA Unspecified fall, initial encounter; R22.32 Localized swelling, mass and lump, left upper limb; M79.645 Pain in left finger(s); F17.200 Nicotine dependence, unspecified, uncomplicated
CPT/HCPCS: 36415; 71045; 80048; 80053; 80061; 80164; 80185; 81001; 83735; 84100; 84443; 85025; 85610; 85730; 93005; 93306; 94640; 94664; 99285; J7620